=== PATIENT | female | born 1945 | race Caucasian/White ===

== ENCOUNTER → 2023-06-27 08:02 | Outpatient (BNVA) | payer MEDICARE, OTHER, SELFPAY | PROVIDERS: Visit Provider Thoracic Surgery (Cardiothoracic Vascular Surgery) | DX: I96 Gangrene, not elsewhere classified (principal); L97.322 Non-pressure chronic ulcer of left ankle with fat layer exposed | CPT/HCPCS: 11042; 99213; A6021; A6212 ==

== ENCOUNTER → 2023-07-04 08:53 | Outpatient (BNVA) | payer MEDICARE, OTHER, SELFPAY | PROVIDERS: Visit Provider Thoracic Surgery (Cardiothoracic Vascular Surgery) | DX: I96 Gangrene, not elsewhere classified (principal); L97.322 Non-pressure chronic ulcer of left ankle with fat layer exposed | CPT/HCPCS: 11042; A6021 ==

== ENCOUNTER → 2023-07-12 10:03 | Outpatient (BNVA) | payer MEDICARE, OTHER, SELFPAY | PROVIDERS: Visit Provider Nurse Practitioner Family | DX: I96 Gangrene, not elsewhere classified (principal); L97.422 Non-pressure chronic ulcer of left heel and midfoot with fat layer exposed | CPT/HCPCS: 11042; A6021; A6212 ==

== ENCOUNTER → 2023-07-23 10:00 | Outpatient (BNVA) | payer MEDICARE, OTHER, SELFPAY | PROVIDERS: Visit Provider Thoracic Surgery (Cardiothoracic Vascular Surgery) | DX: I96 Gangrene, not elsewhere classified (principal); L97.322 Non-pressure chronic ulcer of left ankle with fat layer exposed | CPT/HCPCS: 97597; A6021; A6212 ×2 ==

== ENCOUNTER → 2023-07-30 10:06 | Outpatient (BNVA) | payer MEDICARE, OTHER, SELFPAY | PROVIDERS: Visit Provider Thoracic Surgery (Cardiothoracic Vascular Surgery) | DX: I96 Gangrene, not elsewhere classified (principal); L97.322 Non-pressure chronic ulcer of left ankle with fat layer exposed | CPT/HCPCS: 97597; A6212 ==

== ENCOUNTER → 2023-08-06 13:22 | Outpatient (BNVA) | payer MEDICARE, OTHER, SELFPAY | PROVIDERS: Visit Provider Thoracic Surgery (Cardiothoracic Vascular Surgery) | DX: Z85.820 Personal history of malignant melanoma of skin (principal); L97.322 Non-pressure chronic ulcer of left ankle with fat layer exposed | CPT/HCPCS: 97597; A6021; A6212 ==

== ENCOUNTER → 2023-08-13 13:13 | Outpatient (BNVA) | payer MEDICARE, OTHER, SELFPAY | PROVIDERS: Visit Provider Nurse Practitioner Family | DX: L97.322 Non-pressure chronic ulcer of left ankle with fat layer exposed (principal) | CPT/HCPCS: 97597; A6021; A6212 ==

== ENCOUNTER → 2023-08-20 10:29 | Outpatient (BNVA) | payer MEDICARE, OTHER, SELFPAY | PROVIDERS: Visit Provider Thoracic Surgery (Cardiothoracic Vascular Surgery) | DX: I96 Gangrene, not elsewhere classified (principal); L97.322 Non-pressure chronic ulcer of left ankle with fat layer exposed | CPT/HCPCS: 97597; A6021; A6212 ==

== ENCOUNTER → 2023-08-23 12:55 | Outpatient (BNVA) | payer MEDICARE, OTHER, SELFPAY | PROVIDERS: Referring Provider Thoracic Surgery (Cardiothoracic Vascular Surgery); Visit Provider Nurse Practitioner Family | DX: Z85.820 Personal history of malignant melanoma of skin (principal); Z80.8 Family history of malignant neoplasm of other organs or systems; D48.5 Neoplasm of uncertain behavior of skin; L57.8 Other skin changes due to chronic exposure to nonionizing radiation; L81.4 Other melanin hyperpigmentation | CPT/HCPCS: 11102; 99203 ==

== ENCOUNTER → 2023-08-27 08:55 | Outpatient (BNVA) | payer MEDICARE, OTHER, SELFPAY | PROVIDERS: Visit Provider Thoracic Surgery (Cardiothoracic Vascular Surgery) | DX: I96 Gangrene, not elsewhere classified (principal); L97.322 Non-pressure chronic ulcer of left ankle with fat layer exposed | CPT/HCPCS: 97597; A6021; A6212 ==

== ENCOUNTER → 2023-09-12 10:50 | Outpatient (BNVA) | payer MEDICARE, OTHER, SELFPAY | PROVIDERS: Visit Provider Thoracic Surgery (Cardiothoracic Vascular Surgery) | DX: I96 Gangrene, not elsewhere classified (principal); L97.322 Non-pressure chronic ulcer of left ankle with fat layer exposed | CPT/HCPCS: 97597; A6021 ==

== ENCOUNTER → 2023-09-26 09:50 | Outpatient (BNVA) | payer MEDICARE, OTHER, SELFPAY | PROVIDERS: Visit Provider Thoracic Surgery (Cardiothoracic Vascular Surgery) | DX: I96 Gangrene, not elsewhere classified (principal); L97.312 Non-pressure chronic ulcer of right ankle with fat layer exposed | CPT/HCPCS: 97597; A6212 ==

== ENCOUNTER 2023-10-29 14:37 | Outpatient (CLI) | payer MEDICARE, OTHER, SELFPAY ==
--- NOTE | 2023-10-29 14:56 | XRR_ITS ---
PROCEDURE INFORMATION: Exam: XR Chest Exam date and time: 10/29/2023 3:12 PM Age: 78 years old Clinical indication: Cough TECHNIQUE: Imaging protocol: Radiologic exam of the chest. Views: 2 views. COMPARISON: No relevant prior studies available. FINDINGS: Lungs: Unremarkable. No consolidation. Pleural spaces: Unremarkable. No pleural effusion. No pneumothorax. Heart/Mediastinum: Unremarkable. No cardiomegaly. Bones/joints: Unremarkable. XR/XR chest 2V* [id number] IMPRESSION: No acute findings.
== END 2023-10-29 14:38 | disposition home or self-care (01) ==
LOC: RAD 14:38
PROVIDERS: PCP Family Medicine; Visit Provider Family Medicine
DX: R05.9 Cough, unspecified (principal)
CPT/HCPCS: 71046

== ENCOUNTER → 2023-11-06 09:22 | Outpatient (BNVA) | payer MEDICARE, OTHER, SELFPAY | PROVIDERS: PCP Family Medicine; Visit Provider Nurse Practitioner Family | DX: Z85.820 Personal history of malignant melanoma of skin (principal); L57.8 Other skin changes due to chronic exposure to nonionizing radiation; L81.4 Other melanin hyperpigmentation; L57.0 Actinic keratosis; L82.1 Other seborrheic keratosis | CPT/HCPCS: 17000; 99213 ==

== ENCOUNTER 2024-01-03 14:23 | Outpatient (CLI) | payer MEDICARE, OTHER, SELFPAY ==
--- NOTE | 2024-01-03 14:26 | XRR_ITS ---
PROCEDURE INFORMATION: Exam: XR Right Shoulder Exam date and time: 01/03/2024 2:30 PM Age: 78 years old Clinical indication: Injury or trauma; Fall; Blunt trauma (contusions or hematomas); Shoulder; Right; Additional info: R shoulder pain after fall TECHNIQUE: Imaging protocol: Radiologic exam of the right shoulder. Views: 2 or more views. COMPARISON: CR XR chest 2V* [id number] 10/29/2023 3:12 PM FINDINGS: Bones/joints: The glenohumeral articulation is grossly intact with moderate osteoarthritis. The acromioclavicular articulation is grossly intact with mild-moderate osteoarthritis. Soft tissues: No gross soft tissue abnormality. XR/XR shoulder RT min 2V* [id number] IMPRESSION: 1. No evidence of fracture or subluxation. If there is concern for labral, muscle or tendon pathology, follow-up outpatient MRI may be helpful.
== END 2024-01-03 14:24 | disposition home or self-care (01) ==
PROVIDERS: PCP Family Medicine; Visit Provider Family Medicine
DX: M25.511 Pain in right shoulder (principal); W19.XXXA Unspecified fall, initial encounter
CPT/HCPCS: 73030

== ENCOUNTER 2024-01-21 14:09 | Outpatient (CLI) | payer OTHER, MEDICARE, SELFPAY ==
--- NOTE | 2024-01-21 14:30 | MR_ITS ---
WS: [id number] MRI RIGHT SHOULDER HISTORY: right shoulder pain after fall, reduced range of motion COMPARISON: Radiographs 01/02/2014 TECHNIQUE: Multiplanar sequences of the shoulder joint are submitted. Moderate AC joint arthritis. There is mild osteophyte encroachment upon the supraspinatus. Mild subac romial impingement. High riding humeral head. No os acromion. Normal position of the biceps tendon. There is a large fluid-filled gap involving the supraspinatus tendon consistent with a full-thickness tear. Supraspinatus tendon is retracted to the medial humeral head. There is also fluid extending in to the rotator cuff interval. There is a small amount of edema in the supraspinatus muscle. Subscapularis tendon normal. Infraspinatus tendon appears normal. There is a small amount of fluid ad jacent to the distal tendon but the tendon itself appears to be normally inserting. There is a small amount of marrow edema in the posterior lateral humeral head. Small trabecular fractures and change i n the normal cortical pattern is identified. No labral tear. IMPRESSION: 1. Large full-thickness tear of the supraspinatus tendon with retraction to the medial humeral head. 2. Marrow edema with trabecular microfractures involving the posterior lateral humeral head. 3. Moderate AC joint arthritis. Mild encroachment upon the remaining supraspinatus tendon. 4. A small amount of edema in the supraspinatus muscle.
== END 2024-01-21 14:10 | disposition home or self-care (01) ==
LOC: RAD 14:10
PROVIDERS: PCP Family Medicine; Visit Provider Family Medicine
DX: M25.511 Pain in right shoulder (principal); W19.XXXA Unspecified fall, initial encounter; M75.121 Complete rotator cuff tear or rupture of right shoulder, not specified as traumatic
CPT/HCPCS: 73221

== ENCOUNTER → 2024-04-03 08:19 | Outpatient (BNVA) | payer MEDICARE, OTHER, SELFPAY | PROVIDERS: PCP Family Medicine; Visit Provider Obstetrics & Gynecology | DX: R10.31 Right lower quadrant pain (principal) | CPT/HCPCS: 76830; 81000 ==

== ENCOUNTER 2024-04-04 10:18 | Outpatient (CLI) | payer MEDICARE, OTHER, SELFPAY ==
--- NOTE | 2024-04-04 10:30 | MM_ITS ---
WS: [id number] Bilateral screening 3D tomosynthesis digital mammogram, 04/04/2024 Clinical Data: Z12.31 - Encounter for screening mammogram for malignant ... Comparison: None. Findings: The breast parenchymal pattern shows fibroglandular tissue. No spiculated masses or clustered calcifi cations are seen. There are no secondary signs of carcinoma. MM/[place] [id number] Impression: 1. Negative bilateral mammogram with no prior exam for review. 2. Recommend annual screening mammograms. BIRADS: 1-Negative FOLLOW UP: 1 Year Follow-up The CAD felt checker was used.
== END 2024-04-04 10:19 | disposition home or self-care (01) ==
PROVIDERS: Visit Provider Obstetrics & Gynecology
DX: Z12.31 Encounter for screening mammogram for malignant neoplasm of breast (principal); R92.333 Mammographic heterogeneous density, bilateral breasts
CPT/HCPCS: 77063; 77067

== ENCOUNTER 2024-04-07 18:02 | Emergency (ER) | payer MEDICARE, OTHER, SELFPAY ==
--- NOTE | 2024-04-07 18:01 | ECG_ITS ---
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 Measurements Intervals [place] Rate: 77 P: 55 OK: 161 QRS: 12 QRSD: 89 T: 51 QT: 350 QTc: 398 Interpretive Statements SINUS RHYTHM No previous ECG available for comparison Electronically Signed On 04-11-2024 13:19:43 CDT by Corey Mcgowan M.D. [id number] f
--- NOTE | 2024-04-07 18:03 | XRR_ITS ---
PROCEDURE INFORMATION: Exam: XR Chest Exam date and time: 04/07/2024 6:20 PM Age: 78 years old Clinical indication: Chest wall pain; Additional info: Cp TECHNIQUE: Imaging protocol: Radiologic exam of the chest. Views: 1 view. COMPARISON: CR XR chest 2V* [id number] 10/29/2023 3:12 PM FINDINGS: Lungs: Left upper lobe 15.5 mm nodule may be partially calcified, dedicated chest CT advised for further evaluation, findings are somewhat similar to prior exam. Pleural spaces: Unremarkable. No pleural effusion. No pneumothorax. Heart/Mediastinum: Unremarkable. No cardiomegaly. Bones/joints: Unremarkable. XR/XR chest 1V portable [id number] IMPRESSION: 1. No acute findings. 2. Left upper lobe 15.5 mm nodule may be partially calcified, dedicated chest CT advised for further evaluation, findings are somewhat similar to prior exam.
[2024-04-07 18:07] VITALS: BP 145/70; PULSE 78; RESP 16; TEMP 36.7; O2SAT 97
[2024-04-07 19:17] LABS: Basophils % 0.2 %; Eosinophils # 0.6 10^3/uL (0.0-0.8); Eosinophils % 4.6 %; Hematocrit 33.3 % (36-47); Lymphocytes # 3.3 10^3/uL (0.8-4.8); Lymphocytes % 27.5 %; Mean Corpuscular HGB Conc 32.7 g/dL (30-55); Mean Corpuscular Hemoglobin 32.6 pg (27-33); Mean Corpuscular Volume 99.7 fl (85-98); Mean Platelet Volume 10.5 fL (7.4-10.4); Monocytes # 3.3 10^3/uL (0.2-0.9); Monocytes % 27.8 %; Neutrophils # 4.63 10^3/uL (1.8-7.7); Neutrophils % 38.5 %; Nucleated Red Blood Cells % 0 %; Platelet Count 606 10^3/cmm (157-399); Red Blood Count 3.34 10^6/uL (3.85-5.65); Red Cell Distribution Width 14.8 % (12.1-15.1); White Blood Count 12.02 10^3/uL (3.29-11.43)
[2024-04-07 19:37] LABS: Troponin(5th) Baseline 8 ng/L (0-10)
[2024-04-07 19:44] LABS: Alanine Aminotransferase 12 U/L (0-33); Albumin Level 4.7 g/dL (3.5-5.2); Alkaline Phosphatase 98 U/L (35-105); Anion Gap 16.6 (5-19); Aspartate Amino Transferase 10 U/L (0-32); Blood Urea Nitrogen 25 mg/dL (8-23); Calcium 9.8 mg/dL (8.5-10.5); Carbon Dioxide 20 mmol/L (22-29); Chloride 106 mmol/L (98-107); Creatinine Clr Calc Pharmacy 38.6846; Globulin 3.5 g/dL (1.3-4.6); Glucose 98 mg/dL (65-115); NT Pro B Type Natriuretic Pept 331 pg/mL (0-450); Osmolality Calculated 290 mOsm/kg (285-295); Potassium 4.6 mmol/L (3.5-5.1); Sodium 138 mmol/L (136-145); Total Bilirubin 0.3 mg/dL (0.15-1.2); Total Protein 8.2 g/dL (6.6-8.7)
--- NOTE | 2024-04-07 20:47 | ECG_ITS ---
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 Measurements Intervals [place] Rate: 74 P: 68 NH: 165 QRS: 28 QRSD: 90 T: 52 QT: 365 QTc: 405 Interpretive Statements SINUS RHYTHM Compared to ECG 04/07/2024 18:01:44 No significant changes Electronically Signed On 04-11-2024 13:47:06 CDT by Corey Mcgowan M.D. [id number]
[2024-04-07 20:56] LABS: Troponin 5 2HR 9.22 ng/L (0-10); Troponin 5 2HR Delta 1.22 ABS# (0-10)
[2024-04-07] MEDS: lidocaine 2% viscous 15 ML, aluminum-mag hydrox-simethicon 30 ML, sucralfate oral liq 1 GM PO (22:08)
[2024-04-07 22:09] VITALS: BP 103/76; PULSE 81; RESP 16; O2SAT 97
--- NOTE | 2024-04-07 22:38 | W.ED.CHESTPA ---
HPI - Chest Pain General: Chief Complaint: Chest Pain Stated Complaint: chest pressure sob Time Seen by Provider: 04/07/24 20:32 Source: patient Mode of arrival: ambulatory Limitations: no limitations History of Present Illness: Patient presents emergency department today for evaluation and treatment of approximately 2 weeks of lower, retrosternal chest discomfort. She states that it is more noticeable and more painful at night. She has not been running any fevers. No coughing. She does have a history of leukemia and reports that for the last 3 years has been on oral chemotherapy. She developed symptoms of urinary tract infection a week or so ago after a long car trip and is currently on Bactrim. She reports dysuria and urinary symptoms as significantly improved if not completely resolved. Patient has had a history of GERD in the past. She reports having to have esophageal dilatation in the past but, states this discomfort is different than what she remembers from her previous reflux. She has also been taking Tums and a Prilosec for the last several days without noticeable improvement of her symptoms. Patient had pizza for lunch. She has not been vomiting. Review of Systems General: Reports: 10 or more systems reviewed and unremarkable except in HPI and below PFSH ED PFSH: Family History Mother Diabetes Hypertension Sister CAD (coronary artery disease) Heart disease Hypertension Diabetes Father Lymphoma Brother Hypertension Denies family history of Colon cancer Ovarian cancer Hyperlipidemia Breast cancer Uterine cancer Thyroid disease Stroke Social History Smoking and tobacco/nicotine status: former use of tobacco/nicotine Alcohol intake: never Substance/Drug Use: never Household members: spouse Marital status: Marital status details: 18 Number of children: 4 Current 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 status: retired Pam/Rastafari: Yazidism Physical Exam Const: COMMON NORMALS: no acute distress, patient oriented x3 and alert Eye: COMMON NORMALS: Equal, round and reactive pupils present, EOMs intact bilaterally and conjunctivae normal CONJUNCTIVA: Yes conjunctivae normal PUPIL: Yes Equal, round and reactive pupils present Neck/C-Spine: COMMON NORMALS: no JVD Lymph: LYMPHATIC: no lymphadenopathy noted Resp: COMMON NORMALS: normal respiratory effort, No retractions and No use of accessory muscles Cardio: COMMON NORMALS: no JVD, regular rate and regular rhythm RATE: regular rate RHYTHM: regular rhythm : COMMON NORMALS: Yes no CVA tenderness BLADDER/KIDNEY EXAM: Yes no CVA tenderness Back/Pelvis: COMMON NORMALS: no CVA tenderness, thoracic and lumbar spine normal to inspection and thoraco-lumbar ROM normal Extremity: COMMON NORMALS: normal to inspection, full ROM and no pedal edema Neuro: COMMON NORMALS: patient oriented x3 SENSORIUM/ORIENTATION: Yes alert Skin: COMMON NORMALS: no rashes or lesions noted and turgor normal GENERAL SKIN EXAM: no rashes or lesions noted and turgor normal Course Vital Signs: Vital signs: Vital Signs Temperature 98.1 F 04/07/24 22:51 Pulse Rate 81 04/07/24 22:51 Respiratory Rate 16 04/07/24 22:51 Blood Pressure 103/76 04/07/24 22:51 Pulse Oximetry 97 04/07/24 22:51 MDM - Chest Pain Medical Decision Making Patient's physical examination is reassuring today. Lab work shows no signs of any acute concerns and chest x-ray reveals a stable, calcifying area approximately 15 mm in size, similar to previous findings in previous films. No signs of any pleural effusion, cardiomegaly, or pneumonias. Discussed the case with Dr. Clark. As the cardiac evaluation and infection evaluation are otherwise negative, recommended treatment with a GI cocktail to see if symptoms are improved. Discussed with patient who wishes to proceed with the GI cocktail and, was found to have improvement of her symptoms after treatment. She was encouraged to continue using her Prilosec regularly and information regarding dietary recommendations provided. She is still requested to have follow-up with her primary care doctor or her oncologist to discuss her symptoms. She was given strict return precautions for change or worsening in condition including dizziness, syncope, shortness of breath, one-sided facial droop or one-sided body weakness. For the if she needs to be seen and reevaluated back in the ER. She verbalized understanding and agreement to treatment plan. Differential Diagnosis Unlikely acute massive pulmonary embolism, acute respiratory failure, acute myocardial infarction, cardiac arrest or sudden cardiac Lab Data 04/07/24 18:40 04/07/24 18:40 Radiology Impressions Chest X-Ray 04/07/24 18:03 IMPRESSION: 1. No acute findings. 2. Left upper lobe 15.5 mm nodule may be partially calcified, dedicated chest CT advised for further evaluation, findings are somewhat similar to prior exam. Laboratory Results WBC 12.02 10^3/uL (3.29-11.43) H 04/07/24 18:40 RBC 3.34 10^6/uL (3.85-5.65) L 04/07/24 18:40 Hgb 10.90 g/dL (11.27-16.99) L 04/07/24 18:40 Hct 33.3 % (36-47) L 04/07/24 18:40 MCV 99.7 fl (85-98) H 04/07/24 18:40 MCH 32.6 pg (27-33) 04/07/24 18:40 MCHC 32.7 g/dL (30-55) 04/07/24 18:40 RDW 14.8 % (12.1-15.1) 04/07/24 18:40 Plt Count 606 10^3/cmm (157-399) H 04/07/24 18:40 MPV 10.5 fL (7.4-10.4) H 04/07/24 18:40 Neut % (Auto) 38.5 % 04/07/24 18:40 Lymph % (Auto) 27.5 % 04/07/24 18:40 [place] % (Auto) 27.8 % 04/07/24 18:40 Eos % (Auto) 4.6 % 04/07/24 18:40 Baso % (Auto) 0.2 % 04/07/24 18:40 Neut # (Auto) 4.63 10^3/uL (1.8-7.7) 04/07/24 18:40 Lymph # (Auto) 3.3 10^3/uL (0.8-4.8) 04/07/24 18:40 [place] # (Auto) 3.3 10^3/uL (0.2-0.9) H 04/07/24 18:40 Eos # (Auto) 0.6 10^3/uL (0.0-0.8) 04/07/24 18:40 Baso # (Auto) 0.0 10^3/uL (0.0-0.1) 04/07/24 18:40 Nucleated RBC % (auto) 0 % 04/07/24 18:40 Nucleated RBCs # 0.0 /100WBC 04/07/24 18:40 Sodium 138 mmol/L (136-145) 04/07/24 18:40 Potassium 4.6 mmol/L (3.5-5.1) 04/07/24 18:40 Chloride 106 mmol/L (98-107) 04/07/24 18:40 Carbon Dioxide 20 mmol/L (22-29) L 04/07/24 18:40 Anion Gap 16.6 (5-19) 04/07/24 18:40 BUN 25 mg/dL (8-23) H 04/07/24 18:40 Creatinine 1.1 mg/dL (0.5-0.9) H 04/07/24 18:40 GFR Calculation Not Reportable 04/07/24 18:40 Glucose 98 mg/dL (65-115) 04/07/24 18:40 Calculated Osmolality 290 mOsm/kg (285-295) 04/07/24 18:40 Calcium 9.8 mg/dL (8.5-10.5) 04/07/24 18:40 Total Bilirubin 0.3 mg/dL (0.15-1.2) 04/07/24 18:40 AST 10 U/L (0-32) 04/07/24 18:40 ALT 12 U/L (0-33) 04/07/24 18:40 Alkaline Phosphatase 98 U/L (35-105) 04/07/24 18:40 Troponin T Baseline 8 ng/L (0-10) 04/07/24 18:40 Troponin T 120 Minute 9.22 ng/L (0-10) 04/07/24 20:20 Delta Troponin T 1.22 ABS# (0-10) 04/07/24 20:20 NT-Pro-B Natriuret Pep 331 pg/mL (0-450) 04/07/24 18:40 Total Protein 8.2 g/dL (6.6-8.7) 04/07/24 18:40 Albumin 4.7 g/dL (3.5-5.2) 04/07/24 18:40 Globulin 3.5 g/dL (1.3-4.6) 04/07/24 18:40 All radiology interpretation(s) finalized by discharge Discharge Plan Discharge Patient Disposition: Home Clinical Impression: Chest pain, non-cardiac, Leukemia Condition: Stable Prescriptions: No Action clopidogrel 75 mg tablet 75 mg PO DAILY Jakafi 10 mg tablet 10 mg PO BID furosemide 20 mg tablet 40 mg PO DAILY PRN omeprazole 40 mg capsule,delayed release(DR/EC) 40 mg PO DAILY PRN meloxicam 15 mg tablet 15 mg PO DAILY PRN multivitamin Tablet 1 tab PO DAILY Papaya Enzyme Tablet 1 tab PO TID Rx Instructions: administer with meals ketoconazole 2 % shampoo 1 applic topical Q14D PRN Galzin 50 mg (zinc) capsule 30 mg PO DAILY Glucosamine-Chondroitin Complx Capsule PO BID acetaminophen [Tylenol Extra Strength] 500 mg tablet 500 mg PO Q6H PRN calcium carbonate 600 mg calcium (1,500 mg) tablet 1,200 mg PO BID calcium carbonate [Tums] 200 mg calcium (500 mg) tablet,chewable 200 mg PO BID PRN ibuprofen 200 mg tablet 200 mg PO Q6H PRN docusate sodium [Colace] 100 mg capsule 100 mg PO DAILY PRN magnesium 250 mg tablet 500 mg PO DAILY clobetasol 0.05 % solution 1 applic topical DAILY loratadine [Allergy Relief (loratadine)] 10 mg tablet 10 mg PO DAILY cranberry 500 mg capsule 2,000 mg PO DAILY Rx Instructions: administer with meals vitamin B complex Capsule 1 cap PO DAILY cholecalciferol (vitamin D3) 50 mcg (2,000 unit) capsule 50 mcg PO DAILY turmeric 400 mg capsule 800 mg PO DAILY Folic Acid Vitamin B9 1,000 mg PO DAILY Iron 36 mg plus VC PO DAILY Rx Instructions: with 4 oz prune juice avmacol with myrosimax PO Rx Instructions: daily with meal sulfamethoxazole-trimethoprim [Bactrim DS] 800-160 mg tablet 1 tab PO BID 7 Days Qty: 14 0RF Discharge Orders: Discharge ED (Routine); Ordered 04/07/24 Ordered By: Alexa Rodriguez Referrals: Sandra Platt MD [Primary Care Provider] - Discharge Diet: Usual diet Discharge Activity: Increase activity as tolerated Patient Instructions: Chest Pain (ED), GERD (Gastroesophageal Reflux Disease) (DC) Activity Restrictions/Additional Instructions: Lab work today shows stable white cells, red cells, and platelet counts. No other abnormal labs appreciated today. Your cardiac evaluation showed no signs of any heart involvement of this chest pain. As you did have some improvement with her GI cocktail I would encourage you to start back on your Prilosec regularly and call your doctor first thing in the morning to schedule follow-up appointment. X-ray shows an area of calcification in your lung which has been visualized in the past but, the radiologist recommended further evaluation of this area in the future. However, I do not believe it is the cause of your discomfort as it is not located in the area you are indicating of pain. However, if you have any change or worsening in your chest pain including shortness of breath, dizziness lightheadedness or weakness we do recommend being seen and reevaluated in the ER. 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
[2024-04-07 22:51] VITALS: BP 103/76; PULSE 81; RESP 16; TEMP 36.7; O2SAT 97
== END 2024-04-07 22:53 | disposition home or self-care (01) ==
PROVIDERS: Emergency Medicine; Emergency Provider Physician Assistant; PCP Family Medicine
DX: R07.89 Other chest pain (principal); C95.90 Leukemia, unspecified not having achieved remission; Z79.02 Long term (current) use of antithrombotics/antiplatelets; Z87.891 Personal history of nicotine dependence
CPT/HCPCS: 36415; 71045; 80053; 83880; 84484; 85025; 93005; 99285

== ENCOUNTER → 2024-04-11 09:11 | Outpatient (BNVA) | payer MEDICARE, OTHER, SELFPAY | PROVIDERS: PCP Family Medicine; Visit Provider Family Medicine | DX: N39.0 Urinary tract infection, site not specified (principal) | CPT/HCPCS: 81000 ==

== ENCOUNTER → 2024-05-06 11:13 | Outpatient (BNVA) | payer MEDICARE, OTHER, SELFPAY | PROVIDERS: PCP Family Medicine; Visit Provider Nurse Practitioner Family | DX: L57.8 Other skin changes due to chronic exposure to nonionizing radiation (principal); L81.4 Other melanin hyperpigmentation; Z85.820 Personal history of malignant melanoma of skin; L57.0 Actinic keratosis; L82.1 Other seborrheic keratosis; S40.861A Insect bite (nonvenomous) of right upper arm, initial encounter; S30.861A Insect bite (nonvenomous) of abdominal wall, initial encounter; S30.860A Insect bite (nonvenomous) of lower back and pelvis, initial encounter; X58.XXXA Exposure to other specified factors, initial encounter; D18.01 Hemangioma of skin and subcutaneous tissue | CPT/HCPCS: 10120; 17000; 99214 ==

== ENCOUNTER → 2024-05-13 11:10 | Outpatient (BNVA) | payer MEDICARE, OTHER, SELFPAY | PROVIDERS: PCP Family Medicine; Visit Provider Student in an Organized Health Care Education/Training Program | DX: M75.121 Complete rotator cuff tear or rupture of right shoulder, not specified as traumatic; M19.011 Primary osteoarthritis, right shoulder | CPT/HCPCS: 99213 ==

== ENCOUNTER 2024-06-24 09:21 | Outpatient (CLI) | payer MEDICARE, OTHER, SELFPAY ==
--- NOTE | 2024-06-24 09:15 | CTR_ITS ---
PROCEDURE INFORMATION: Exam: CT Abdomen And Pelvis With Contrast Exam date and time: 06/24/2024 11:11 AM Age: 78 years old Clinical indication: Abdominal pain; Localized; Right; Prior surgery; Surgery date: 6+ months; Surgery type: Appy, bowel obstruction; Patient HX: Leukemia; Additional info: R10.9 - unspecified abdominal pain TECHNIQUE: Imaging protocol: Computed tomography of the abdomen and pelvis with contrast. Radiation optimization: All CT scans at this facility use at least one of these dose optimization techniques: automated exposure control; mA and/or kV adjustment per patient size (includes targeted exams where dose is matched to clinical indication); or iterative reconstruction. Contrast material: OMNI 350; Contrast volume: 100 ml; Contrast route: INTRAVENOUS (IV); COMPARISON: US transvaginal [id number] 04/03/2024 8:25 AM RADIATION DOSE METRICS: Total DLP (mGy-cm): 391.35 FINDINGS: Lungs: Multiple old calcified granulomas of the right lung base. Liver: The liver is normal in appearance. No focal liver mass or intrahepatic biliary dilatation. Gallbladder and biliary ducts: The gallbladder is unremarkable with no calcified stones visualized and no strandy inflammatory changes surrounding the gallbladder. Pancreas: The pancreas is normal in appearance. No evidence of pancreatic ductal dilatation. Spleen: There is a 3.2 cm hypodense band along the inferior margin of the spleen. This lesion is nonspecific. Consider initial evaluation with ultrasound. The spleen is mildly enlarged measuring about 13.6 cm. Adrenal glands: The adrenal glands are normal in appearance. Kidneys and ureters: There are bilateral nonobstructing calculi in the calices of each kidney measuring up to 3.5 mm in a lower pole calyx on the left side. Stomach and bowel: The small bowel loops are not thickened and are nondilated. There is colonic diverticulosis but no evidence of diverticulitis. Appendix: The appendix is not identified, but there are no inflammatory changes in its expected region. Intraperitoneal space: Unremarkable. No free air. No significant fluid collection. Vasculature: Unremarkable. No abdominal aortic aneurysm. Lymph nodes: Unremarkable. No enlarged lymph nodes. Urinary bladder: The urinary bladder is normal in appearance. Reproductive: Unremarkable as visualized. Bones/joints: No acute osseous lesions. There are multilevel chronic degenerative changes throughout the lumbar spine. Soft tissues: Unremarkable. CT/CT abdomen pelvis w con* [id number] IMPRESSION: 1. Colonic diverticulosis but no evidence of diverticulitis. 2. Mild splenomegaly. There is a 3.2 cm hypodense band at the inferior margin of the spleen, nonspecific but consider nonemergent ultrasound of the spleen to further evaluate. 3. Bilateral nonobstructing renal calculi.
[2024-06-24] MEDS: iohexol 350 mg/mL 500 mL Btl (per mL) PO (10:09)
[2024-06-24 11:23] LABS: Blood Urea Nitrogen 20 mg/dL (8-23)
[2024-06-24] MEDS: iohexol 350 mg/mL 500 mL Btl (per mL) IV (11:37)
== END 2024-06-24 09:22 | disposition home or self-care (01) ==
PROVIDERS: PCP Family Medicine; Visit Provider Family Medicine
DX: K57.90 Diverticulosis of intestine, part unspecified, without perforation or abscess without bleeding (principal); Z98.890 Other specified postprocedural states; J84.10 Pulmonary fibrosis, unspecified; D73.89 Other diseases of spleen; R16.1 Splenomegaly, not elsewhere classified; N20.0 Calculus of kidney; R10.9 Unspecified abdominal pain
CPT/HCPCS: 74177; 82565; 84520

== ENCOUNTER 2024-06-25 12:07 | Outpatient (CLI) | payer MEDICARE, OTHER, SELFPAY ==
--- NOTE | 2024-06-25 12:13 | XR_ITS ---
WS: [id number] Examination: XR lumbar spine 2-3V* [id number] Reason for Exam: worsening acute low back pain Date: 06/25/2024 Comparison: None. Findings: The bone density is diminished. The pedicles are intact. There is mild convexity with curvature to the left There is superior endplate compression of L4. There is subtle anterolisthesis at L3-4 with grade 1 an terolisthesis at L4-5. There is narrowing of the L4-5 and L5-S1 disc. Anterior lipping and osteophyte s are present. There is diffuse facet arthropathy. XR/XR lumbar spine 2-3V* [id number] Impression: There is osteopenia Superior endplate compression of L4 is identified, age-indeterminate. Clinical correlation for pain at this level is needed. There is subtle L3-4 anterolisthesis and grade 1 L4-5 anterolisthesis Degenerative changes are present. The disc space narrowing anterior lipping and prominent facet arthropathy as above.
== END 2024-06-25 12:08 | disposition home or self-care (01) ==
LOC: RAD 12:10
PROVIDERS: PCP Family Medicine; Visit Provider Family Medicine
DX: S32.040A Wedge compression fracture of fourth lumbar vertebra, initial encounter for closed fracture (principal); M85.88 Other specified disorders of bone density and structure, other site; X58.XXXA Exposure to other specified factors, initial encounter; M51.36 Other intervertebral disc degeneration, lumbar region
CPT/HCPCS: 72100

== ENCOUNTER 2024-06-26 07:43 | Outpatient (CLI) | payer MEDICARE, OTHER, SELFPAY ==
--- NOTE | 2024-06-26 08:00 | US_ITS ---
WS: [id number] Limited abdomen ultrasound. HISTORY: 3.2 cm hypodense band at the inferior margin of the spleen COMPARISON: CT 06/24/2024 Spleen measures 13.2 x 11.6 x 4.6 cm. Previous described hypodense band noted by CT is not evident on the ultrasound. There is a normal configuration of the spleen. This abnormal enhancement on the CT m ay have been due to the early imaging obtained for the exam. No abnormality or infarct noted by ultra sound. There is no adjacent fluid. LEFT kidney is negative. US/US abdomen limited [id number] IMPRESSION: Unremarkable ultrasound evaluation of the spleen. Variable attenuation in the s pleen on the CT of may've been related to imaging during early contrast injecti on.
== END 2024-06-26 07:44 | disposition home or self-care (01) ==
LOC: RAD 07:43
PROVIDERS: PCP Family Medicine; Visit Provider Family Medicine
DX: Q89.09 Congenital malformations of spleen (principal)
CPT/HCPCS: 76705

== ENCOUNTER → 2024-07-03 15:23 | Outpatient (BNVA) | payer MEDICARE, OTHER, SELFPAY | PROVIDERS: PCP Family Medicine; Visit Provider Orthopaedic Surgery | DX: S32.040A Wedge compression fracture of fourth lumbar vertebra, initial encounter for closed fracture (principal); X58.XXXA Exposure to other specified factors, initial encounter | CPT/HCPCS: 72100 ==

== ENCOUNTER 2024-07-07 03:24 | Emergency (ER) | payer MEDICARE, OTHER, SELFPAY ==
[2024-07-07 03:26] VITALS: BP 143/63; PULSE 90; RESP 18; TEMP 37.4; O2SAT 97; BMI 28.3
--- NOTE | 2024-07-07 03:57 | W.ED.BACK ---
HPI - Back Pain/Injury General: Chief Complaint: Back Pain/Injury Stated Complaint: BACK PAIN Time Seen by Provider: 07/07/24 03:27 History of Present Illness: 78-year-old female tells me she has a compression fracture at L4. She has been seen by orthopedic spine for this. She has an MRI scheduled for later this morning at 8 AM. She says that she has been on oxycodone and ibuprofen for pain, but that has not really been helping. She says that when the pain gets severe, she cannot make it to the bathroom before she loses control of her urine. She denies any fever. She states that she last took oxycodone around 8 PM last night. She could not get out of bed this morning, so she called an ambulance. Related Data Home Medications Medication Instructions Recorded Confirmed clopidogrel 75 mg tablet 75 mg PO DAILY 10/25/23 07/03/24 furosemide 20 mg tablet 40 mg PO DAILY PRN 10/25/23 07/03/24 omeprazole 40 mg capsule,delayed 40 mg PO DAILY PRN 10/25/23 07/03/24 release ruxolitinib 10 mg tablet (Jakafi) 10 mg PO BID 10/25/23 07/03/24 Folic Acid Vitamin B9 PO DAILY 03/10/24 07/03/24 Iron 36 mg plus VC PO DAILY 03/10/24 07/03/24 acetaminophen 500 mg tablet 500 mg PO Q6H PRN 03/10/24 07/03/24 (Tylenol Extra Strength) avmacol with myrosimax PO 03/10/24 07/03/24 calcium carbonate 1,200 mg PO BID 03/10/24 07/03/24 calcium carbonate (Tums) 200 mg PO BID PRN 03/10/24 07/03/24 carica papaya (Papaya Enzyme 1 tab PO TID 03/10/24 07/03/24 tablet) cholecalciferol (vitamin D3) 50 50 mcg PO DAILY 03/10/24 07/03/24 mcg (2,000 unit) capsule clobetasol 0.05 % scalp solution 1 applic topical DAILY 03/10/24 07/03/24 cranberry 500 mg capsule 2,000 mg PO DAILY 03/10/24 07/03/24 docusate sodium 100 mg capsule 100 mg PO DAILY PRN 03/10/24 07/03/24 (Colace) [id number] C-Mn cap PO BID 03/10/24 07/03/24 capsule (Glucosamine-Chondroitin Complex capsule) ibuprofen 200 mg tablet 200 mg PO Q6H PRN 03/10/24 07/03/24 ketoconazole 2 % shampoo 1 applic topical Q14D PRN 03/10/24 07/03/24 loratadine 10 mg tablet (Allergy 10 mg PO DAILY 03/10/24 07/03/24 Relief (loratadine)) magnesium 250 mg tablet 500 mg PO DAILY 03/10/24 07/03/24 meloxicam 15 mg tablet 15 mg PO DAILY PRN 03/10/24 07/03/24 multivitamin 1 tab PO DAILY 03/10/24 07/03/24 turmeric 400 mg capsule 800 mg PO DAILY 03/10/24 07/03/24 vitamin B complex 1 cap PO DAILY 03/10/24 07/03/24 zinc acetate 50 mg (zinc) capsule 30 mg PO DAILY 03/10/24 07/03/24 (Galzin) Previous Rx's Medication Instructions Recorded sulfamethoxazole 800 1 tab PO BID 7 days #14 tabs 04/03/24 mg-trimethoprim 160 mg tablet (Bactrim DS) oxybutynin chloride 5 mg See Rx Instructions .Route 05/01/24 tablet,extended release 24 hr .COMPLEX #90 tabs lidocaine 5 % topical patch 3 patch topical DAILY #30 ea 07/03/24 (Tridacaine) oxycodone 10 mg tablet 10 mg PO Q4H PRN pain 10 days #40 07/03/24 tabs hydromorphone 2 mg tablet 2 mg PO Q6H PRN pain #7 tabs 07/07/24 methylprednisolone 4 mg tablets in See Rx Instructions PO .COMPLEX 07/07/24 a dose pack (Medrol (Ron)) #21 ea Allergies Allergy/AdvReac Type Severity Reaction Status Date / Time Tetanus Vaccines and Toxoid Allergy Unknown Verified 07/07/24 03:31 Predisone Allergy Intermediate confusion Uncoded 07/07/24 03:31 [facility] PFSH: Family History Mother Diabetes Hypertension Sister CAD (coronary artery disease) Heart disease Hypertension Diabetes Father Lymphoma Brother Hypertension Denies family history of Colon cancer Ovarian cancer Hyperlipidemia Breast cancer Uterine cancer Thyroid disease Stroke Social History Smoking and tobacco/nicotine status: never used tobacco/nicotine Alcohol intake: never Substance/Drug Use: never Household members: spouse Marital status: Marital status details: 18 Number of children: 4 Current 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 status: retired [employer] Physical Exam Const: GENERAL APPEARANCE: cooperative and frail appearing; not ill appearing HENMT: COMMON NORMALS: normocephalic, atraumatic and Normal external nose present HEAD & SCALP: normocephalic and atraumatic FACE & SINUS: normal facial exam and face symmetric NOSE: Normal external nose present Eye: COMMON NORMALS: Equal, round and reactive pupils present and EOMs intact bilaterally PUPIL: Yes Equal, round and reactive pupils present Neck/C-Spine: GENERAL: Yes trachea midline Chest: CHEST: Yes Symmetrical chest wall rise Resp: COMMON NORMALS: normal respiratory effort, No retractions, No use of accessory muscles and clear to auscultation bilaterally AUSCULTATION: clear to auscultation bilaterally Cardio: COMMON NORMALS: regular rate and regular rhythm RATE: regular rate RHYTHM: regular rhythm GI: COMMON NORMALS: Normal to inspection, nondistended, normoactive bowel sounds present : COMMON NORMALS: Yes no CVA tenderness BLADDER/KIDNEY EXAM: Yes no CVA tenderness Back/Pelvis: COMMON NORMALS: no CVA tenderness LUMBAR SPINE/LOWER BACK: Yes paraspinal muscle tenderness and Yes straight leg raise negative bilaterally Extremity: COMMON NORMALS: no pedal edema Neuro: EVERARDO COMA SCALE: document GCS findings Everardo coma scale eye opening: Spontaneous Everardo coma scale verbal response: Orientated Everardo coma scale motor response: Obey commands Everardo coma scale total score: 15 SENSORY EXAM: Yes extremities (intact) Psych: COMMON NORMALS: speech normal SPEECH: Yes normal speech Skin: COMMON NORMALS: no rashes or lesions noted GENERAL SKIN EXAM: no rashes or lesions noted Course Vital Signs: Vital signs: Vital Signs Temperature 100.5 F H 07/07/24 05:00 Pulse Rate 74 07/07/24 07:39 Respiratory Rate 17 07/07/24 07:39 Blood Pressure 169/88 07/07/24 07:39 Pulse Oximetry 92 07/07/24 07:39 Oxygen Delivery Me thod Nasal Cannula 07/07/24 05:30 MDM - Back Pain/Injury Medical Decision Making 78-year-old female who essentially called an ambulance because she could not get out of bed this morning. She has an MRI scheduled of her back later this morning. She is running a bit of a temperature. Because of this, and what sounds like urge incontinence over the bladder, urinalysis and laboratory are pending. She has nonradicular pain. No red flag symptoms otherwise. No saddle anesthesia, etc. She is given dexamethasone, Toradol and morphine here. Pain medication and repeated with 1/2 mg Dilaudid IV. She is given IV Rocephin for coverage for the temperature after blood cultures. Temperature came up to 100.5. COVID/flu/RSV swabs are negative. She does not have significant respiratory symptoms. Her MRI is scheduled at 8 AM. Duragesic patch was ordered for baseline pain control, but pharmacy denied this order. instead she will be given oral hydromorphone and will stop the oxycodone in the meantime for pain control She will be given methylprednisolone for back pain as well. She will follow-up with orthopedic surgeon. Labs 07/07/24 04:16 07/07/24 04:16 Radiology Impressions Chest X-Ray 07/07/24 05:09 IMPRESSION: No acute findings. Laboratory Results WBC 14.78 10^3/uL (3.29-11.43) H 07/07/24 04:16 RBC 3.03 10^6/uL (3.85-5.65) L 07/07/24 04:16 Hgb 9.70 g/dL (11.27-16.99) L 07/07/24 04:16 Hct 30.1 % (36-47) L 07/07/24 04:16 MCV 99.3 fl (85-98) H 07/07/24 04:16 MCH 32.0 pg (27-33) 07/07/24 04:16 MCHC 32.2 g/dL (30-55) 07/07/24 04:16 RDW 15.1 % (12.1-15.1) 07/07/24 04:16 Plt Count 461 10^3/cmm (157-399) H 07/07/24 04:16 MPV 10.8 fL (7.4-10.4) H 07/07/24 04:16 Neut % (Auto) 42.8 % 07/07/24 04:16 Lymph % (Auto) 13.7 % 07/07/24 04:16 [place] % (Auto) 36.5 % 07/07/24 04:16 Eos % (Auto) 5.5 % 07/07/24 04:16 Baso % (Auto) 0.1 % 07/07/24 04:16 Neut # (Auto) 6.31 10^3/uL (1.8-7.7) 07/07/24 04:16 Lymph # (Auto) 2.0 10^3/uL (0.8-4.8) 07/07/24 04:16 [place] # (Auto) 5.4 10^3/uL (0.2-0.9) H 07/07/24 04:16 Eos # (Auto) 0.8 10^3/uL (0.0-0.8) 07/07/24 04:16 Baso # (Auto) 0.0 10^3/uL (0.0-0.1) 07/07/24 04:16 Nucleated RBC % (auto) 0 % 07/07/24 04:16 Nucleated RBCs # 0.0 /100WBC 07/07/24 04:16 Sodium 141 mmol/L (136-145) 07/07/24 04:16 Potassium 3.6 mmol/L (3.5-5.1) 07/07/24 04:16 Chloride 103 mmol/L (98-107) 07/07/24 04:16 Carbon Dioxide 27 mmol/L (22-29) 07/07/24 04:16 Anion Gap 14.6 (5-19) 07/07/24 04:16 BUN 14 mg/dL (8-23) 07/07/24 04:16 Creatinine 0.9 mg/dL (0.5-0.9) 07/07/24 04:16 GFR Calculation Not Reportable 07/07/24 04:16 Glucose 106 mg/dL (65-115) 07/07/24 04:16 Calculated Osmolality 293 mOsm/kg (285-295) 07/07/24 04:16 Lactic Acid 0.9 mmol/L (0.5-2.2) 07/07/24 04:16 Calcium 9.4 mg/dL (8.5-10.5) 07/07/24 04:16 Total Bilirubin 0.4 mg/dL (0.15-1.2) 07/07/24 04:16 AST 17 U/L (0-32) 07/07/24 04:16 ALT 12 U/L (0-33) 07/07/24 04:16 Alkaline Phosphatase 174 U/L (35-105) H 07/07/24 04:16 C-Reactive Protein 29.6 mg/L (0.0-4.9) H 07/07/24 04:16 Total Protein 7.6 g/dL (6.6-8.7) 07/07/24 04:16 Albumin 4.2 g/dL (3.5-5.2) 07/07/24 04:16 Globulin 3.4 g/dL (1.3-4.6) 07/07/24 04:16 Urine Color Yellow (Yellow) 07/07/24 05:03 Urine Appearance Cloudy (CLEAR) A 07/07/24 05:03 Urine pH 7 (5-7) 07/07/24 05:03 Ur Specific [place] 1.015 (1.005-1.030) 07/07/24 05:03 Urine Protein Neg (Negative) 07/07/24 05:03 Urine Glucose (UA) Norm (Normal) 07/07/24 05:03 Urine Ketones Negative (Negative) 07/07/24 05:03 Urine Blood Neg (Negative) 07/07/24 05:03 Urine Nitrate Negative (Negative) 07/07/24 05:03 Urine Bilirubin Neg (Negative) 07/07/24 05:03 Urine Urobilinogen Norm mg/dL (Negative) 07/07/24 05:03 Ur Leukocyte Esterase Negative (Negative) 07/07/24 05:03 Urine RBC None /hpf (0-2) 07/07/24 05:03 Urine WBC None /hpf (0-5) 07/07/24 05:03 Ur Squamous Epith Cells None /hpf (0-5) 07/07/24 05:03 Amorphous Sediment Not Reportable 07/07/24 05:03 Urine Bacteria 2+ /hpf (NONE) H 07/07/24 05:03 Coronavirus (PCR) Negative (Negative) 07/07/24 05:18 Influenza A (PCR) Negative (Negative) 07/07/24 05:18 Influenza Type B (PCR) Negative (Negative) 07/07/24 05:18 RSV (PCR) Negative (Negative) 07/07/24 05:18 All radiology interpretation(s) finalized by discharge Discharge Plan Discharge Patient Disposition: Home Clinical Impression: Wedge compression fracture of fourth lumbar vertebra Qualifiers: Encounter type: initial encounter Fracture type: closed Qualified Code(s): S32.040A - Wedge compression fracture of fourth lumbar vertebra, initial encounter for closed fracture Condition: Stable Prescriptions: New Medrol (Ron) 4 mg tablets,dose pack See Rx Instructions .ROUTE .COMPLEX Qty: 21 0RF Rx Instructions: orally per package directions hydromorphone 2 mg tablet 2 mg PO Q6H PRN (Reason: pain) Qty: 7 0RF Discontinued oxycodone 10 mg tablet 10 mg PO Q8H PRN (Reason: pain) 7 Days Qty: 21 0RF No Action oxycodone 10 mg tablet 10 mg PO Q4H PRN (Reason: pain) 10 Days Qty: 40 0RF lidocaine [Tridacaine] 5 % adhesive patch,medicated 3 patch topical DAILY Qty: 30 0RF Rx Instructions: leave on most painful area for up to 12 hrs clopidogrel 75 mg tablet 75 mg PO DAILY Jakafi 10 mg tablet 10 mg PO BID furosemide 20 mg tablet 40 mg PO DAILY PRN omeprazole 40 mg capsule,delayed release(DR/EC) 40 mg PO DAILY PRN meloxicam 15 mg tablet 15 mg PO DAILY PRN multivitamin Tablet 1 tab PO DAILY Papaya Enzyme Tablet 1 tab PO TID Rx Instructions: administer with meals ketoconazole 2 % shampoo 1 applic topical Q14D PRN Galzin 50 mg (zinc) capsule 30 mg PO DAILY Glucosamine-Chondroitin Complx Capsule PO BID acetaminophen [Tylenol Extra Strength] 500 mg tablet 500 mg PO Q6H PRN calcium carbonate 600 mg calcium (1,500 mg) tablet 1,200 mg PO BID calcium carbonate [Tums] 200 mg calcium (500 mg) tablet,chewable 200 mg PO BID PRN ibuprofen 200 mg tablet 200 mg PO Q6H PRN docusate sodium [Colace] 100 mg capsule 100 mg PO DAILY PRN magnesium 250 mg tablet 500 mg PO DAILY clobetasol 0.05 % solution 1 applic topical DAILY loratadine [Allergy Relief (loratadine)] 10 mg tablet 10 mg PO DAILY cranberry 500 mg capsule 2,000 mg PO DAILY Rx Instructions: administer with meals vitamin B complex Capsule 1 cap PO DAILY cholecalciferol (vitamin D3) 50 mcg (2,000 unit) capsule 50 mcg PO DAILY turmeric 400 mg capsule 800 mg PO DAILY Folic Acid Vitamin B9 1,000 mg PO DAILY Iron 36 mg plus VC PO DAILY Rx Instructions: with 4 oz prune juice avmacol with myrosimax PO Rx Instructions: daily with meal sulfamethoxazole-trimethoprim [Bactrim DS] 800-160 mg tablet 1 tab PO BID 7 Days Qty: 14 0RF oxybutynin chloride 5 mg tablet extended release 24hr See Rx Instructions .ROUTE .COMPLEX Qty: 90 0RF Dose Instruction: TAKE 1 TABLET BY MOUTH DAILY Rx Instructions: TAKE 1 TABLET BY MOUTH DAILY Discharge Orders: Discharge ED (Routine); Ordered 07/07/24 Ordered By: Jose Ramon Rea Referrals: Sandra Platt MD [Primary Care Provider] - 1-3 days Patient Instructions: Vertebral Compression Fracture (ED), Opioid Safety, Pain Management Activity Restrictions/Additional Instructions: Take medications as directed. They will help with pain. Attend your MRI later this morning. See your doctor this week. Return for any problems, especially continued fevers. 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
[2024-07-07 04:01] VITALS: BP 133/96; PULSE 81; O2SAT 95
[2024-07-07] MEDS: morphine 4 mg/mL SDV 1 mL IVP (04:17)
[2024-07-07] MEDS: dexamethasone 4 mg/mL INJ 8 MG IVP (04:18)
[2024-07-07] MEDS: ketorolac 30 mg/mL INJ 15 MG IVP (04:18)
[2024-07-07 04:30] LABS: Basophils % 0.1 %; Eosinophils # 0.8 10^3/uL (0.0-0.8); Eosinophils % 5.5 %; Hematocrit 30.1 % (36-47); Lymphocytes % 13.7 %; Mean Corpuscular HGB Conc 32.2 g/dL (30-55); Mean Corpuscular Volume 99.3 fl (85-98); Mean Platelet Volume 10.8 fL (7.4-10.4); Monocytes # 5.4 10^3/uL (0.2-0.9); Monocytes % 36.5 %; Neutrophils # 6.31 10^3/uL (1.8-7.7); Neutrophils % 42.8 %; Nucleated Red Blood Cells % 0 %; Platelet Count 461 10^3/cmm (157-399); Red Blood Count 3.03 10^6/uL (3.85-5.65); Red Cell Distribution Width 15.1 % (12.1-15.1); White Blood Count 14.78 10^3/uL (3.29-11.43)
[2024-07-07 04:44] LABS: Alanine Aminotransferase 12 U/L (0-33); Albumin Level 4.2 g/dL (3.5-5.2); Alkaline Phosphatase 174 U/L (35-105); Anion Gap 14.6 (5-19); Aspartate Amino Transferase 17 U/L (0-32); Blood Urea Nitrogen 14 mg/dL (8-23); C Reactive Protein 29.6 mg/L (0.0-4.9); Calcium 9.4 mg/dL (8.5-10.5); Carbon Dioxide 27 mmol/L (22-29); Chloride 103 mmol/L (98-107); Creatinine Clr Calc Pharmacy 46.5552; Globulin 3.4 g/dL (1.3-4.6); Glucose 106 mg/dL (65-115); Lactic Sepsis W/Reflex 0.9 mmol/L (0.5-2.2); Osmolality Calculated 293 mOsm/kg (285-295); Potassium 3.6 mmol/L (3.5-5.1); Sodium 141 mmol/L (136-145); Total Bilirubin 0.4 mg/dL (0.15-1.2); Total Protein 7.6 g/dL (6.6-8.7)
[2024-07-07 05:00] VITALS: TEMP 38.1
--- NOTE | 2024-07-07 05:09 | XRR_ITS ---
PROCEDURE INFORMATION: Exam: XR Chest Exam date and time: 07/07/2024 5:12 AM Age: 78 years old Clinical indication: Abnormal findings; Abnormal diagnostic tests; Abnormal ekg; Patient HX: Low grade fever with elevated wbc. History of leukemia. ; Additional info: Fever unknown origin TECHNIQUE: Imaging protocol: Radiologic exam of the chest. Views: 1 view. COMPARISON: CR XR chest 1V portable [id number] 04/07/2024 6:20 PM FINDINGS: Lungs: Mild hypoventilatory changes at the lung bases. Pleural spaces: Unremarkable. No pleural effusion. No pneumothorax. Heart/Mediastinum: Unremarkable. No cardiomegaly. Bones/joints: Unremarkable. XR/XR chest 1V portable [id number] IMPRESSION: No acute findings.
[2024-07-07 05:30] VITALS: BP 146/67; RESP 17; O2SAT 93
[2024-07-07 05:39] LABS: Bilirubin Urine Neg (Negative); Blood Urine Neg (Negative); Glucose Urine UA Norm (Normal); Ketones Urine Negative (Negative); Leukocyte Esterase Urine Negative (Negative); Nitrate Urine Negative (Negative); Protein Urine Neg (Negative); Specific Gravity, Urine 1.015 (1.005-1.030); Urine Appearance Cloudy (CLEAR); Urine Color Yellow (Yellow); Urobilinogen Urine Norm (Negative); pH Urine 7 (5-7)
[2024-07-07 05:40] LABS: Add Urine Microscopic? YES; Bacteria Urine 2+ /hpf; UA Manual Slide Review YES; UA Slide Review UA Slide Review Perf
[2024-07-07] MEDS: cefTRIAXone 1,000 mg SDV 1000 MG IVP (05:42)
[2024-07-07] MEDS: HYDROmorphone 1 mg/mL INJ 1 mL 0.5 MG IVP (05:42)
[2024-07-07 06:19] LABS: Covid PCR NEGATIVE (Negative); Influenza A NEGATIVE (Negative); Influenza B NEGATIVE (Negative); Respiratory Syncytial Virus Ce NEGATIVE (Negative)
[2024-07-07 07:39] VITALS: BP 169/88; PULSE 74; RESP 17; O2SAT 92
[2024-07-08 16:08] LABS: Basophils % 0.1 %; Eosinophils # 0.4 10^3/uL (0.0-0.8); Eosinophils % 2.5 %; Lymphocytes # 1.9 10^3/uL (0.8-4.8); Mean Corpuscular HGB Conc 32.3 g/dL (30-55); Mean Corpuscular Hemoglobin 32.2 pg (27-33); Mean Corpuscular Volume 99.7 fl (85-98); Mean Platelet Volume 10.9 fL (7.4-10.4); Monocytes # 2.6 10^3/uL (0.2-0.9); Monocytes % 16.6 %; Neutrophils # 10.58 10^3/uL (1.8-7.7); Neutrophils % 67.1 %; Nucleated Red Blood Cells % 0 %; Platelet Count 484 10^3/cmm (157-399); Red Blood Count 3.01 10^6/uL (3.85-5.65); Red Cell Distribution Width 14.9 % (12.1-15.1); White Blood Count 15.78 10^3/uL (3.29-11.43)
[2024-07-08 16:46] LABS: Alanine Aminotransferase 14 U/L (0-33); Albumin Level 4.5 g/dL (3.5-5.2); Alkaline Phosphatase 161 U/L (35-105); Anion Gap 18.2 (5-19); Aspartate Amino Transferase 14 U/L (0-32); Blood Urea Nitrogen 22 mg/dL (8-23); Calcium 9.4 mg/dL (8.5-10.5); Carbon Dioxide 24 mmol/L (22-29); Chloride 104 mmol/L (98-107); Creatinine Clr Calc Pharmacy 52.3746; Globulin 3.1 g/dL (1.3-4.6); Glucose 122 mg/dL (65-115); Osmolality Calculated 299 mOsm/kg (285-295); Potassium 4.2 mmol/L (3.5-5.1); Sodium 142 mmol/L (136-145); Total Bilirubin 0.4 mg/dL (0.15-1.2); Total Protein 7.6 g/dL (6.6-8.7)
[2024-07-08 16:49] LABS: Bilirubin Urine Neg (Negative); Blood Urine Neg (Negative); Glucose Urine UA Norm (Normal); Ketones Urine Negative (Negative); Leukocyte Esterase Urine Trace (Negative); Nitrate Urine Negative (Negative); Protein Urine Trace (Negative); Urine Appearance Slightly Cloudy (CLEAR); Urine Color Yellow (Yellow); Urobilinogen Urine Norm (Negative); pH Urine 6.5 (5-7)
[2024-07-08 16:50] LABS: Add Urine Microscopic? YES; Amorphous Sediment Urine TRACE /hpf; Bacteria Urine 1+ /hpf; Squamous Epithelial Cell Urine 0-4 /hpf (0-5); WBC Urine 0-4 /hpf (0-5)
== END 2024-07-07 07:41 | disposition home or self-care (01) ==
PROVIDERS: Orthopaedic Surgery; Emergency Provider Emergency Medicine; PCP Family Medicine
DX: S32.040A Wedge compression fracture of fourth lumbar vertebra, initial encounter for closed fracture (principal); Z79.02 Long term (current) use of antithrombotics/antiplatelets; X58.XXXA Exposure to other specified factors, initial encounter
CPT/HCPCS: 0241U; 51702; 71045; 80053; 81001; 83605; 85025; 86140; 96374; 96375; 99284; J0696; J1100; J1170; J1885; J2270

== ENCOUNTER 2024-07-07 07:43 | Outpatient (CLI) | payer MEDICARE, OTHER, SELFPAY ==
--- NOTE | 2024-07-07 07:15 | MR_ITS ---
WS: [id number] MRI LUMBAR SPINE NONCONTRAST TECHNIQUE: Sagittal T1, T2 and STIR imaging. Axial T1 and T2 imaging. CLINICAL INFORMATION: back pain COMPARISON: None. FINDINGS: Mild lumbar curve. Recent appearing compression L4 superior endplate with associated edema. Loss of 2 0% vertebral body height. Hemangioma L5 vertebral body. L1-L2: Mild disc bulging. Slight effacement of the ventral thecal sac. Mild facet arthropathy. L2-L3: Mild annular bulging. Narrowing of the LEFT subarticular recess. Mild facet arthropathy. Spina l canal and foramen are patent. L3-L4: Moderate to severe central canal stenosis due to disc bulge and facet arthropathy with ligamen lauren flavum hypertrophy. Mild LEFT no significant RIGHT foraminal narrowing. Facet edema. L4-L5: Severe central canal stenosis. Advanced arthropathy with small facet effusions. Mild LEFT and no significant RIGHT foraminal narrowing. L5-S1: Shallow central protrusion. Slight effacement of the ventral thecal sac with impingement of tr aversing S1 nerve roots. Mild to moderate RIGHT foraminal narrowing. LEFT foramen is patent. Moderate facet arthropathy. Partially visualized edema in the sacral ala and S2 sacral segment suspicious for insufficiency fract ures. This could be further evaluated with MRI sacrum. Small amount of presacral edema. MR/MR lumbar spine wo con* [id number] IMPRESSION: 1. Mild lumbar curve. Mild compression superior endplate L4 with edema compati ble with recent compression. Loss of approximately 20% vertebral body height. 2. Chronic appearing moderate to severe central canal stenosis L3-4 due to dis c bulging with facet arthropathy and ligamentum flavum hypertrophy. 3. Grade 1 anterolisthesis L4 on L5 with severe central canal stenosis with fa cet arthropathy and ligamentum flavum hypertrophy. 4. Moderate to advanced facet arthropathy L3-L4 L4-L5 and L5-S1. This is worse at L3-L4 and L4-L5 with facet synovitis. 5. Partially visualized edema in the sacral ala and S2 sacral segment suspicio us for insufficiency fractures. This could be further evaluated with MRI sacrum
== END 2024-07-07 07:44 | disposition home or self-care (01) ==
LOC: RAD 07:43
PROVIDERS: PCP Family Medicine; Visit Provider Orthopaedic Surgery
DX: M51.36 Other intervertebral disc degeneration, lumbar region (principal); M47.896 Other spondylosis, lumbar region; M43.16 Spondylolisthesis, lumbar region; M65.9 Synovitis and tenosynovitis, unspecified; M47.816 Spondylosis without myelopathy or radiculopathy, lumbar region; M48.061 Spinal stenosis, lumbar region without neurogenic claudication; D18.09 Hemangioma of other sites; M48.07 Spinal stenosis, lumbosacral region; M47.817 Spondylosis without myelopathy or radiculopathy, lumbosacral region; M51.27 Other intervertebral disc displacement, lumbosacral region
CPT/HCPCS: 72148; 99204

== ENCOUNTER → 2024-07-08 13:56 | Outpatient (BNVA) | payer MEDICARE, OTHER, SELFPAY | PROVIDERS: PCP Family Medicine; Visit Provider Orthopaedic Surgery | DX: S32.040A Wedge compression fracture of fourth lumbar vertebra, initial encounter for closed fracture (principal); X58.XXXA Exposure to other specified factors, initial encounter | CPT/HCPCS: 99214 ==

== ENCOUNTER 2024-07-11 10:29 | Day surgery (SDC) | payer MEDICARE, OTHER, SELFPAY ==
[2024-07-11] VITALS (10 sets, daily range): BP systolic 111–172; BP diastolic 43–65; PULSE 70–78; RESP 10–19; TEMP 36.6–36.9; O2SAT 92–100
--- NOTE | 2024-07-11 11:37 | W.PM.OPSUD ---
Surgery/Procedure H&P Update DATE OF PROCEDURE: July 11, 2024 DATE H&P PERFORMED: 07/09/24 H&P UPDATE INFORMATION: I have reviewed H&P completed within last 30 days, I have examined patient prior to procedure and No changes to prior documentation PREOP DIAGNOSIS: L4 compression fracture; lumbar stenosis with neurogenic claudication PLANNED PROCEDURE: Operation Date: 07/11/24 12:10 Proposed Procedures p Kyphoplasty(Not Applicable) - Kwadwo Olivas DO s Lumbar Spine Decompression Lumbar Decompression(Not Applicable) - Kwadwo Olivas DO
[2024-07-11 11:40] LABS: Add Urine Microscopic? YES; Bilirubin Urine Neg (Negative); Blood Urine Neg (Negative); Glucose Urine UA Norm (Normal); Ketones Urine Negative (Negative); Leukocyte Esterase Urine Negative (Negative); Nitrate Urine Negative (Negative); Protein Urine Neg (Negative); Specific Gravity, Urine 1.015 (1.005-1.030); UA Manual Slide Review YES; UA Slide Review UA Slide Review Perf; Urine Appearance Cloudy (CLEAR); Urine Color Yellow (Yellow); Urobilinogen Urine Norm (Negative); pH Urine 8 (5-7)
[2024-07-11] MEDS: sodium chloride 0.9% 1,000 ML 30 ML IV (11:41)
[2024-07-11 11:42] LABS: Add Urine Culture? No; Amorphous Sediment Urine 2+ /hpf
--- NOTE | 2024-07-11 11:45 | ANES.PREANE2 ---
Pre-Anesthetic Assessment Height/Weight: Height 5 ft 2 in Weight 155 lb Temp Pulse Resp BP Pulse Ox O2 Del Method 98.0 F 77 18 172/55 95 Room Air 07/11/24 11:07/11/24 11:07/11/24 11:07/11/24 11:07/11/24 11:07/11/24 11:10 Preop Diagnosis: L4 compression fracture; lumbar stenosis with neurogenic claudication Operation Date: 07/11/24 12:10 Proposed Procedures p Kyphoplasty(Not Applicable) - Kwadwo Olivas DO s Lumbar Spine Decompression Lumbar Decompression(Not Applicable) - Kwadwo Olivas DO Last intake: Intake Last Liquid Date 07/10/24 Last Liquid Time 23:00 Last Solid Date 07/10/24 Last Solid Time 18:00 Anesthetic Plan ASA status: 3 Anesthesia: General Other: No prior issues with anesthesia NPO since midnight Chronic Plavix use last taken 07/07 Patient denies any pulmonary or cardiac issues GERD on omeprazole Was taking chronic oxycodone 10 mg every 4 hours but stopped yesterday because was making her feel very loopy Labs reviewed, UA clear EKG showing sinus rhythm METS greater than 4 Plan for GETA Medications/Allergies Home Medications Medication Instructions Recorded Confirmed Last Taken Type clopidogrel 75 mg tablet 75 mg PO DAILY 10/25/23 07/11/24 07/07/24 History furosemide 20 mg tablet 40 mg PO DAILY PRN water 10/25/23 07/11/24 07/10/24 History omeprazole 40 mg capsule,delayed 40 mg PO DAILY PRN Heartburn 10/25/23 07/11/24 07/10/24 History release ruxolitinib 10 mg tablet (Jakafi) 10 mg PO BID 10/25/23 07/11/24 07/10/24 History Folic Acid Vitamin B9 1,000 mg PO DAILY 03/10/24 07/11/24 07/10/24 History Iron 36 mg plus VC 36 mg PO DAILY 03/10/24 07/11/24 07/10/24 History acetaminophen 500 mg tablet 500 mg PO Q6H PRN Pain 03/10/24 07/11/24 07/10/24 History (Tylenol Extra Strength) avmacol with myrosimax 1 tab PO DAILY 03/10/24 07/11/24 07/10/24 History calcium carbonate 1,200 mg PO BID 03/10/24 07/11/24 07/10/24 History carica papaya (Papaya Enzyme 1 tab PO TID 03/10/24 07/11/24 07/10/24 History tablet) cholecalciferol (vitamin D3) 50 50 mcg PO DAILY 03/10/24 07/11/24 07/10/24 History mcg (2,000 unit) capsule clobetasol 0.05 % scalp solution 1 applic topical DAILY 03/10/24 07/11/24 07/10/24 History cranberry 500 mg capsule 2,000 mg PO DAILY 03/10/24 07/11/24 07/10/24 History docusate sodium 100 mg capsule 100 mg PO DAILY PRN Constipation 03/10/24 07/11/24 07/10/24 History (Colace) [id number] C-Mn 1 cap PO BID 03/10/24 07/11/24 07/10/24 History capsule (Glucosamine-Chondroitin Complex capsule) ibuprofen 200 mg tablet 200 mg PO Q6H PRN Pain 03/10/24 07/11/24 07/10/24 History ketoconazole 2 % shampoo 1 applic topical Q14D PRN Itching 03/10/24 07/11/24 07/10/24 History loratadine 10 mg tablet (Allergy 10 mg PO DAILY 03/10/24 07/11/24 07/10/24 History Relief (loratadine)) magnesium 250 mg tablet 500 mg PO DAILY 03/10/24 07/11/24 07/10/24 History meloxicam 15 mg tablet 15 mg PO DAILY PRN Pain 03/10/24 07/11/24 07/10/24 History multivitamin 1 tab PO DAILY 03/10/24 07/11/24 07/10/24 History turmeric 400 mg capsule 800 mg PO DAILY 03/10/24 07/11/24 07/10/24 History vitamin B complex 1 cap PO DAILY 03/10/24 07/11/24 07/10/24 History zinc acetate 50 mg (zinc) capsule 30 mg PO DAILY 03/10/24 07/11/24 07/10/24 History (Galzin) sulfamethoxazole 800 1 tab PO BID 7 days #14 tabs 04/03/24 07/11/24 07/10/24 Rx mg-trimethoprim 160 mg tablet (Bactrim DS) oxycodone 10 mg tablet 10 mg PO Q4H PRN pain 10 days #40 07/03/24 07/11/24 07/10/24 Rx tabs methylprednisolone 4 mg tablets in See Rx Instructions PO .COMPLEX 07/07/24 07/11/24 07/10/24 Rx a dose pack (Medrol (Ron)) #21 ea oxybutynin chloride 5 mg 5 mg PO DAILY 07/10/24 07/11/24 07/10/24 History tablet,extended release 24 hr ruxolitinib 10 mg tablet (Jakafi) 10 mg PO DAILY 07/11/24 07/11/24 07/11/24 07:00 History Allergies Allergy/AdvReac Type Severity Reaction Status Date / Time Tetanus Vaccines and Toxoid Allergy Unknown Verified 07/09/24 13:56 Predisone Allergy Intermediate confusion Uncoded 07/09/24 13:56 Current Medications Generic Name Dose Route Start Last Admin Trade Name Freq PRN Reason Stop Dose Admin Sodium Chloride 1,000 mls @ 30 mls/hr 07/11/24 10:45 07/11/24 11:41 Sodium Chloride 0.9% IV 07/12/24 10:44 30 mls/hr .Q24H ASCENCION Administration PFSH Anesthesia Family History Mother Diabetes Hypertension Sister CAD (coronary artery disease) Heart disease Hypertension Diabetes Father Lymphoma Brother Hypertension Denies family history of Colon cancer Ovarian cancer Hyperlipidemia Breast cancer Uterine cancer Thyroid disease Stroke Social History Smoking and tobacco/nicotine status: never used tobacco/nicotine Alcohol intake: never Substance/Drug Use: never Household members: spouse Marital status: Marital status details: 18 Number of children: 4 Current 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 status: retired [employer]: [employer] Anesthesia Urine 07/11/24 Range/Units 10:50 Urine Color Yellow (Yellow) Urine Appearance Cloudy A (CLEAR) Urine pH 8 A (5-7) Ur Specific [place] 1.015 (1.005-1.030) Urine Protein Neg (Negative) Urine Glucose (UA) Norm (Normal) Urine Ketones Negative (Negative) Urine Nitrate Negative (Negative) Urine Bilirubin Neg (Negative) Ur Leukocyte Esterase Negative (Negative) Urine RBC None (0-2) /hpf Urine WBC None (0-5) /hpf Cardiac Studies: No Data to Display
[2024-07-11] MEDS: ceFAZolin 2,000 mg SDV 2000 MG IVP (12:12)
[2024-07-11] MEDS: lidocaine-epi 1% 20 mL INJ 10 ML INJECTION (13:14)
--- NOTE | 2024-07-11 13:55 | XR_ITS ---
WS: [id number] Lumbar spine, C-arm fluoroscopy views, 07/11/2024 Clinical Data: OR PICS Comparison: Lumbar spine, 07/03/2024 Findings: Dr. Olivas performed a lumbar decompression XR/XR lumbar spine 2-3V* [id number] Impression: Lumbar decompression.
--- NOTE | 2024-07-11 14:02 | PM.OP ---
Operative Report Date of procedure: July 11, 2024 Pre-op diagnosis: 1. L4 wedge osteoporotic traumatic compression fracture 2. Lumbar stenosis with neurogenic claudication Post-op diagnosis: same Procedure done: 1. L4 kyphoplasty 2. L3-4 laminectomy with partial facetectomy 3. L4-5 laminectomy with partial facetectomy Surgeon: Kwadwo Olivas DO Estimated blood loss (mL): 25 Procedure: 1. L4 kyphoplasty 2. L3-4 laminectomy with partial facetectomy 3. L4-5 laminectomy with partial facetectomy Patient brought the op suite after needle anesthesia patient was placed in the prone position. All his impingement well-padded patient's prepped draped in also fashion. C-arm was brought into identify the L4 level. Skin incision is made on the lateral left pedicle. The awl was inserted first followed by the drill followed by the balloon. The balloon was inflated and deflated and pulled out. Cement was then injected spread across the entire vertebral endplate wounds were irrigated and closed with nylon suture. Patient is then re - prepped and draped in the normal sterile fashion. A skin incision is made over the L3-4 level. This is confirmed under c-arm guidance. A series of dilators are passed and the tubular retractor is docked on the L3 lamina. A bovie is used to clear the soft tissue off the lamina and the L 3/4 facet joint. A high speed nichole is then used to perform the laminectomy and take down the medial aspect of the L 3/4 facet joint. A kerrison rongeure was then used to take down the remaining lamina and smooth the edge of the laminectomy up to the point where the ligamentum flavum attaches. Attention was then brought to the medial aspect of the facet joint. The remaining medial aspect of the superior and inferior aspect of the facet joint were taken down with the kerrison from the pedicle of L3 to L 4. The facet joint had significant hypertrophy. Attention was then brought to the Ligamentum Flavum. The ligament was taken down from the lamina of L3 to L4 and out medially to the remaining facet joint. The ligament was extremely thick. The dura was then exposed. The dura was in good repair. The L3 nerve was then traced with a curette out the L3/4 foramen and found to be adequately decompressed. The L4 nerve was traced with a curette around the L4 pedicle. The lateral recess was opened with a kerrison helping to further decompress the L4 nerve. Wound is then irrigated copiously with saline and surgiflo is used to stop any bleeding. The tubular retractor is removed A skin incision is made over the L4/5 level. This is confirmed under c-arm guidance. A series of dilators are passed and the tubular retractor is docked on the L4 lamina. A bovie is used to clear the soft tissue off the lamina and the L 4/5 facet joint. A high speed nichole is then used to perform the laminectomy and take down the medial aspect of the L 4/5 facet joint. A kerrison rongeure was then used to take down the remaining lamina and smooth the edge of the laminectomy up to the point where the ligamentum flavum attaches. Attention was then brought to the medial aspect of the facet joint. The remaining medial aspect of the superior and inferior aspect of the facet joint were taken down with the kerrison from the pedicle of L4 to L 5. The facet joint had significant hypertrophy. Attention was then brought to the Ligamentum Flavum. The ligament was taken down from the lamina of L4 to L5 and out medially to the remaining facet joint. The ligament was thick. The dura was then exposed. A small dural tear occurred when I decompressed distal to the pedicle medially. A patch was placed along with a DuraGen seal. The L4 nerve was then traced with a curette out the L4/5 foramen and found to be adequately decompressed. The L5 nerve was traced with a curette around the L5 pedicle. The lateral recess was opened with a kerrison helping to further decompress the L5 nerve. Wound is then irrigated copiously with saline and surgiflo is used to stop any bleeding. The tubular retractor is removed and the wound is closed with vicryl and monocryl suture. Glue is then used to protect the wound. A sterile dressing is then placed. Patient was then placed in the supine position and transferred to the PACU in stable condition.
--- NOTE | 2024-07-11 15:41 | ANE.PACU2 ---
Inpatient post-anesthesia follow up: Airway intact: Yes Vital signs: Temperature 97.9 F Pulse Rate 78 Respiratory Rate 16 Blood Pressure 139/65 Pulse Oximetry 92 Oxygen Delivery Me thod Room Air Oxygen Flow Rate 6 Fraction of Inspir ed Oxygen Hydration adequate: Yes Nausea and vomiting: No Pain level: 1 Mental status: Baseline
== END 2024-07-11 15:41 | disposition home or self-care (01) ==
PROVIDERS: PCP Family Medicine; Visit Provider Orthopaedic Surgery
PROC: (CPT 22514; principal; 2024-07-11 12:10)
PROC: (CPT 63005; 2024-07-11 12:10)
DX: S32.040A Wedge compression fracture of fourth lumbar vertebra, initial encounter for closed fracture (principal); X58.XXXA Exposure to other specified factors, initial encounter; M48.062 Spinal stenosis, lumbar region with neurogenic claudication; Z79.02 Long term (current) use of antithrombotics/antiplatelets; K21.9 Gastro-esophageal reflux disease without esophagitis; Z79.891 Long term (current) use of opiate analgesic
CPT/HCPCS: 22514; 63047; 63048; 72100; 76000; 81001; J0690; J1100; J1200; J2405; J2704; J3010; J3490; J7030

== ENCOUNTER 2024-07-12 18:22 | Inpatient (IN) | payer MEDICARE, OTHER, SELFPAY ==
[2024-07-12] VITALS (8 sets, daily range): BP systolic 132–165; BP diastolic 63–86; PULSE 79–94; RESP 16–20; TEMP 36.9; O2SAT 90–97; BMI 28.3
--- NOTE | 2024-07-12 18:28 | W.ED.BACK ---
HPI - Back Pain/Injury General: Chief Complaint: Back Pain/Injury Stated Complaint: back pain s/p surgery Time Seen by Provider: 07/12/24 18:24 Source: patient Mode of arrival: ambulatory Limitations: no limitations History of Present Illness: Patient is an 79-year-old female who presents to the ED today along with her for evaluation of back pain. Patient underwent L4 kyphoplasty, L3-4 laminectomy with partial facetectomy, and L4-5 laminectomy with partial facetectomy by Dr. Olivas yesterday. She states she is having uncontrollable pain. She is taking tramadol at home without relief of her discomfort. Patient states she cannot walk secondary to pain. No fevers. MD elicited complaint: back pain Pertinent past history: back surgery Onset (ago): day(s) (yesterday) Timing: constant Severity: severe Pain scale (0-10): 10 Location: lumbar spine Radiation: none Exacerbating factors: movement Relieving factors: none Context: other (surgery yesterday) Associated symptoms: Reports difficulty walking (secondary to back pain); Deny abdominal pain, chills, dysuria, fatigue, fever(s) or hematuria Work related injury: No Related Data Home Medications Medication Instructions Recorded Confirmed clopidogrel 75 mg tablet 75 mg PO DAILY 10/25/23 07/11/24 furosemide 20 mg tablet 40 mg PO DAILY PRN water 10/25/23 07/11/24 omeprazole 40 mg capsule,delayed 40 mg PO DAILY PRN Heartburn 10/25/23 07/11/24 release ruxolitinib 10 mg tablet (Jakafi) 10 mg PO BID 10/25/23 07/11/24 Folic Acid Vitamin B9 1,000 mg PO DAILY 03/10/24 07/11/24 Iron 36 mg plus VC 36 mg PO DAILY 03/10/24 07/11/24 acetaminophen 500 mg tablet 500 mg PO Q6H PRN Pain 03/10/24 07/11/24 (Tylenol Extra Strength) avmacol with myrosimax 1 tab PO DAILY 03/10/24 07/11/24 calcium carbonate 1,200 mg PO BID 03/10/24 07/11/24 carica papaya (Papaya Enzyme 1 tab PO TID 03/10/24 07/11/24 tablet) cholecalciferol (vitamin D3) 50 50 mcg PO DAILY 03/10/24 07/11/24 mcg (2,000 unit) capsule clobetasol 0.05 % scalp solution 1 applic topical DAILY 03/10/24 07/11/24 cranberry 500 mg capsule 2,000 mg PO DAILY 03/10/24 07/11/24 docusate sodium 100 mg capsule 100 mg PO DAILY PRN Constipation 03/10/24 07/11/24 (Colace) owrceuwpefs-xuncqxhyp-dys C-Mn 1 cap PO BID 03/10/24 07/11/24 capsule (Glucosamine-Chondroitin Complex capsule) ibuprofen 200 mg tablet 200 mg PO Q6H PRN Pain 03/10/24 07/11/24 ketoconazole 2 % shampoo 1 applic topical Q14D PRN Itching 03/10/24 07/11/24 loratadine 10 mg tablet (Allergy 10 mg PO DAILY 03/10/24 07/11/24 Relief (loratadine)) magnesium 250 mg tablet 500 mg PO DAILY 03/10/24 07/11/24 meloxicam 15 mg tablet 15 mg PO DAILY PRN Pain 03/10/24 07/11/24 multivitamin 1 tab PO DAILY 03/10/24 07/11/24 turmeric 400 mg capsule 800 mg PO DAILY 03/10/24 07/11/24 vitamin B complex 1 cap PO DAILY 03/10/24 07/11/24 zinc acetate 50 mg (zinc) capsule 30 mg PO DAILY 03/10/24 07/11/24 (Galzin) oxybutynin chloride 5 mg 5 mg PO DAILY 07/10/24 07/11/24 tablet,extended release 24 hr ruxolitinib 10 mg tablet (Jakafi) 10 mg PO DAILY 07/11/24 07/11/24 Previous Rx's Medication Instructions Recorded sulfamethoxazole 800 1 tab PO BID 7 days #14 tabs 04/03/24 mg-trimethoprim 160 mg tablet (Bactrim DS) methylprednisolone 4 mg tablets in See Rx Instructions PO .COMPLEX 07/07/24 a dose pack (Medrol (Ron)) #21 ea tramadol 50 mg tablet 50 mg PO Q4H PRN pain 7 days #40 07/11/24 tabs Allergies Allergy/AdvReac Type Severity Reaction Status Date / Time Tetanus Vaccines and Toxoid Allergy Unknown Verified 07/12/24 18:36 Predisone Allergy Intermediate confusion Uncoded 07/12/24 18:36 Review of Systems Const: Denies: fever(s), chills, body aches, fatigue or malaise Card: Denies: chest pain Resp: Denies: dyspnea GI: Denies: abdominal pain : Denies: flank pain, dysuria or hematuria Musc: Reports: back pain; Denies: neck pain, extremity pain, extremity swelling, joint pain or joint swelling Skin/Breast: Denies: rash Neuro: Reports: difficulty walking (secondary to back pain); Denies: headache(s), numbness in extremities, weakness in extremities or sensory changes PFSH ED PFSH: Medical History (Updated 07/13/24 @ 00:15 by OSVALDO Case) History of chronic myeloid leukemia FH: total knee replacement Surgical History (Updated 07/12/24 @ 23:01 by Navarro Barahona MD) H/O tubal ligation History of appendectomy 1965 Family History Mother Diabetes Hypertension Sister CAD (coronary artery disease) Heart disease Hypertension Diabetes Father Lymphoma Brother Hypertension Denies family history of Colon cancer Ovarian cancer Hyperlipidemia Breast cancer Uterine cancer Thyroid disease Stroke Social History Smoking and tobacco/nicotine status: never used tobacco/nicotine Alcohol intake: never Substance/Drug Use: never Household members: spouse Marital status: Marital status details: 18 Number of children: 4 Current 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 status: retired Pam/Religious: Buddhism Physical Exam Const: COMMON NORMALS: average body habitus, patient oriented x3, no limitations, alert and well nourished GENERAL APPEARANCE: cooperative and in distress (uncomfortable secondary to back pain) Resp: COMMON NORMALS: normal respiratory effort and clear to auscultation bilaterally AUSCULTATION: clear to auscultation bilaterally Cardio: COMMON NORMALS: regular rate and regular rhythm RATE: regular rate RHYTHM: regular rhythm GI: COMMON NORMALS: Normal to inspection, nondistended, normoactive bowel sounds present, Soft to palpation and non-tender PALPATION: Yes Soft to palpation : COMMON NORMALS: Yes no CVA tenderness BLADDER/KIDNEY EXAM: Yes no CVA tenderness Back/Pelvis: COMMON NORMALS: no CVA tenderness LUMBAR SPINE/LOWER BACK: Yes lumbar spinal tenderness PELVIS: Yes buttocks normal SACRUM: no tenderness COCCYX: no tenderness OTHER: surgical incision is clean/well dressed Extremity: COMMON NORMALS: capillary refill normal and no clubbing, cyanosis or edema GENERAL: Yes normal exam except as noted Neuro: COMMON NORMALS: patient oriented x3, moves all extremities, no focal motor deficits and no sensory deficits noted SENSORIUM/ORIENTATION: Yes alert GAIT: Yes Unable to assess gait Course Consultations: Consultation #1: Dr. Olivas-will admit as primary Consultation #2: Dr. Barahona-will consult on patient; requesting labs/CT imaging Vital Signs: Vital signs: Vital Signs Temperature 98.4 F 07/12/24 18:29 Pulse Rate 74 07/13/24 00:11 Respiratory Rate 16 07/12/24 21:34 Blood Pressure 151/74 07/13/24 00:11 Pulse Oximetry 97 07/13/24 00:11 Oxygen Delivery Me thod Nasal Cannula 07/12/24 20:46 Oxygen Flow Rate 1 07/12/24 20:46 MDM - Back Pain/Injury Medical Decision Making Patient is an 79-year-old female here for severe back pain following a kyphoplasty and partial facetectomies yesterday by Dr. Olivas. She has been given multiple IV medications here and still rating her pain at a 10/10. We have tried to get her up and ambulate her multiple times unsuccessfully. Patient is agitated and demanding to be admitted. Her vital signs are stable. She has required a small amount of oxygen following narcotic pain medications. I spoke to hospitalist Dr. Barahona who is willing to consult on patient but would like patient's surgeon, Dr. Olivas to be the primary admitting physician. Dr. Barahona requesting blood work/CT imaging. This was completed here in the ED. Medical Records I reviewed the patient's medical records. Labs I reviewed the patient's lab results. 07/12/24 19:13 07/12/24 19:13 Radiology Impressions Lumbar Spine CT 07/12/24 21:30 IMPRESSION: 1. Subcutaneous emphysema about the left paraspinal muscle may be postsurgical in nature. 2. L4 vertebral body chronic appearing compression deformity and vertebroplasty changes without retropulsion of bony fragments, similar to prior exam. 3. L3-L4 broad-based disc bulge with mild spinal canal and bilateral foraminal narrowing with left laminectomy changes.Contrast is also seen in the intervertebral disc space. 4. L4-L5 broad-based disc bulge with moderate to severe spinal canal and bilateral foraminal narrowing. 5. L5-S1 broad-based disc bulge and productive degenerative changes with moderate spinal canal and moderate to severe bilateral foraminal narrowing. 6. Subcutaneous edema about the lumbar spine without focal fluid collection. 7. Bilateral sacral chronic insufficiency fractures suspected. Laboratory Results WBC 22.53 10^3/uL (3.29-11.43) H 07/12/24 19:13 RBC 3.24 10^6/uL (3.85-5.65) L 07/12/24 19:13 Hgb 10.20 g/dL (11.27-16.99) L 07/12/24 19:13 Hct 32.4 % (36-47) L 07/12/24 19:13 MCV 100.0 fl (85-98) H 07/12/24 19:13 MCH 31.5 pg (27-33) 07/12/24 19:13 MCHC 31.5 g/dL (30-55) 07/12/24 19:13 RDW 15.0 % (12.1-15.1) 07/12/24 19:13 Plt Count 490 10^3/cmm (157-399) H 07/12/24 19:13 MPV 11.4 fL (7.4-10.4) H 07/12/24 19:13 Neut % (Auto) 54.0 % 07/12/24 19:13 Lymph % (Auto) 10.8 % 07/12/24 19:13 [place] % (Auto) 30.0 % 07/12/24 19:13 Eos % (Auto) 2.7 % 07/12/24 19:13 Baso % (Auto) 0.1 % 07/12/24 19:13 Neut # (Auto) 12.20 10^3/uL (1.8-7.7) H 07/12/24 19:13 Lymph # (Auto) 2.4 10^3/uL (0.8-4.8) 07/12/24 19:13 [place] # (Auto) 6.8 10^3/uL (0.2-0.9) H 07/12/24 19:13 Eos # (Auto) 0.6 10^3/uL (0.0-0.8) 07/12/24 19:13 Baso # (Auto) 0.0 10^3/uL (0.0-0.1) 07/12/24 19:13 Nucleated RBC % (auto) 0 % 07/12/24 19:13 Nucleated RBCs # 0.0 /100WBC 07/12/24 19:13 ESR 17 mm/hr (0-15) H 07/12/24 19:13 PT 18.10 SECONDS (12.1-14.9) H 07/12/24 19:13 INR 1.45 (0.8-1.2) H 07/12/24 19:13 Sodium 134 mmol/L (136-145) L 07/12/24 19:13 Potassium 4.3 mmol/L (3.5-5.1) 07/12/24 19:13 Chloride 102 mmol/L (98-107) 07/12/24 19:13 Carbon Dioxide 20 mmol/L (22-29) L 07/12/24 19:13 Anion Gap 16.3 (5-19) 07/12/24 19:13 BUN 18 mg/dL (8-23) 07/12/24 19:13 Creatinine 0.9 mg/dL (0.5-0.9) 07/12/24 19:13 GFR Calculation Not Reportable 07/12/24 19:13 Glucose 94 mg/dL (65-115) 07/12/24 19:13 Calculated Osmolality 280 mOsm/kg (285-295) L 07/12/24 19:13 Calcium 9.4 mg/dL (8.5-10.5) 07/12/24 19:13 Total Bilirubin 0.5 mg/dL (0.15-1.2) 07/12/24 19:13 AST 14 U/L (0-32) 07/12/24 19:13 ALT 11 U/L (0-33) 07/12/24 19:13 Alkaline Phosphatase 180 U/L (35-105) H 07/12/24 19:13 C-Reactive Protein 62.1 mg/L (0.0-4.9) H 07/12/24 19:13 Total Protein 7.5 g/dL (6.6-8.7) 07/12/24 19:13 Albumin 4.4 g/dL (3.5-5.2) 07/12/24 19:13 Globulin 3.1 g/dL (1.3-4.6) 07/12/24 19:13 Procalcitonin 0.07 ng/mL (0-0.5) 07/12/24 19:13 Urine Color Yellow (Yellow) 07/12/24 22:56 Urine Appearance Clear (CLEAR) 07/12/24 22:56 Urine pH 5.5 (5-7) 07/12/24 22:56 Ur Specific [place] 1.075 (1.005-1.030) H 07/12/24 22:56 Urine Protein Trace (Negative) A 07/12/24 22:56 Urine Glucose (UA) Negative (Normal) 07/12/24 22:56 Urine Ketones Trace (Negative) 07/12/24 22:56 Urine Blood Negative (Negative) 07/12/24 22:56 Urine Nitrate Negative (Negative) 07/12/24 22:56 Urine Bilirubin Negative (Negative) 07/12/24 22:56 Urine Urobilinogen 1.0 mg/dL (Negative) 07/12/24 22:56 Ur Leukocyte Esterase Negative (Negative) 07/12/24 22:56 Urine RBC 0-2 /hpf (0-2) 07/12/24 22:56 Urine WBC 0-5 /hpf (0-5) 07/12/24 22:56 Ur Squamous Epith Cells 6-10 /hpf (0-5) 07/12/24 22:56 Amorphous Sediment Not Reportable 07/12/24 22:56 Urine Bacteria None seen /hpf (NONE) 07/12/24 22:56 Hyaline Casts 9.51 /lpf 07/12/24 22:56 Coarse Granular Casts 0-4 /lpf H 07/12/24 22:56 Urine Mucus Trace /hpf 07/12/24 22:56 All radiology interpretation(s) finalized by discharge Discharge Plan Discharge Patient Disposition: Admitted As Inpatient Clinical Impression: Intractable low back pain, Acute postoperative pain Condition: Stable Prescriptions: No Action clopidogrel 75 mg tablet 75 mg PO DAILY Hold Instructions: Resume on 07/14/24. Jakafi 10 mg tablet 10 mg PO BID furosemide 20 mg tablet 40 mg PO DAILY PRN (Reason: water) omeprazole 40 mg capsule,delayed release(DR/EC) 40 mg PO DAILY PRN (Reason: Heartburn) meloxicam 15 mg tablet 15 mg PO DAILY PRN (Reason: Pain) multivitamin Tablet 1 tab PO DAILY Papaya Enzyme Tablet 1 tab PO TID Rx Instructions: administer with meals ketoconazole 2 % shampoo 1 applic topical Q14D PRN (Reason: Itching) Galzin 50 mg (zinc) capsule 30 mg PO DAILY Glucosamine-Chondroitin Complx Capsule 1 cap PO BID acetaminophen [Tylenol Extra Strength] 500 mg tablet 500 mg PO Q6H PRN (Reason: Pain) calcium carbonate 600 mg calcium (1,500 mg) tablet 1,200 mg PO BID ibuprofen 200 mg tablet 200 mg PO Q6H PRN (Reason: Pain) Hold Instructions: Resume on 07/14/24. docusate sodium [Colace] 100 mg capsule 100 mg PO DAILY PRN (Reason: Constipation) magnesium 250 mg tablet 500 mg PO DAILY clobetasol 0.05 % solution 1 applic topical DAILY loratadine [Allergy Relief (loratadine)] 10 mg tablet 10 mg PO DAILY cranberry 500 mg capsule 2,000 mg PO DAILY Rx Instructions: administer with meals vitamin B complex Capsule 1 cap PO DAILY cholecalciferol (vitamin D3) 50 mcg (2,000 unit) capsule 50 mcg PO DAILY turmeric 400 mg capsule 800 mg PO DAILY Folic Acid Vitamin B9 1,000 mg 1,000 mg PO DAILY Iron 36 mg plus VC 36 mg PO DAILY Rx Instructions: with 4 oz prune juice avmacol with myrosimax 1 tab PO DAILY Rx Instructions: daily with meal sulfamethoxazole-trimethoprim [Bactrim DS] 800-160 mg tablet 1 tab PO BID 7 Days Qty: 14 0RF methylprednisolone [Medrol (Ron)] 4 mg tablets,dose pack See Rx Instructions .ROUTE .COMPLEX Qty: 21 0RF Rx Instructions: orally per package directions oxybutynin chloride 5 mg tablet extended release 24hr 5 mg PO DAILY Rx Instructions: TAKE 1 TABLET BY MOUTH DAILY Jakafi 10 mg tablet 10 mg PO DAILY tramadol 50 mg tablet 50 mg PO Q4H PRN (Reason: pain) 7 Days Qty: 40 0RF Referrals: Sandra Platt MD [Primary Care Provider] - Coding Level of Care Code ED General Surgeon for g Thai
[2024-07-12] MEDS: ketorolac 60 mg/2 mL INJ 15 MG IVP (19:16)
[2024-07-12] MEDS: dexamethasone 10 mg/mL INJ 6 MG IV (19:18)
[2024-07-12] MEDS: morphine 4 mg/mL SDV 1 mL IVP (19:20)
[2024-07-12] MEDS: ondansetron 2 mg/ML SDV 2 mL 4 MG IVP (19:23)
[2024-07-12] MEDS: HYDROmorphone 1 mg/mL INJ 1 mL IVP (20:43)
[2024-07-12] MEDS: orphenadrine 30 mg/mL Inj 2 mL IVP (20:45)
--- NOTE | 2024-07-12 21:30 | CTR_ITS ---
PROCEDURE INFORMATION: Exam: CT Lumbar Spine With Contrast Exam date and time: 07/12/2024 9:43 PM Age: 79 years old Clinical indication: Prior surgery; Surgery date: Post-operative (0-2 days); Surgery type: L4 kyphoplasty with l3-l5 laminectomy/facetectomy. Patient HX: C/O low back pain with bilateral lower ext weakness post l4 kyphoplasty with l3-l5 laminectomy/facetectomy yesterday. History of leukemia. ; Additional info: Recent back surgery; Pain TECHNIQUE: Imaging protocol: Computed tomography of the lumbar spine with contrast. Radiation optimization: All CT scans at this facility use at least one of these dose optimization techniques: automated exposure control; mA and/or kV adjustment per patient size (includes targeted exams where dose is matched to clinical indication); or iterative reconstruction. Contrast material: OMNI 350; Contrast volume: 100 ml; Contrast route: INTRAVENOUS (IV); COMPARISON: MR lumbar spine wo con* [id number] 07/07/2024 7:49 AM RADIATION DOSE METRICS: Total DLP (mGy-cm): 538.73 FINDINGS: Bones/joints: L4 vertebral body chronic appearing compression deformity and vertebroplasty changes without retropulsion of bony fragments, similar to prior exam. Bilateral sacral chronic insufficiency fractures suspected. L1-L2: No significant disc bulge or herniation. No severe spinal canal stenosis. No significant neural foraminal narrowing. L2-L3: No significant disc bulge or herniation. No severe spinal canal stenosis. No significant neural foraminal narrowing. L3-L4: L3-L4 broad-based disc bulge with mild spinal canal and bilateral foraminal narrowing with left laminectomy changes.Contrast is also seen in the intervertebral disc space. L4-L5: L4-L5 broad-based disc bulge with moderate to severe spinal canal and bilateral foraminal narrowing. L5-S1: L5-S1 broad-based disc bulge and productive degenerative changes with moderate spinal canal and moderate to severe bilateral foraminal narrowing. Soft tissues: Subcutaneous emphysema about the left paraspinal muscle may be postsurgical in nature. Subcutaneous edema about the lumbar spine without focal fluid collection. CT/CT lumbar spine w con [id number] IMPRESSION: 1. Subcutaneous emphysema about the left paraspinal muscle may be postsurgical in nature. 2. L4 vertebral body chronic appearing compression deformity and vertebroplasty changes without retropulsion of bony fragments, similar to prior exam. 3. L3-L4 broad-based disc bulge with mild spinal canal and bilateral foraminal narrowing with left laminectomy changes.Contrast is also seen in the intervertebral disc space. 4. L4-L5 broad-based disc bulge with moderate to severe spinal canal and bilateral foraminal narrowing. 5. L5-S1 broad-based disc bulge and productive degenerative changes with moderate spinal canal and moderate to severe bilateral foraminal narrowing. 6. Subcutaneous edema about the lumbar spine without focal fluid collection. 7. Bilateral sacral chronic insufficiency fractures suspected.
[2024-07-12 21:32] LABS: Basophils % 0.1 %; Eosinophils # 0.6 10^3/uL (0.0-0.8); Eosinophils % 2.7 %; Hematocrit 32.4 % (36-47); Lymphocytes # 2.4 10^3/uL (0.8-4.8); Lymphocytes % 10.8 %; Mean Corpuscular HGB Conc 31.5 g/dL (30-55); Mean Corpuscular Hemoglobin 31.5 pg (27-33); Mean Platelet Volume 11.4 fL (7.4-10.4); Monocytes # 6.8 10^3/uL (0.2-0.9); Nucleated Red Blood Cells % 0 %; Platelet Count 490 10^3/cmm (157-399); Red Blood Count 3.24 10^6/uL (3.85-5.65); White Blood Count 22.53 10^3/uL (3.29-11.43)
[2024-07-12 21:36] LABS: Erythrocyte Sedimentation Rate 17 mm/hr (0-15)
[2024-07-12 21:50] LABS: Alanine Aminotransferase 11 U/L (0-33); Albumin Level 4.4 g/dL (3.5-5.2); Alkaline Phosphatase 180 U/L (35-105); Anion Gap 16.3 (5-19); Aspartate Amino Transferase 14 U/L (0-32); Blood Urea Nitrogen 18 mg/dL (8-23); C Reactive Protein 62.1 mg/L (0.0-4.9); Calcium 9.4 mg/dL (8.5-10.5); Carbon Dioxide 20 mmol/L (22-29); Chloride 102 mmol/L (98-107); Globulin 3.1 g/dL (1.3-4.6); Glucose 94 mg/dL (65-115); Osmolality Calculated 280 mOsm/kg (285-295); Potassium 4.3 mmol/L (3.5-5.1); Sodium 134 mmol/L (136-145); Total Bilirubin 0.5 mg/dL (0.15-1.2); Total Protein 7.5 g/dL (6.6-8.7)
[2024-07-12] MEDS: iohexol 350 mg/mL 500 mL Btl (per mL) IV (21:52)
[2024-07-12 21:56] LABS: Procalcitonin 0.07 ng/mL (0-0.5)
[2024-07-12 22:05] LABS: INR 1.45 (0.8-1.2)
--- NOTE | 2024-07-12 22:56 | P.CONIM_ITS ---
Providers/Reason For Consult 2 Consulting Physician/Specialty*: ortho Reason for Consult*: pain Primary Care Provider: Sandra Platt MD History of Present Illness History of Present Illness Marizol Cortés is a 79 year old female with a past medical history of CML, on Jakafi, diverticulosis, history of renal colliculi, history of back pain, recent history of L3-L5 laminectomy, L4 kyphoplasty, she took Plavix today, who presents to [facility] due to intractable back pain. Currently patient is alert oriented x 4, following all commands, denies any urinary incontinence, no bowel incontinence, no saddle perineal anesthesia, patient reports that postoperatively she developed severe pain after surgery yesterday in the evening, and also this morning, she tells me that she has significant lower back pain, states in the lower back does not radiate down the legs, also radiates to her buttocks, bilaterally, she tells me that she cannot walk due to severe pain, but no lack of strength, she does report some numbness of her left leg which is new, no facial droop, no slurring words, no focal weakness, no fevers, no chills, no dysuria, no hematuria, no recent history of UTIs Review of Systems 2 Const: Denies: fever(s) or chills Card: Denies: chest pain Resp: Denies: dyspnea GI: Denies: abdominal pain Medications/Allergies Home Medications Medication Instructions Recorded Confirmed Last Taken Type clopidogrel 75 mg tablet 75 mg PO DAILY 10/25/23 07/13/24 07/07/24 History ruxolitinib 10 mg tablet (Jakafi) 10 mg PO BID 10/25/23 07/13/24 07/10/24 History Folic Acid Vitamin B9 1,000 mg PO DAILY 03/10/24 07/13/24 07/10/24 History Iron 36 mg plus VC 36 mg PO DAILY 03/10/24 07/13/24 07/10/24 History acetaminophen 500 mg tablet 500 mg PO Q6H PRN Pain 03/10/24 07/13/24 07/10/24 History (Tylenol Extra Strength) avmacol with myrosimax 1 tab PO DAILY 03/10/24 07/13/24 07/10/24 History calcium carbonate 1,200 mg PO BID 03/10/24 07/13/24 07/10/24 History carica papaya (Papaya Enzyme 1 tab PO TID 03/10/24 07/13/24 07/10/24 History tablet) cholecalciferol (vitamin D3) 50 50 mcg PO DAILY 03/10/24 07/13/24 07/10/24 History mcg (2,000 unit) capsule clobetasol 0.05 % scalp solution 1 applic topical DAILY 03/10/24 07/13/24 07/10/24 History cranberry 500 mg capsule 2,000 mg PO DAILY 03/10/24 07/13/24 07/10/24 History docusate sodium 100 mg capsule 100 mg PO DAILY PRN Constipation 03/10/24 07/13/24 07/10/24 History (Colace) [id number]-dodqjgorz-kmg C-Mn 1 cap PO BID 03/10/24 07/13/24 07/10/24 History capsule (Glucosamine-Chondroitin Complex capsule) ibuprofen 200 mg tablet 200 mg PO Q6H PRN Pain 03/10/24 07/13/24 07/10/24 History ketoconazole 2 % shampoo 1 applic topical Q14D PRN Itching 03/10/24 07/13/24 07/10/24 History loratadine 10 mg tablet (Allergy 10 mg PO DAILY 03/10/24 07/13/24 07/10/24 History Relief (loratadine)) magnesium 250 mg tablet 500 mg PO DAILY 03/10/24 07/13/24 07/10/24 History multivitamin 1 tab PO DAILY 03/10/24 07/13/24 07/10/24 History turmeric 400 mg capsule 800 mg PO DAILY 03/10/24 07/13/24 07/10/24 History vitamin B complex 1 cap PO DAILY 03/10/24 07/13/24 07/10/24 History zinc acetate 50 mg (zinc) capsule 30 mg PO DAILY 03/10/24 07/13/24 07/10/24 History (Galzin) sulfamethoxazole 800 1 tab PO BID 7 days #14 tabs 04/03/24 07/13/24 07/10/24 Rx mg-trimethoprim 160 mg tablet (Bactrim DS) oxybutynin chloride 5 mg 5 mg PO DAILY 07/10/24 07/13/24 07/10/24 History tablet,extended release 24 hr ruxolitinib 10 mg tablet (Jakafi) 10 mg PO DAILY 07/11/24 07/13/24 07/11/24 07:00 History tramadol 50 mg tablet 50 mg PO Q6H PRN pain 7 days #28 07/14/24 Unknown Rx tabs Allergies Allergy/AdvReac Type Severity Reaction Status Date / Time Tetanus Vaccines and Toxoid Allergy Unknown Verified 07/12/24 18:36 Predisone Allergy Intermediate confusion Uncoded 07/12/24 18:36 PFSH Acute 2 PFSH: Medical History (Updated 07/15/24 @ 00:02 by SHELBIE Figueroa) History of chronic myeloid leukemia FH: total knee replacement Surgical History (Updated 07/15/24 @ 00:02 by SHELBIE Figueroa) H/O tubal ligation History of appendectomy 1965 Family History Mother Diabetes Hypertension Sister CAD (coronary artery disease) Heart disease Hypertension Diabetes Father Lymphoma Brother Hypertension Denies family history of Colon cancer Ovarian cancer Hyperlipidemia Breast cancer Uterine cancer Thyroid disease Stroke Social History Smoking and tobacco/nicotine status: never used tobacco/nicotine Alcohol intake: never Substance/Drug Use: never Household members: spouse Marital status: Marital status details: 19 Number of children: 4 Current 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 status: retired 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 Vitals/I&O/Wt Last Vital Signs Temp 98.4 F 07/12/24 18:29 Pulse 93 07/12/24 21:34 Resp 16 07/12/24 21:34 BP 165/68 07/12/24 21:34 Pulse Ox 90 07/12/24 21:34 O2 Del Method Nasal Cannula 07/12/24 20:46 O2 Flow Rate 1 07/12/24 20:46 Weight last 48 hrs Weight 70.307 kg Physical Exam 2 Const: COMMON NORMALS: no acute distress and patient oriented x3 HENMT: COMMON NORMALS: normocephalic HEAD & SCALP: normocephalic Neck/C-Spine: COMMON NORMALS: no JVD OTHER: No cervical tenderness, no paracervical tenderness, no palpable mass Resp: COMMON NORMALS: normal respiratory effort, No retractions, No use of accessory muscles and clear to auscultation bilaterally AUSCULTATION: clear to auscultation bilaterally Cardio: COMMON NORMALS: no JVD, regular rate, regular rhythm, S1 normal heart sound present and S2 normal heart sound present RATE: regular rate RHYTHM: regular rhythm HEART SOUNDS: S1 normal heart sound present and S2 normal heart sound present GI: COMMON NORMALS: Normal to inspection, nondistended, normoactive bowel sounds present, Soft to palpation, non-tender and no bruits PALPATION: Yes Soft to palpation : OTHER: No CVA tenderness Back/Pelvis: OTHER: Surgical site looks clean and dry No lumbar spinal tenderness, no paraspinal tenderness, no palpable masses, no overlying skin changes, no erythema does have bilateral SI point tenderness to palpation, Extremity: COMMON NORMALS: no calf tenderness and no pedal edema Neuro: COMMON NORMALS: patient oriented x3 OTHER: Alert oriented x 3, following all commands no focal weakness of lower extremities, she has good plantarflexion, good dorsiflexion, good foot inversion, eversion, good strength in anterior posterior compartments of calve, and thighs, of bilateral extremities, does report mild numbness plantar aspect of left foot Psych: COMMON NORMALS: mental status grossly normal Data 07/14/24 03:16 07/14/24 03:16 A&P Assessment and plan (1) Acute low back pain: Plan Acute low back pain, intractable pain -Patient is status post ?Procedure done: 1. L4 kyphoplasty 2. L3-4 laminectomy with partial facetectomy 3. L4-5 laminectomy with partial facetectomy ? CT lumbar spine ? No alarm symptoms - she did take her Plavix today -CT lumbar spine ? Plan ? Pain control Dilaudid 1 mg IV push every 4 hours as needed ? Decadron 6 mg IV push every 24 hours ? Monitor closely ? PT OT ? Hold all blood thinners ? Full code ? SCDs for DVT prophylaxis Consult Attestations 2 Medical Necessity Statement: Patient requires hospitalization, for acute low back pain, postoperative complication Diagnoses Acute low back pain M54.50
[2024-07-12 23:04] LABS: Bilirubin Urine Negative (Negative); Blood Urine Negative (Negative); Glucose Urine UA Negative (Normal); Ketones Urine Trace (Negative); Leukocyte Esterase Urine Negative (Negative); Nitrate Urine Negative (Negative); Protein Urine Trace (Negative); Urine Appearance Clear (CLEAR); Urine Color Yellow (Yellow); pH Urine 5.5 (5-7)
[2024-07-12 23:09] LABS: Add Urine Microscopic? YES; Bacteria Urine None Seen /hpf; Hyaline Casts Urine 9.51 /lpf; RBC Urine 0-2 /hpf (0-2); Universal Test for UA Present (0); WBC Urine 0-5 /hpf (0-5)
[2024-07-12 23:18] LABS: Add Urine Culture? No; Coarse Granular Casts Urine 0-4 /lpf; Mucus Urine TRACE /hpf; Specific Gravity, Urine 1.075 (1.005-1.030)
[2024-07-13] VITALS (11 sets, daily range): BP systolic 109–153; BP diastolic 42–74; PULSE 68–95; RESP 15–20; TEMP 36.8–37.2; O2SAT 96–99
--- NOTE | 2024-07-13 01:10 | PC.NURSE ---
Report was called by Zainab SALAZAR to Halie JOHNSON on [facility].
[2024-07-13] MEDS: sodium chloride 0.9% 1,000 ML 75 ML IV ×2 (01:44→15:58)
[2024-07-13] MEDS: pantoprazole 40 mg SDV IVP (01:47)
--- NOTE | 2024-07-13 10:34 | P.PN_ITS ---
Subjective 2 Subjective: History and physical reviewed. Still having quite a bit of back pain. No fever noted overnight. Medications: Reviewed: Yes Vitals/I&O/Wt Last Vital Signs Temp 98.5 F 07/13/24 08:20 Pulse 77 07/13/24 08:20 Resp 18 07/13/24 08:20 BP 130/65 07/13/24 08:20 Pulse Ox 99 07/13/24 08:20 O2 Del Method Nasal Cannula 07/13/24 08:20 O2 Flow Rate 1 07/12/24 20:46 07/12/24 07/13/24 07/13/24 22:59 06:59 14:59 Intake Total 120 / 120 Balance 120 / 120 Weight last 48 hrs Weight 69.899 kg Weight 70.023 kg Weight 70.307 kg Physical Exam 2 Narrative: General Exam no distress, denies incontinence Neck is supple Cardiovascular regular rate and rhythm Lungs clear Abdomen soft Extremities no sinus clubbing edema, dorsiflexion both feet Back demonstrates surgical site without erythema Data 07/12/24 19:13 07/12/24 19:13 A&P Assessment and plan (1) Acute low back pain: Postoperative day #2 status post kyphoplasty, L3-L4, L4-L5 laminectomy with partial facetectomy PT consultation Dexamethasone given yesterday. Surgery can decide if they would like discontinued postoperatively Pain control with Dilaudid for breakthrough pain. Tylenol also added. Initiate oxycodone as needed. Add senna for bowel regimen. Was given a dose of ketorolac yesterday as well. Plan SCDs for DVT prophylaxis Hold any pharmacologic prophylaxis until after surgery evaluate Attestations 2 Medical Necessity Statement*: Needs continued hospitalization for management of severe postoperative pain requiring IV narcotic Diagnoses Acute low back pain M54.50 Time Spent (min) 26
[2024-07-13] MEDS: sennosides-docusate Tablet 1 TAB PO ×2 (11:52→17:52)
--- NOTE | 2024-07-13 15:45 | P.HP_ITS ---
Providers/Chief Complaint 2 Admitting Physician: Navarro Barahona MD Primary Care Provider: Sandra Platt MD Chief Complaint: back pain s/p surgery History of Present Illness Marizol Cortés is a 79 year old female had surgery had surgery on this past Sunday. Having left leg pain. Review of Systems 2 Const: Denies: fever(s) or chills Card: Denies: chest pain Resp: Denies: dyspnea GI: Denies: abdominal pain Medications/Allergies Home Medications Medication Instructions Recorded Confirmed Last Taken Type clopidogrel 75 mg tablet 75 mg PO DAILY 10/25/23 07/13/24 07/07/24 History ruxolitinib 10 mg tablet (Jakafi) 10 mg PO BID 10/25/23 07/13/24 07/10/24 History Folic Acid Vitamin B9 1,000 mg PO DAILY 03/10/24 07/13/24 07/10/24 History Iron 36 mg plus VC 36 mg PO DAILY 03/10/24 07/13/24 07/10/24 History acetaminophen 500 mg tablet 500 mg PO Q6H PRN Pain 03/10/24 07/13/24 07/10/24 History (Tylenol Extra Strength) avmacol with myrosimax 1 tab PO DAILY 03/10/24 07/13/24 07/10/24 History calcium carbonate 1,200 mg PO BID 03/10/24 07/13/24 07/10/24 History carica papaya (Papaya Enzyme 1 tab PO TID 03/10/24 07/13/24 07/10/24 History tablet) cholecalciferol (vitamin D3) 50 50 mcg PO DAILY 03/10/24 07/13/24 07/10/24 History mcg (2,000 unit) capsule clobetasol 0.05 % scalp solution 1 applic topical DAILY 03/10/24 07/13/24 07/10/24 History cranberry 500 mg capsule 2,000 mg PO DAILY 03/10/24 07/13/24 07/10/24 History docusate sodium 100 mg capsule 100 mg PO DAILY PRN Constipation 03/10/24 07/13/24 07/10/24 History (Colace) xiqigzwrpgs-grvjywsum-udo C-Mn 1 cap PO BID 03/10/24 07/13/24 07/10/24 History capsule (Glucosamine-Chondroitin Complex capsule) ibuprofen 200 mg tablet 200 mg PO Q6H PRN Pain 03/10/24 07/13/24 07/10/24 History ketoconazole 2 % shampoo 1 applic topical Q14D PRN Itching 03/10/24 07/13/24 07/10/24 History loratadine 10 mg tablet (Allergy 10 mg PO DAILY 03/10/24 07/13/24 07/10/24 History Relief (loratadine)) magnesium 250 mg tablet 500 mg PO DAILY 03/10/24 07/13/24 07/10/24 History multivitamin 1 tab PO DAILY 03/10/24 07/13/24 07/10/24 History turmeric 400 mg capsule 800 mg PO DAILY 03/10/24 07/13/24 07/10/24 History vitamin B complex 1 cap PO DAILY 03/10/24 07/13/24 07/10/24 History zinc acetate 50 mg (zinc) capsule 30 mg PO DAILY 03/10/24 07/13/24 07/10/24 History (Galzin) sulfamethoxazole 800 1 tab PO BID 7 days #14 tabs 04/03/24 07/13/24 07/10/24 Rx mg-trimethoprim 160 mg tablet (Bactrim DS) oxybutynin chloride 5 mg 5 mg PO DAILY 07/10/24 07/13/24 07/10/24 History tablet,extended release 24 hr ruxolitinib 10 mg tablet (Jakafi) 10 mg PO DAILY 07/11/24 07/13/24 07/11/24 07:00 History tramadol 50 mg tablet 50 mg PO Q4H PRN pain 7 days #40 07/11/24 07/13/24 Unknown Rx tabs Allergies Allergy/AdvReac Type Severity Reaction Status Date / Time Tetanus Vaccines and Toxoid Allergy Unknown Verified 07/12/24 18:36 Predisone Allergy Intermediate confusion Uncoded 07/12/24 18:36 PFSH Acute 2 PFSH: Medical History (Updated 07/13/24 @ 00:15 by OSVALDO Case) History of chronic myeloid leukemia FH: total knee replacement Surgical History (Updated 07/13/24 @ 15:48 by Kwadwo Olivas DO) H/O tubal ligation History of appendectomy 1965 Family History Mother Diabetes Hypertension Sister CAD (coronary artery disease) Heart disease Hypertension Diabetes Father Lymphoma Brother Hypertension Denies family history of Colon cancer Ovarian cancer Hyperlipidemia Breast cancer Uterine cancer Thyroid disease Stroke Social History Smoking and tobacco/nicotine status: never used tobacco/nicotine Alcohol intake: never Substance/Drug Use: never Household members: spouse Marital status: Marital status details: 18 Number of children: 4 Current 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 status: 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 Vitals/I&O/Wt Last Vital Signs Temp 98.2 F 07/13/24 12:05 Pulse 75 07/13/24 12:05 Resp 20 H 07/13/24 12:05 BP 119/42 07/13/24 12:05 Pulse Ox 98 07/13/24 12:05 O2 Del Method Nasal Cannula 07/13/24 12:05 O2 Flow Rate 1 07/12/24 20:46 07/13/24 07/13/24 07/13/24 06:59 14:59 22:59 Intake Total 480 / 480 1000 / 1480 Output Total 300 / 300 Balance 180 / 180 1000 / 1180 Weight last 48 hrs Weight 154 lb 1.6 oz Weight 154 lb 6 oz Weight 155 lb Physical Exam 2 Narrative: 5/5 strength BLE Data 07/12/24 19:13 07/12/24 19:13 A&P Assessment and plan (1) Status post lumbar laminectomy: will add decadron Attestations 2 Medical Necessity Statement*: pain Coding Level of Care Code Acute Code for Chg Fwd Diagnoses Status post lumbar laminectomy Z98.890
[2024-07-13] MEDS: HYDROmorphone 1 mg/mL INJ 1 mL IVP (15:54)
[2024-07-13] MEDS: dexamethasone 10 mg/mL INJ IVP ×2 (17:15→21:37)
[2024-07-14] VITALS: BP 158/72; PULSE 82; RESP 18; TEMP 36.6; O2SAT 97
[2024-07-14 03:23] LABS: Basophils % 0.2 %; Eosinophils # 0.2 10^3/uL (0.0-0.8); Eosinophils % 1.5 %; Lymphocytes # 1.5 10^3/uL (0.8-4.8); Lymphocytes % 11.4 %; Mean Corpuscular HGB Conc 32.2 g/dL (30-55); Mean Corpuscular Hemoglobin 32.5 pg (27-33); Mean Corpuscular Volume 100.7 fl (85-98); Mean Platelet Volume 10.9 fL (7.4-10.4); Monocytes # 1.6 10^3/uL (0.2-0.9); Neutrophils # 9.48 10^3/uL (1.8-7.7); Neutrophils % 71.4 %; Nucleated Red Blood Cells % 0 %; Platelet Count 379 10^3/cmm (157-399); Red Blood Count 2.68 10^6/uL (3.85-5.65); Red Cell Distribution Width 14.9 % (12.1-15.1); White Blood Count 13.29 10^3/uL (3.29-11.43)
[2024-07-14 03:41] LABS: Alanine Aminotransferase 9 U/L (0-33); Albumin Level 3.6 g/dL (3.5-5.2); Alkaline Phosphatase 134 U/L (35-105); Anion Gap 12.6 (5-19); Aspartate Amino Transferase 10 U/L (0-32); Blood Urea Nitrogen 18 mg/dL (8-23); Calcium 8.3 mg/dL (8.5-10.5); Carbon Dioxide 20 mmol/L (22-29); Chloride 108 mmol/L (98-107); Creatinine Clr Calc Pharmacy 51.3715; Globulin 2.7 g/dL (1.3-4.6); Glucose 180 mg/dL (65-115); Osmolality Calculated 288 mOsm/kg (285-295); Potassium 4.6 mmol/L (3.5-5.1); Sodium 136 mmol/L (136-145); Total Bilirubin 0.4 mg/dL (0.15-1.2); Total Protein 6.3 g/dL (6.6-8.7)
[2024-07-14 04:00] VITALS: BP 137/65; PULSE 70; RESP 17; TEMP 36.6; O2SAT 100
[2024-07-14] MEDS: sodium chloride 0.9% 1,000 ML 75 ML IV (04:12)
[2024-07-14] MEDS: dexamethasone 10 mg/mL INJ IVP ×2 (04:12→11:43)
[2024-07-14 05:50] VITALS: PULSE 95
[2024-07-14 07:27] VITALS: BP 145/70; PULSE 65; RESP 18; TEMP 36.7; O2SAT 99
[2024-07-14] MEDS: pantoprazole DR 40 mg Tablet PO (08:47)
--- NOTE | 2024-07-14 09:46 | P.PN_ITS ---
Subjective 2 Subjective: Reports her pain is under better control. Eager to work with therapy today. Medications: Reviewed: Yes Vitals/I&O/Wt Last Vital Signs Temp 98.1 F 07/14/24 07:27 Pulse 65 07/14/24 07:27 Resp 18 07/14/24 07:27 BP 145/70 07/14/24 07:27 Pulse Ox 99 07/14/24 07:27 O2 Del Method Nasal Cannula 07/14/24 07:27 O2 Flow Rate 2 07/14/24 04:00 07/13/24 07/14/24 07/14/24 22:59 06:59 14:59 Intake Total 1360 / 1840 917.5 / 2757.5 1120 / 1120 Output Total 600 / 900 Balance 760 / 940 917.5 / 1857.5 1120 / 1120 Weight last 48 hrs Weight 71.696 kg Weight 69.899 kg Weight 70.023 kg Weight 70.307 kg Physical Exam 2 Narrative: General Exam no distress Cardiovascular regular rate and rhythm Lungs clear Abdomen soft Extremities no sinus clubbing edema, dorsiflexion both feet Back demonstrates surgical site without erythema Data 07/14/24 03:16 07/14/24 03:16 A&P Assessment and plan (1) Acute low back pain: Postoperative day #3 status post kyphoplasty, L3-L4, L4-L5 laminectomy with partial facetectomy PT consultation given. They will work with her today. Dexamethasone given yesterday. Surgery has continue dexamethasone Pain control with Dilaudid for breakthrough pain. Tylenol also added. Continue oxycodone as needed. Added senna for bowel regimen. Was given a dose of ketorolac yesterday as well. Plan SCDs for DVT prophylaxis She can reinitiate her Plavix Further DVT prophylaxis per primary Attestations 2 Medical Necessity Statement*: I will sign off. There is no evidence of infection. Will be available for questions. Diagnoses Acute low back pain M54.50 Time Spent (min) 21
--- NOTE | 2024-07-14 10:22 | PC.CHAP ---
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 [] Patient/Family/Request visit [] Outpatient visit [] Follow-up visit [] Physician referral [] Code/Alert [x] Routine visit [] Staff referral [] Actively dying [] Patient sleeping [x] Family support [] [] Out of room [] Palliative care [] [] Receiving care in room [] Pre-surgical visit [] Trauma [] Long length of stay [] ICU visit [] Other: Relational/Emotional Strength [x] Patient feels connected with others/family/visitors/staff [] Distress [] Loneliness/isolation [] Abandonment Spirituality of Patient [x] Person of Pam [] Attends Tenriism of their Pam [x] Believes in Prayer [] Reads Bible or Jainism materials [] There are Spiritual issues to be addressed Home Health Care Provider Interventions [x] Prayer [x] Active listening [x] Non-anxious presence [x] Spiritual/emotional support [] Crisis/trauma care [] Spiritual counseling [] Bereavement support [] Provided bereavement packet [] Provided Bible/devotional materials [] Provided toy/stuffed animal, coloring book to patient or family member [] Provided Communion [] Anointing/[place] [] Salvation [x] Completed spiritual assessment [] Other: Impact on Illness or Injury [] Angry [] Fearful [] Anxious [] Often cries [] Exhaustion [] Unable to work [] Unable to attend scientologist [] Unable to walk/stand [] Unable to read [] Unable to drive [] Unable to eat/drink [] Unable to sleep [] Unable to be with family [] Patient intubated [] Other: Summary Time spent with patient 5 min
--- NOTE | 2024-07-14 11:07 | P.DS_ITS ---
Discharge Providers Date of Admission: 07/13/24 00:13 Date of Discharge: July 14, 2024 Attending Provider at Admission: Navarro Barahona MD Attending Provider at Discharge: Ciro Mancera MD Primary Care Provider: Sandra Platt MD Diagnoses at Discharge Discharge Diagnosis (1) Acute low back pain: Status: Acute Reason for Visit Reason for Visit: back pain s/p surgery Physical Exam Narrative: Patient doing much better today. She is moving her abdomen freely in the bed. At this point plan will be to discharge her today. Discharge Data Studies Completed and Pending Completed Studies During Hospitalization Category Date Time Status CT lumbar spine w con [id number] Stat Cat Scan 07/12/24 21:30 Completed Radiology Impressions Lumbar Spine CT 07/12/24 21:30 IMPRESSION: 1. Subcutaneous emphysema about the left paraspinal muscle may be postsurgical in nature. 2. L4 vertebral body chronic appearing compression deformity and vertebroplasty changes without retropulsion of bony fragments, similar to prior exam. 3. L3-L4 broad-based disc bulge with mild spinal canal and bilateral foraminal narrowing with left laminectomy changes.Contrast is also seen in the intervertebral disc space. 4. L4-L5 broad-based disc bulge with moderate to severe spinal canal and bilateral foraminal narrowing. 5. L5-S1 broad-based disc bulge and productive degenerative changes with moderate spinal canal and moderate to severe bilateral foraminal narrowing. 6. Subcutaneous edema about the lumbar spine without focal fluid collection. 7. Bilateral sacral chronic insufficiency fractures suspected. Laboratory Results WBC 13.29 10^3/uL (3.29-11.43) H 07/14/24 03:16 RBC 2.68 10^6/uL (3.85-5.65) L 07/14/24 03:16 Hgb 8.70 g/dL (11.27-16.99) L 07/14/24 03:16 Hct 27.0 % (36-47) L 07/14/24 03:16 MCV 100.7 fl (85-98) H 07/14/24 03:16 MCH 32.5 pg (27-33) 07/14/24 03:16 MCHC 32.2 g/dL (30-55) 07/14/24 03:16 RDW 14.9 % (12.1-15.1) 07/14/24 03:16 Plt Count 379 10^3/cmm (157-399) 07/14/24 03:16 MPV 10.9 fL (7.4-10.4) H 07/14/24 03:16 Neut % (Auto) 71.4 % 07/14/24 03:16 Lymph % (Auto) 11.4 % 07/14/24 03:16 Weld % (Auto) 12.0 % 07/14/24 03:16 Eos % (Auto) 1.5 % 07/14/24 03:16 Baso % (Auto) 0.2 % 07/14/24 03:16 Neut # (Auto) 9.48 10^3/uL (1.8-7.7) H 07/14/24 03:16 Lymph # (Auto) 1.5 10^3/uL (0.8-4.8) 07/14/24 03:16 Weld # (Auto) 1.6 10^3/uL (0.2-0.9) H 07/14/24 03:16 Eos # (Auto) 0.2 10^3/uL (0.0-0.8) 07/14/24 03:16 Baso # (Auto) 0.0 10^3/uL (0.0-0.1) 07/14/24 03:16 Nucleated RBC % (auto) 0 % 07/14/24 03:16 Nucleated RBCs # 0.0 /100WBC 07/14/24 03:16 ESR 17 mm/hr (0-15) H 07/12/24 19:13 PT 18.10 SECONDS (12.1-14.9) H 07/12/24 19:13 INR 1.45 (0.8-1.2) H 07/12/24 19:13 Sodium 136 mmol/L (136-145) 07/14/24 03:16 Potassium 4.6 mmol/L (3.5-5.1) 07/14/24 03:16 Chloride 108 mmol/L (98-107) H 07/14/24 03:16 Carbon Dioxide 20 mmol/L (22-29) L 07/14/24 03:16 Anion Gap 12.6 (5-19) 07/14/24 03:16 BUN 18 mg/dL (8-23) 07/14/24 03:16 Creatinine 0.8 mg/dL (0.5-0.9) 07/14/24 03:16 GFR Calculation Not Reportable 07/14/24 03:16 Glucose 180 mg/dL (65-115) H 07/14/24 03:16 Calculated Osmolality 288 mOsm/kg (285-295) 07/14/24 03:16 Calcium 8.3 mg/dL (8.5-10.5) L 07/14/24 03:16 Total Bilirubin 0.4 mg/dL (0.15-1.2) 07/14/24 03:16 AST 10 U/L (0-32) 07/14/24 03:16 ALT 9 U/L (0-33) 07/14/24 03:16 Alkaline Phosphatase 134 U/L (35-105) H 07/14/24 03:16 C-Reactive Protein 62.1 mg/L (0.0-4.9) H 07/12/24 19:13 Total Protein 6.3 g/dL (6.6-8.7) L 07/14/24 03:16 Albumin 3.6 g/dL (3.5-5.2) 07/14/24 03:16 Globulin 2.7 g/dL (1.3-4.6) 07/14/24 03:16 Procalcitonin 0.07 ng/mL (0-0.5) 07/12/24 19:13 Urine Color Yellow (Yellow) 07/12/24 22:56 Urine Appearance Clear (CLEAR) 07/12/24 22:56 Urine pH 5.5 (5-7) 07/12/24 22:56 Ur Specific [place] 1.075 (1.005-1.030) H 07/12/24 22:56 Urine Protein Trace (Negative) A 07/12/24 22:56 Urine Glucose (UA) Negative (Normal) 07/12/24 22:56 Urine Ketones Trace (Negative) 07/12/24 22:56 Urine Blood Negative (Negative) 07/12/24 22:56 Urine Nitrate Negative (Negative) 07/12/24 22:56 Urine Bilirubin Negative (Negative) 07/12/24 22:56 Urine Urobilinogen 1.0 mg/dL (Negative) 07/12/24 22:56 Ur Leukocyte Esterase Negative (Negative) 07/12/24 22:56 Urine RBC 0-2 /hpf (0-2) 07/12/24 22:56 Urine WBC 0-5 /hpf (0-5) 07/12/24 22:56 Ur Squamous Epith Cells 6-10 /hpf (0-5) 07/12/24 22:56 Amorphous Sediment Not Reportable 07/12/24 22:56 Urine Bacteria None seen /hpf (NONE) 07/12/24 22:56 Hyaline Casts 9.51 /lpf 07/12/24 22:56 Coarse Granular Casts 0-4 /lpf H 07/12/24 22:56 Urine Mucus Trace /hpf 07/12/24 22:56 Vitals Last Vital Signs Temp 98.1 F 07/14/24 07:27 Pulse 65 07/14/24 07:27 Resp 18 07/14/24 07:27 BP 145/70 07/14/24 07:27 Pulse Ox 99 07/14/24 07:27 O2 Del Method Nasal Cannula 07/14/24 07:27 O2 Flow Rate 2 07/14/24 04:00 Discharge Plan Discharge Patient Disposition: Home Condition: Stable Prescriptions: New tramadol 50 mg tablet 50 mg PO Q6H PRN (Reason: pain) 7 Days Qty: 28 0RF Continued clopidogrel 75 mg tablet 75 mg PO DAILY Hold Instructions: Resume on 07/14/24. Jakafi 10 mg tablet 10 mg PO BID multivitamin Tablet 1 tab PO DAILY Papaya Enzyme Tablet 1 tab PO TID Rx Instructions: administer with meals ketoconazole 2 % shampoo 1 applic topical Q14D PRN (Reason: Itching) Galzin 50 mg (zinc) capsule 30 mg PO DAILY Glucosamine-Chondroitin Complx Capsule 1 cap PO BID acetaminophen [Tylenol Extra Strength] 500 mg tablet 500 mg PO Q6H PRN (Reason: Pain) calcium carbonate 600 mg calcium (1,500 mg) tablet 1,200 mg PO BID ibuprofen 200 mg tablet 200 mg PO Q6H PRN (Reason: Pain) Hold Instructions: Resume on 07/14/24. docusate sodium [Colace] 100 mg capsule 100 mg PO DAILY PRN (Reason: Constipation) magnesium 250 mg tablet 500 mg PO DAILY clobetasol 0.05 % solution 1 applic topical DAILY loratadine [Allergy Relief (loratadine)] 10 mg tablet 10 mg PO DAILY cranberry 500 mg capsule 2,000 mg PO DAILY Rx Instructions: administer with meals vitamin B complex Capsule 1 cap PO DAILY cholecalciferol (vitamin D3) 50 mcg (2,000 unit) capsule 50 mcg PO DAILY turmeric 400 mg capsule 800 mg PO DAILY Folic Acid Vitamin B9 1,000 mg 1,000 mg PO DAILY Iron 36 mg plus VC 36 mg PO DAILY Rx Instructions: with 4 oz prune juice avmacol with myrosimax 1 tab PO DAILY Rx Instructions: daily with meal sulfamethoxazole-trimethoprim [Bactrim DS] 800-160 mg tablet 1 tab PO BID 7 Days Qty: 14 0RF Rx Instructions: x 7 days starting 07/08/2024 oxybutynin chloride 5 mg tablet extended release 24hr 5 mg PO DAILY Rx Instructions: TAKE 1 TABLET BY MOUTH DAILY Jakafi 10 mg tablet 10 mg PO DAILY Discontinued tramadol 50 mg tablet 50 mg PO Q4H PRN (Reason: pain) 7 Days Qty: 40 0RF Discharge Orders: Discharge Order (Routine); Ordered 07/14/24 Ordered By: Kwadwo Olivas Referrals: Sandra Platt MD [Primary Care Provider] - Discharge Diet: Advance as tolerated Discharge Activity: Limit activity as instructed Patient Instructions: Opioid Safety Activity Restrictions/Additional Instructions: Thank you for [facility] for your care! The following is a list of instructions, from your provider, to follow upon your discharge to ensure you have the optimal recovery from your recent injury orsurgery. Follow-up care is a suarez part of your treatment and safety. Be sure to make and go to all appointments, and call your doctor if you are having problems. If you do not already have a follow-up appointment made, call Dr. Olivas office in the next 1-3 days to make follow up appointment for 2 weeks at [phone]. It is also a good idea to know your test results and keep a list of the medicines you take. Medications will be prescribed for you at your provider's discretion. These medications are to be used as instructed; if they are taken more often that prescribed they will not be refilled early and in most cases will not be refilled at all. > When a refill is needed,you should contact [facility] 2-3 business days before your prescription runs out. Medications will NOT be refilled by organizational development manager providers after hours! > Many pain medications contain Tylenol (Acetaminophen). Do not consume more than 4,000 mg of Tylenol per day in total with any combination ofmedications. > Pain medications can cause constipation. Please use an over the counter stool softener as directed, while taking pain medications. Consulty our local pharmacist with questions or recommendations on stool softeners. If constipation persists, contact our office or your primary care provider. > While under our care,you are not to receive pain medications or other controlled substances from any other provider unless our office is notified and approves. Any attempts to do so will result in refusal to prescribe any further pain medications and possible dismissal from our practice. ? Your wound and/or dressing should remain clean and dry for 2 days after surgery. On postoperative day 2 (48 hours after your surgery) the dressing (if present) should be removed and it is okay to shower and get the incision wet. Pad dry afterwards. No further dressing should be required from that point on. Do not put any creams or ointments on theincision > It is normal for there to be a small amount of discharge (bloody or blood tinged) present from a surgical wound for the first 1-3days. > The wound should be examined twice a day for signs of infection. Mild redness or bruising is to be expected but indications that an infection maybe starting would include; An increase in redness, swelling, or discharge, a foul odor present around the incision, and/or a fever greater than 101 ?F ? Showering is permitted, however we ask that you do not take a bath, sit in a whirlpool / Jacuzzi, or go swimming for 1 month. For only the first 2 days after surgery, lt wilt be necessary for you to cover your wound/dressing with plastic and tape to keep it dry. ? Walking is essential for the healing process after surgery. We would like you to slowly advance your walking. This should be done on relatively flat clear ground (inside or out) or can be done on a treadmill. Remember this goal does not have to happen all at once, slowly increase your distance and duration. This can be broken into more more than one walk per day as tolerated. Patients who walk as directed after surgery rarely require P hysical Therapy. In the unlikely event this issue arises your provider will direct hospital staff to make the appropriate arrangements. ? No lifting over 5 pounds {a gallon of milk) or bending/twisting until further notice. Each of these activities places an unnecessary amount of stress onto the body and can impede the delicate healing process. > Instead of bending at the waist, keep your back straight and bend at the knees. > Instead of twisting your torso, keep your back straight and turn your entire body with your feet. ? You may sleep in any position which makes you comfortable. Many patients find comfort sleeping in a reclining chair. It is not abnormal to have difficulty sleeping for the first several weeks following your surgery. We recommend trying Benadry! or Tylenol PM as directed to help with your sleeping difficulties. Both medications are over the counter and available withoutprescription. ? NO SMOKING!!! Smoking dramatically increases the probability of developing postoperative wound infections. ? Common complaints after lumbar and/or thoracic spine surgery include, but are not limited to: numbness and/or tingling in the legs, pain around the incision and surrounding tissues, muscle spasms, or stiffness of the middle to low back. Contact our office if these symptoms persist or if an acute change occurs. ? No driving for the first 3-5days, and not while taking narcotics until seen at your follow-up appointment and cleared. There are no restrictions for riding on short trips, however if you take a longer trip, arrangements should be made to make regular stops to get out of the vehicle and stretch . ? Swelling is an unfortunate event that will take place with any surgery and is the primary source of your postoperative discomfort. While walking and regular approved activities helps control inflammation, there are additional steps you can take to minimizeswelling. > Place ice over the surgical site and surrounding tissue for twenty minutes, followed by applying a low/medium heat (heating pad) for an additional twenty minutes every 1-2 hours as needed for painrelief. > You may use of over the counter anti-inflammatory medications (Ibuprofen, Motrin, Aleve, Advil, etc) as directed on the package label. These types of medicines wm significantly reduce the amount of discomfort you e xperience after surgery from swelling. It should be noted that if you have and allergy to any of these medications, or a history of ulcers or kidney disease you should consult you primary care provider prior to starting these medications. Discharge Attestations Time Spent in Discharge Care*: less than 30 min Quality Metrics Clinical Quality Measures [ No reported AMI, CVA or VTE this stay] Coding Level of Care Code Acute Code for Chg Fwd Diagnoses Acute low back pain M54.50
[2024-07-14 11:34] VITALS: BP 162/66; PULSE 78; RESP 20; TEMP 36.5; O2SAT 95
[2024-07-14] MEDS: clopidogrel 75 mg Tablet PO (11:43)
--- NOTE | 2024-07-14 15:51 | PC.OT ---
OT TREATMENT HELD TODAY DUE TO SCHEDULED PATIENT D/C
== END 2024-07-14 11:33 | disposition home or self-care (01) | DRG 948 ==
LOC: ER 07-13 00:15 → MEDSURG 07-13 00:32
PROVIDERS: Admitting Provider Family Medicine; Emergency Provider Physician Assistant; PCP Family Medicine; Visit Provider Internal Medicine
DX: G89.18 Other acute postprocedural pain (principal); C92.10 Chronic myeloid leukemia, BCR/ABL-positive, not having achieved remission; Z96.659 Presence of unspecified artificial knee joint; Z79.899 Other long term (current) drug therapy; Z87.442 Personal history of urinary calculi; Z79.02 Long term (current) use of antithrombotics/antiplatelets
CPT/HCPCS: 36415; 72132; 80053; 81001; 84145; 85025; 85610; 85651; 86140; 94664; 96374; 96375; 97161; 99285; J1100; J1170; J1885; J2270; J2360; J2405; J2470; J7030

== ENCOUNTER 2024-07-20 05:47 | Emergency (ER) | payer MEDICARE, OTHER, SELFPAY ==
[2024-07-20] VITALS (28 sets, daily range): BP systolic 138–171; BP diastolic 41–78; PULSE 73–112; RESP 12–25; TEMP 36.7–36.8; O2SAT 86–99; BMI 27.4
--- NOTE | 2024-07-20 06:40 | XRR_ITS ---
PROCEDURE INFORMATION: Exam: XR Abdomen Exam date and time: 07/20/2024 6:50 AM Age: 79 years old Clinical indication: Constipation; Abdominal pain; Generalized; Additional info: Abdominal pain, constipation, post op laminectomy TECHNIQUE: Imaging protocol: Radiologic exam of the abdomen. Views: Frontal supine view of the abdomen. 1 View. COMPARISON: CT abdomen pelvis w con* [id number] 06/24/2024 11:11 AM FINDINGS: Gastrointestinal tract: Normal. No bowel dilation. Bones/joints: Unremarkable. XR/XR KUB [id number] IMPRESSION: No acute findings.
--- NOTE | 2024-07-20 06:40 | XRR_ITS ---
PROCEDURE INFORMATION: Exam: XR Chest Exam date and time: 07/20/2024 6:49 AM Age: 79 years old Clinical indication: Dyspnea; Additional info: AMS TECHNIQUE: Imaging protocol: Radiologic exam of the chest. Views: 1 view. COMPARISON: CR (CHEST, ) 07/07/2024 5:12 AM FINDINGS: Lungs: Unremarkable. No consolidation. Pleural spaces: Unremarkable. No pleural effusion. No pneumothorax. Heart/Mediastinum: Unremarkable. No cardiomegaly. Bones/joints: Unremarkable. XR/XR chest 1V portable [id number] IMPRESSION: No acute findings.
--- NOTE | 2024-07-20 06:41 | CTR_ITS ---
PROCEDURE INFORMATION: Exam: CT Head Without Contrast Exam date and time: 07/20/2024 6:55 AM Age: 79 years old Clinical indication: Altered mental status/memory loss; Confusion or disorientation; Additional info: AMS TECHNIQUE: Imaging protocol: Computed tomography of the head without contrast. Radiation optimization: All CT scans at this facility use at least one of these dose optimization techniques: automated exposure control; mA and/or kV adjustment per patient size (includes targeted exams where dose is matched to clinical indication); or iterative reconstruction. COMPARISON: No relevant prior studies available. RADIATION DOSE METRICS: Total DLP (mGy-cm): 1035.68 FINDINGS: Brain: No hemorrhage. Periventricular white matter lucency represents atherosclerotic encephalopathic changes. No mass effect. Likely small area of encephalomalacia in the right parietooccipital region. Cerebral ventricles: No ventriculomegaly. Ventricular prominence proportionate to the degree of atrophy observed. Paranasal sinuses: Visualized sinuses are unremarkable. No fluid levels. Mastoid air cells: Visualized mastoid air cells are well aerated. Bones: Unremarkable. No acute fracture. Soft tissues: Unremarkable. CT/CT head wo con* [id number] IMPRESSION: No acute intracranial abnormality.
[2024-07-20 06:57] LABS: Basophils % 0.1 %; Eosinophils # 0.7 10^3/uL (0.0-0.8); Eosinophils % 3.4 %; Lymphocytes # 2.5 10^3/uL (0.8-4.8); Lymphocytes % 11.6 %; Mean Corpuscular Volume 97.1 fl (85-98); Mean Platelet Volume 10.8 fL (7.4-10.4); Monocytes % 32.6 %; Neutrophils # 10.78 10^3/uL (1.8-7.7); Neutrophils % 50.2 %; Nucleated Red Blood Cells % 0 %; Platelet Count 422 10^3/cmm (157-399); Red Blood Count 3.09 10^6/uL (3.85-5.65); Red Cell Distribution Width 14.7 % (12.1-15.1); White Blood Count 21.46 10^3/uL (3.29-11.43)
[2024-07-20 07:15] LABS: Alanine Aminotransferase 10 U/L (0-33); Albumin Level 3.9 g/dL (3.5-5.2); Alkaline Phosphatase 163 U/L (35-105); Blood Urea Nitrogen 11 mg/dL (8-23); Calcium 9.1 mg/dL (8.5-10.5); Carbon Dioxide 22 mmol/L (22-29); Chloride 102 mmol/L (98-107); Creatinine Clr Calc Pharmacy 50.7128; Globulin 3.2 g/dL (1.3-4.6); Glucose 95 mg/dL (65-115); Magnesium 1.9 mg/dL (1.7-2.3); Osmolality Calculated 277 mOsm/kg (285-295); Sodium 134 mmol/L (136-145); Total Bilirubin 0.4 mg/dL (0.15-1.2); Total Protein 7.1 g/dL (6.6-8.7)
[2024-07-20 07:16] LABS: Anion Gap 13.7 (5-19); Aspartate Amino Transferase 16 U/L (0-32); Potassium 3.7 mmol/L (3.5-5.1)
--- NOTE | 2024-07-20 07:20 | ED_ITS ---
HPI - Back Pain/Injury 2 General: Chief Complaint: Back Pain/Injury Stated Complaint: BACK PAIN Time Seen by Provider: 07/20/24 06:06 History of Present Illness: This patient is an 79-year-old presenting with complaints of uncontrolled back pain following surgery. She tells me that it is actually not bothering her right at this moment. She also is concerned that she has been delusional . She says that she is having hard time thinking and has been saying crazy things to her family members. At the time of my interview she is here by herself and given that complaint it is unclear how reliable her history is. She also has not had a bowel movement in the last 5 days. She complains of weakness in her legs as well as tingling in both feet. She says this is new since her surgery. She is not able to ambulate without assistance which is also new since her surgery. The surgery was a laminectomy for fracture of L4. This was done here by Dr. Olivas on the . She has been taking pain medicine at home but says it is inadequate. She is on tramadol. She also has a history of leukemia and is on medications for that. She denies history of stroke. She did have a trauma when she was in her 20s resulting in a skull fracture and she tells me that she has had double vision since then. She denies fevers or chills. She feels like she has to strain to urinate but is able to go adequately. She denies any other medical history. Her medicine list does include clopidogrel. It also includes Jakafi, Ruxolitinib, tramadol. She was on Bactrim prior to her back surgery for UTI. She is not on it currently. She had steroids during hospitalization but finished them at least 4 to 5 days ago. Related Data Home Medications Medication Instructions Recorded Confirmed clopidogrel 75 mg tablet 75 mg PO DAILY 10/25/23 07/13/24 ruxolitinib 10 mg tablet (Jakafi) 10 mg PO BID 10/25/23 07/13/24 Folic Acid Vitamin B9 1,000 mg PO DAILY 03/10/24 07/13/24 Iron 36 mg plus VC 36 mg PO DAILY 03/10/24 07/13/24 acetaminophen 500 mg tablet 500 mg PO Q6H PRN Pain 03/10/24 07/13/24 (Tylenol Extra Strength) avmacol with myrosimax 1 tab PO DAILY 03/10/24 07/13/24 calcium carbonate 1,200 mg PO BID 03/10/24 07/13/24 carica papaya (Papaya Enzyme 1 tab PO TID 03/10/24 07/13/24 tablet) cholecalciferol (vitamin D3) 50 50 mcg PO DAILY 03/10/24 07/13/24 mcg (2,000 unit) capsule clobetasol 0.05 % scalp solution 1 applic topical DAILY 03/10/24 07/13/24 cranberry 500 mg capsule 2,000 mg PO DAILY 03/10/24 07/13/24 docusate sodium 100 mg capsule 100 mg PO DAILY PRN Constipation 03/10/24 07/13/24 (Colace) [id number] C-Mn 1 cap PO BID 03/10/24 07/13/24 capsule (Glucosamine-Chondroitin Complex capsule) ibuprofen 200 mg tablet 200 mg PO Q6H PRN Pain 03/10/24 07/13/24 ketoconazole 2 % shampoo 1 applic topical Q14D PRN Itching 03/10/24 07/13/24 loratadine 10 mg tablet (Allergy 10 mg PO DAILY 03/10/24 07/13/24 Relief (loratadine)) magnesium 250 mg tablet 500 mg PO DAILY 03/10/24 07/13/24 multivitamin 1 tab PO DAILY 03/10/24 07/13/24 turmeric 400 mg capsule 800 mg PO DAILY 03/10/24 07/13/24 vitamin B complex 1 cap PO DAILY 03/10/24 07/13/24 zinc acetate 50 mg (zinc) capsule 30 mg PO DAILY 03/10/24 07/13/24 (Galzin) oxybutynin chloride 5 mg 5 mg PO DAILY 07/10/24 07/13/24 tablet,extended release 24 hr ruxolitinib 10 mg tablet (Jakafi) 10 mg PO DAILY 07/11/24 07/13/24 Previous Rx's Medication Instructions Recorded sulfamethoxazole 800 1 tab PO BID 7 days #14 tabs 04/03/24 mg-trimethoprim 160 mg tablet (Bactrim DS) tramadol 50 mg tablet 50 mg PO Q6H PRN pain 7 days #28 07/14/24 tabs cyclobenzaprine 5 mg tablet 5 mg PO TID PRN muscle spasm 7 07/18/24 days #21 tabs Allergies Allergy/AdvReac Type Severity Reaction Status Date / Time Tetanus Vaccines and Toxoid Allergy Unknown Verified 07/12/24 18:36 Predisone Allergy Intermediate confusion Uncoded 07/12/24 18:36 [facility] ED 2 PFSH: Medical History (Updated 07/20/24 @ 16:31 by Carline Alejandra MD) History of chronic myeloid leukemia FH: total knee replacement Surgical History (Updated 07/20/24 @ 16:31 by Carline Alejandra MD) H/O tubal ligation History of appendectomy 1965 Family History Mother Diabetes Hypertension Sister CAD (coronary artery disease) Heart disease Hypertension Diabetes Father Lymphoma Brother Hypertension Denies family history of Colon cancer Ovarian cancer Hyperlipidemia Breast cancer Uterine cancer Thyroid disease Stroke Social History Smoking and tobacco/nicotine status: never used tobacco/nicotine Alcohol intake: never Substance/Drug Use: never Household members: spouse Marital status: Marital status details: 18 Number of children: 4 Current 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 status: retired [employer] Physical Exam 2 Const: COMMON NORMALS: no acute distress and alert GENERAL APPEARANCE: c ooperative and comfortable HENMT: HEAD & SCALP: normal to inspection Neck/C-Spine: COMMON NORMALS: supple, no meningeal signs and no JVD Chest: COMMONS NORMALS: normal inspection of the chest Resp: COMMON NORMALS: normal respiratory effort, No use of accessory muscles and clear to auscultation bilaterally AUSCULTATION: clear to auscultation bilaterally Cardio: COMMON NORMALS: no JVD, regular rate, regular rhythm and No murmurs present (Cardio) RATE: regular rate RHYTHM: regular rhythm GI: COMMON NORMALS: Normal to inspection, nondistended, normoactive bowel sounds present, Soft to palpation and non-tender INSPECTION: Yes normal to inspection AUSCULTATION: Yes normoactive bowel sounds PALPATION: Yes Soft to palpation Back/Pelvis: OTHER: There is an incision over the lumbar region with no dressing in place. The incision is clean, dry, intact. There is no evidence of local infection. No significant tenderness around the area. Extremity: COMMON NORMALS: normal to inspection Neuro: COMMON NORMALS: moves all extremities and no focal motor deficits S ENSORIUM/ORIENTATION: Yes alert MENINGEAL SIGNS: Yes no meningeal signs O THER: Sensation is present in all 4 extremities. She reports decreased sensation in bilateral feet. She does have somewhat decreased strength in both lower extremities although it is unclear how much of that is related to effort. She is able to move herself around the bed. Psych: COMMON NORMALS: mental status grossly normal, cooperative and normal affect OTHER: She did say several things that are somewhat questionable in their accuracy. However she is generally appropriate and oriented. Skin: COMMON NORMALS: no rashes or lesions noted and turgor normal GENERAL SKIN EXAM: no rashes or lesions noted and turgor normal Course 2 Vital Signs: Vital signs: Vital Signs Temperature 98.0 F 07/20/24 09:33 Pulse Rate 112 H 07/20/24 11:30 Respiratory Rate 16 07/20/24 12:55 Blood Pressure 157/48 07/20/24 16:00 Pulse Oximetry 94 07/20/24 16:00 Oxygen Delivery Me thod Room Air 07/20/24 06:24 MDM - Back Pain/Injury Medical Decision Making Patient had surgery just over a week ago. She is confused and her history was questionable as far as its accuracy. Her arrived later and was able to tell me that she has had increasing weakness. He said she cannot get up to the bedside commode without full assistance from him. He says that after her back surgery she had gone home but then had to be readmitted for increasing pain in her left leg. This pain is a nerve type pain that comes and goes. She did have an episode while in the emergency department today as well. Morphine helped with that pain. She does have complaints of numbness in her feet which she says is new. Her said the left leg pain was something she had before surgery but it seems like it might be worse. The leg weakness is definitely new. I attempted to reach Dr. Youssef but he is out of town. Due to the patient's elevated white blood cell count and concerning symptoms I did order an MRI with contrast. This showed significant spinal stenosis which was present prior to surgery. There is significant edema around the surgical area which is not surprising at this point however infection could have a similar appearance. She is not febrile. This was rechecked several times in the department. Her white blood cell count is elevated which could be from steroids but she has been off them for several days at least. Given her inability to move with her leg weakness and her 's inability to care for her at home she will need to be admitted. I spoke to Dr. Godinez on-call for orthopedics. She does not have spine privileges and cannot help to take care of this patient if she is admitted here. I discussed this with the patient and her and they are willing to be transferred to a facility that does have spine surgery capability. It is not clear whether this is infection or just edema related to the recent surgery. Both [facility] in [place] refused the patient. [facility] in [place] did accept this patient in transfer. The patient has continued to have some intermittent numbness and pain in her left leg particularly. This resolves with morphine or sometimes with no intervention. Labs 07/20/24 06:50 07/20/24 06:50 Radiology Impressions Chest X-Ray 07/20/24 06:40 IMPRESSION: No acute findings. KUB X-Ray 07/20/24 06:40 IMPRESSION: No acute findings. Head CT 07/20/24 06:41 IMPRESSION: No acute intracranial abnormality. Lumbar Spine MRI 07/20/24 12:35 IMPRESSION: Motion limited study. 1. Multilevel degenerative changes of the lumbar spine as outlined above with severe central canal stenosis at L3-L4 and L4-L5 with compression of the roots of the cauda equina. Recommend neurosurgical/orthopedic spine consultation. 2. Postsurgical changes are noted with left L3 and L4 hemilaminectomies. Associated soft tissue edema and enhancement noted which may be postoperative in nature. Infection cannot be excluded. Recommend clinical correlation and follow-up imaging as clinically warranted. 3. Redemonstration of L4 compression deformity. There is associated edema which may be related to cement augmentation, however, acute fracture cannot be excluded. Recommend clinical correlation. 4. Extensive edema is noted in the bilateral sacral ala concerning for sacral insufficiency fractures. Laboratory Results WBC 21.46 10^3/uL (3.29-11.43) H 07/20/24 06:50 RBC 3.09 10^6/uL (3.85-5.65) L 07/20/24 06:50 Hgb 9.90 g/dL (11.27-16.99) L 07/20/24 06:50 Hct 30.0 % (36-47) L 07/20/24 06:50 MCV 97.1 fl (85-98) 07/20/24 06:50 MCH 32.0 pg (27-33) 07/20/24 06:50 MCHC 33.0 g/dL (30-55) 07/20/24 06:50 RDW 14.7 % (12.1-15.1) 07/20/24 06:50 Plt Count 422 10^3/cmm (157-399) H 07/20/24 06:50 MPV 10.8 fL (7.4-10.4) H 07/20/24 06:50 Neut % (Auto) 50.2 % 07/20/24 06:50 Lymph % (Auto) 11.6 % 07/20/24 06:50 [place] % (Auto) 32.6 % 07/20/24 06:50 Eos % (Auto) 3.4 % 07/20/24 06:50 Baso % (Auto) 0.1 % 07/20/24 06:50 Neut # (Auto) 10.78 10^3/uL (1.8-7.7) H 07/20/24 06:50 Lymph # (Auto) 2.5 10^3/uL (0.8-4.8) 07/20/24 06:50 [place] # (Auto) 7.0 10^3/uL (0.2-0.9) H 07/20/24 06:50 Eos # (Auto) 0.7 10^3/uL (0.0-0.8) 07/20/24 06:50 Baso # (Auto) 0.0 10^3/uL (0.0-0.1) 07/20/24 06:50 Nucleated RBC % (auto) 0 % 07/20/24 06:50 Nucleated RBCs # 0.0 /100WBC 07/20/24 06:50 ESR 23 mm/hr (0-15) H 07/20/24 06:50 Sodium 134 mmol/L (136-145) L 07/20/24 06:50 Potassium 3.7 mmol/L (3.5-5.1) 07/20/24 06:50 Chloride 102 mmol/L (98-107) 07/20/24 06:50 Carbon Dioxide 22 mmol/L (22-29) 07/20/24 06:50 Anion Gap 13.7 (5-19) 07/20/24 06:50 BUN 11 mg/dL (8-23) 07/20/24 06:50 Creatinine 0.7 mg/dL (0.5-0.9) 07/20/24 06:50 GFR Calculation Not Reportable 07/20/24 06:50 Glucose 95 mg/dL (65-115) 07/20/24 06:50 Calculated Osmolality 277 mOsm/kg (285-295) L 07/20/24 06:50 Lactic Acid 1.4 mmol/L (0.5-2.2) 07/20/24 06:50 Calcium 9.1 mg/dL (8.5-10.5) 07/20/24 06:50 Magnesium 1.9 mg/dL (1.7-2.3) 07/20/24 06:50 Total Bilirubin 0.4 mg/dL (0.15-1.2) 07/20/24 06:50 AST 16 U/L (0-32) 07/20/24 06:50 ALT 10 U/L (0-33) 07/20/24 06:50 Alkaline Phosphatase 163 U/L (35-105) H 07/20/24 06:50 C-Reactive Protein 43.6 mg/L (0.0-4.9) H 07/20/24 06:50 Total Protein 7.1 g/dL (6.6-8.7) 07/20/24 06:50 Albumin 3.9 g/dL (3.5-5.2) 07/20/24 06:50 Globulin 3.2 g/dL (1.3-4.6) 07/20/24 06:50 Urine Color Yellow (Yellow) 07/20/24 06:50 Urine Appearance Cloudy (CLEAR) A 07/20/24 06:50 Urine pH 7.5 (5-7) 07/20/24 06:50 Ur Specific [place] 1.016 (1.005-1.030) 07/20/24 06:50 Urine Protein 1+ (Negative) A 07/20/24 06:50 Urine Glucose (UA) Negative (Normal) 07/20/24 06:50 Urine Ketones 1+ (Negative) H 07/20/24 06:50 Urine Blood Negative (Negative) 07/20/24 06:50 Urine Nitrate Negative (Negative) 07/20/24 06:50 Urine Bilirubin Negative (Negative) 07/20/24 06:50 Urine Urobilinogen 1.0 mg/dL (Negative) 07/20/24 06:50 Ur Leukocyte Esterase Negative (Negative) 07/20/24 06:50 Urine RBC 0-2 /hpf (0-2) 07/20/24 06:50 Urine WBC 0-5 /hpf (0-5) 07/20/24 06:50 Ur Squamous Epith Cells 0-5 /hpf (0-5) 07/20/24 06:50 Amorphous Sediment Not Reportable 07/20/24 06:50 Urine Bacteria None seen /hpf (NONE) 07/20/24 06:50 Hyaline Casts 2.46 /lpf 07/20/24 06:50 All radiology interpretation(s) finalized by discharge Discharge Plan Discharge Patient Disposition: Xfer Short-Term Hosp Clinical Impression: History of chronic myeloid leukemia, Acute postoperative pain, Status post lumbar laminectomy, Lumbar radiculopathy, Acute confusion, Constipation Condition: Stable Referrals: Sandra Platt MD [Primary Care Provider] - Coding Level of Care Code 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
[2024-07-20 07:22] LABS: Erythrocyte Sedimentation Rate 23 mm/hr (0-15)
[2024-07-20 07:23] LABS: Lactic Sepsis W/Reflex 1.4 mmol/L (0.5-2.2)
[2024-07-20 07:25] LABS: Bilirubin Urine Negative (Negative); Blood Urine Negative (Negative); Glucose Urine UA Negative (Normal); Ketones Urine 1+ (Negative); Leukocyte Esterase Urine Negative (Negative); Nitrate Urine Negative (Negative); Protein Urine 1+ (Negative); Specific Gravity, Urine 1.016 (1.005-1.030); Urine Appearance Cloudy (CLEAR); Urine Color Yellow (Yellow); pH Urine 7.5 (5-7)
[2024-07-20 07:28] LABS: Add Urine Microscopic? YES; Bacteria Urine None Seen /hpf; C Reactive Protein 43.6 mg/L (0.0-4.9); Hyaline Casts Urine 2.46 /lpf; RBC Urine 0-2 /hpf (0-2); Squamous Epithelial Cell Urine 0-5 /hpf (0-5); WBC Urine 0-5 /hpf (0-5)
[2024-07-20] MEDS: sodium chloride 0.9% 1,000 ML 999 ML IV (08:02)
--- NOTE | 2024-07-20 12:35 | MRR_ITS ---
PROCEDURE INFORMATION: Exam: MR Lumbar Spine Without and With Contrast Exam date and time: 07/20/2024 1:11 PM Age: 79 years old Clinical indication: Weakness; Low back pain; Prior surgery; Surgery date: <1 month; Surgery type: Lumbar 13 days ago; Additional info: Post op elevated wbc, leg weakness TECHNIQUE: Imaging protocol: Magnetic resonance imaging of the lumbar spine without and with contrast. Contrast material: MULTIHANCE; Contrast volume: 15 ml; Contrast route: INTRAVENOUS (IV); COMPARISON: CT lumbar spine w con [id number] 07/12/2024 9:43 PM FINDINGS: Limitations: Suboptimal evaluation of multiple sequences secondary to patient motion. Bones/joints: Grade 1 anterolisthesis of L4 on L5 measuring up to 0.4 cm. Stable appearance to a L4 compression deformity with up to 30% loss in height. There is associated edema and enhancement which may be related to cement augmentation, however, acute fracture cannot be excluded. Redemonstration of left L3 and L4 hemilaminectomies. Moderate disc space narrowing at L5-S1. Hemangioma within the left side of the L5 vertebral body measuring up to 2.4 cm. Bilateral sacral alar edema raising concern for sacral insufficiency fractures. Spinal cord: The conus terminates at the T12-L1 level. No abnormal intrathecal enhancement. L1-L2: Broad concentric disc bulge and bilateral facet arthropathy contributing to moderate central canal stenosis. Mild bilateral neuroforaminal narrowing. L2-L3: Broad concentric disc bulge and bilateral facet arthropathy contributing to mild central canal stenosis. Minimal bilateral neuroforaminal narrowing. L3-L4: Broad concentric disc bulge and bilateral facet arthropathy contributing to severe central canal stenosis. Moderate bilateral neuroforaminal narrowing. L4-L5: Broad concentric disc bulge and bilateral facet arthropathy contributing to severe central canal stenosis. Moderate bilateral neuroforaminal narrowing. L5-S1: Broad concentric disc bulge and bilateral facet arthropathy contributing to mild central canal stenosis. Moderate bilateral neuroforaminal narrowing. Soft tissues: Edema enhancement is seen around the L3 and L4 hemilaminectomy sites. Findings may be related to recent surgery. Infection cannot be excluded. Recommend clinical correlation and follow-up imaging as clinically warranted. MR/MR lumbar spine wo/w con [id number] IMPRESSION: Motion limited study. 1. Multilevel degenerative changes of the lumbar spine as outlined above with severe central canal stenosis at L3-L4 and L4-L5 with compression of the roots of the cauda equina. Recommend neurosurgical/orthopedic spine consultation. 2. Postsurgical changes are noted with left L3 and L4 hemilaminectomies. Associated soft tissue edema and enhancement noted which may be postoperative in nature. Infection cannot be excluded. Recommend clinical correlation and follow-up imaging as clinically warranted. 3. Redemonstration of L4 compression deformity. There is associated edema which may be related to cement augmentation, however, acute fracture cannot be excluded. Recommend clinical correlation. 4. Extensive edema is noted in the bilateral sacral ala concerning for sacral insufficiency fractures.
[2024-07-20] MEDS: morphine 4 mg/mL SDV 1 mL IVP ×2 (12:55→20:08)
[2024-07-20] MEDS: ondansetron 2 mg/ML SDV 2 mL 4 MG IVP (12:55)
[2024-07-20] MEDS: gadobenate dimeglumine 20 mL vial IV (13:44)
== END 2024-07-20 20:11 | disposition short-term general hospital (02) ==
PROVIDERS: Emergency Provider Emergency Medicine; PCP Family Medicine
DX: M54.16 Radiculopathy, lumbar region (principal); R41.0 Disorientation, unspecified; K59.00 Constipation, unspecified; G89.18 Other acute postprocedural pain; Z85.6 Personal history of leukemia
CPT/HCPCS: 70450; 71045; 72158; 74018; 80053; 81001; 83605; 83735; 85025; 85651; 86140; 87040; 96361; 96374; 96375; 96376; 99285; J2270; J2405; J7030

== ENCOUNTER 2024-08-08 14:40 | Outpatient (CLI) | payer MEDICARE, OTHER, SELFPAY ==
[2024-08-08 15:23] LABS: Vancomycin Trough 16.3 ug/mL (10-15)
== END 2024-08-08 14:41 | disposition home or self-care (01) ==
PROVIDERS: PCP Family Medicine; Visit Provider Internal Medicine
DX: M46.36 Infection of intervertebral disc (pyogenic), lumbar region (principal); M99.73 Connective tissue and disc stenosis of intervertebral foramina of lumbar region; C93.11 Chronic myelomonocytic leukemia, in remission; K21.9 Gastro-esophageal reflux disease without esophagitis; I50.9 Heart failure, unspecified; E56.9 Vitamin deficiency, unspecified
CPT/HCPCS: 80202

== ENCOUNTER 2024-08-13 13:45 | Outpatient (CLI) | payer MEDICARE, OTHER, SELFPAY ==
[2024-08-13 14:21] LABS: Vancomycin Trough 20.3 ug/mL (10-15)
== END 2024-08-13 13:46 | disposition home or self-care (01) ==
LOC: LAB 13:47
PROVIDERS: PCP Family Medicine; Visit Provider Internal Medicine
DX: M46.36 Infection of intervertebral disc (pyogenic), lumbar region (principal)
CPT/HCPCS: 80202

== ENCOUNTER → 2024-08-14 16:24 | Outpatient (BNVA) | payer MEDICARE, OTHER, SELFPAY | PROVIDERS: PCP Family Medicine; Visit Provider Orthopaedic Surgery | DX: M25.559 Pain in unspecified hip (principal); M54.9 Dorsalgia, unspecified; Z98.890 Other specified postprocedural states | CPT/HCPCS: 72100; 73523; 99024 ==

== ENCOUNTER 2024-08-22 13:23 | Outpatient (CLI) | payer MEDICARE, OTHER, SELFPAY ==
--- NOTE | 2024-08-22 13:45 | MRR_ITS ---
PROCEDURE INFORMATION: Exam: MR Lumbar Spine Without Contrast Exam date and time: 08/22/2024 1:49 PM Age: 79 years old Clinical indication: Low back pain; Prior surgery; Surgery date: 6+ months; Surgery type: Lumbar surgery, kyphoplasty; Patient HX: HX of leukemia TECHNIQUE: Imaging protocol: Magnetic resonance imaging of the lumbar spine without contrast. COMPARISON: MR lumbar spine wo con* [id number] 07/20/2024 1:11 PM FINDINGS: Bones/joints: Heterogeneous T1 weighted signal of the bone marrow. Stable compression deformity of the L4 vertebral body with estimated loss of height of 30%. Post cement augmentation of the L4 vertebral body. There is interval decrease in the bone marrow edema in the L4 vertebral body. No progression of loss of height. Redemonstrated the bilateral vertical sacral insufficiency fractures with transverse component involving S2, partially assessed. There is a left L5 vertebral body hemangioma. Spinal cord: The conus terminates at T12-L1 level. No abnormal spinal cord signal. L1-L2: Similar posterior disc bulge causing mild thecal sac compression but no significant neural foraminal stenosis. Bilateral facet joint arthropathy. L2-L3: Similar posterior disc bulge with bilateral facet joint arthropathy and ligamentum flavum hypertrophy causing mild thecal sac compression and minimal narrowing of bilateral neural foramina. L3-L4: Similar posterior osteophyte disc complex with bilateral facet joint arthropathy and ligamentum flavum hypertrophy contributing to severe thecal sac compression and moderate narrowing of bilateral neural foramina. Post left hemilaminectomy. L4-L5: There is bilateral facet joint arthropathy at L4-L5 with mild anterolisthesis of L4 over L5. Post left hemilaminectomy. Posterior disc bulge with bilateral facet joint arthropathy causing severe thecal sac compression and moderate narrowing of bilateral neural foramina. L5-S1: Posterior disc bulge with bilateral facet joint arthropathy but no significant thecal sac compression. Moderate narrowing of bilateral neural foramina. Soft tissues: Unremarkable. MR/MR lumbar spine wo con* [id number] IMPRESSION: 1. Stable multilevel degenerative disease. 2. Similar sacral insufficiency fractures and L4 vertebral body fracture with no progression of the loss of height. 3. Post left L3 and L4 hemilaminectomies with mild decrease in the soft tissue edema, postop.
--- NOTE | 2024-08-22 14:30 | MRR_ITS ---
PROCEDURE INFORMATION: Exam: MR Pelvis Without Contrast Exam date and time: 08/22/2024 2:15 PM Age: 79 years old Clinical indication: Hip pain and pelvic pain; Bilateral; Prior surgery; Surgery date: 6+ months; Surgery type: Lumbar surgery, kyphoplasty; Patient HX: Low back pain and hip pain, back pain improving, hip pain worsening, no known injury. HX of leukemia TECHNIQUE: Imaging protocol: Magnetic resonance imaging of the pelvis without contrast. COMPARISON: CT abdomen pelvis w con* [id number] 06/24/2024 11:11 AM FINDINGS: Intestine: The visualized large and small bowel are grossly unremarkable. Intraperitoneal space: Mild free pelvic fluid. No gross free intraperitoneal air. Urinary bladder: The bladder is unremarkable. Reproductive: The uterus and adnexa are grossly unremarkable. Lymph nodes: No gross lymphadenopathy is appreciated. Bones/joints: Bilateral sacral insufficiency fractures with transverse component at S2. A compression fracture of L4 is similar to prior. Please see dedicated lumbar MRI for further assessment. The bone marrow is diffusely low in attenuation on the T1 sequence compatible with history of leukemia. Probable hemangioma in the L5 vertebral body. Soft tissues: Strains of the iliacus muscles. The hamstring tendons are symmetric. Subcutaneous edema posterior to the sacrum. MR/MR pelvis wo con* [id number] IMPRESSION: 1. Bilateral sacral insufficiency fractures with transverse component at S2. 2. Strains of the iliacus muscles. 3. A compression fracture of L4 is similar to prior. Please see dedicated lumbar MRI for further assessment. 4. The bone marrow is diffusely low in attenuation on the T1 sequence compatible with history of leukemia. 5. Mild free pelvic fluid. 6. Subcutaneous edema posterior to the sacrum.
== END 2024-08-22 13:24 | disposition home or self-care (01) ==
LOC: RAD 13:23
PROVIDERS: PCP Family Medicine; Visit Provider Orthopaedic Surgery
DX: S32.110A Nondisplaced Zone I fracture of sacrum, initial encounter for closed fracture (principal); S39.013A Strain of muscle, fascia and tendon of pelvis, initial encounter; S32.040A Wedge compression fracture of fourth lumbar vertebra, initial encounter for closed fracture; R22.2 Localized swelling, mass and lump, trunk; X58.XXXA Exposure to other specified factors, initial encounter
CPT/HCPCS: 72148; 72195

== ENCOUNTER 2024-08-22 16:41 | Emergency (ER) | payer MEDICARE, OTHER, SELFPAY ==
[2024-08-22 16:59] VITALS: BP 144/75; PULSE 100; RESP 18; TEMP 36.8; O2SAT 99
[2024-08-22 21:01] VITALS: BP 150/86; PULSE 116; O2SAT 98
[2024-08-22] MEDS: vancomycin 1,250 MG/250 ML PIGGYBACK 166.67 MG IV (21:13)
--- NOTE | 2024-08-22 21:26 | W.ED.GENADLT ---
Documented by User: OSVALDO Madison 08/22/24 21:31 HPI - General Adult General: Chief complaint: General Medical Stated complaint: picc line issues Time Seen by Provider: 08/22/24 19:58 Source: patient Mode of arrival: ambulatory Limitations: no limitations History of Present Illness: Patient is an 79-year-old female who presents the emergency department with complaint about PICC line. She states that she is currently being treated with 6 weeks of IV antibiotics due to discitis, and her PICC line has been not flushing. She this has happened once in the past where they had to inject heparin and clear the line, but she has never had to have it replaced. She is not reporting any symptoms, states that she takes Vanco every 18 hours and ceftriaxone every 12 hours. She is due to take her vancomycin and this is concerning her that she has not taken it yet. MD complaint: PICC line complaint Associated symptoms: Deny chest pain, dyspnea, headache(s), nausea, rash, palpitations or vomiting Related Data Home Medications Medication Instructions Recorded Confirmed clopidogrel 75 mg tablet 75 mg PO DAILY 10/25/23 08/14/24 ruxolitinib 10 mg tablet (Jakafi) 10 mg PO BID 10/25/23 08/14/24 Folic Acid Vitamin B9 1,000 mg PO DAILY 03/10/24 08/14/24 Iron 36 mg plus VC 36 mg PO DAILY 03/10/24 08/14/24 acetaminophen 500 mg tablet 500 mg PO Q6H PRN Pain 03/10/24 08/14/24 (Tylenol Extra Strength) avmacol with myrosimax 1 tab PO DAILY 03/10/24 08/14/24 calcium carbonate 1,200 mg PO BID 03/10/24 08/14/24 carica papaya (Papaya Enzyme 1 tab PO TID 03/10/24 08/14/24 tablet) cholecalciferol (vitamin D3) 50 50 mcg PO DAILY 03/10/24 08/14/24 mcg (2,000 unit) capsule clobetasol 0.05 % scalp solution 1 applic topical DAILY 03/10/24 08/14/24 cranberry 500 mg capsule 2,000 mg PO DAILY 03/10/24 08/14/24 docusate sodium 100 mg capsule 100 mg PO DAILY PRN Constipation 03/10/24 08/14/24 (Colace) [id number] C-Mn 1 cap PO BID 03/10/24 08/14/24 capsule (Glucosamine-Chondroitin Complex capsule) ibuprofen 200 mg tablet 200 mg PO Q6H PRN Pain 03/10/24 08/14/24 ketoconazole 2 % shampoo 1 applic topical Q14D PRN Itching 03/10/24 08/14/24 loratadine 10 mg tablet (Allergy 10 mg PO DAILY 03/10/24 08/14/24 Relief (loratadine)) magnesium 250 mg tablet 500 mg PO DAILY 03/10/24 08/14/24 multivitamin 1 tab PO DAILY 03/10/24 08/14/24 turmeric 400 mg capsule 800 mg PO DAILY 03/10/24 08/14/24 vitamin B complex 1 cap PO DAILY 03/10/24 08/14/24 zinc acetate 50 mg (zinc) capsule 30 mg PO DAILY 03/10/24 08/14/24 (Galzin) oxybutynin chloride 5 mg 5 mg PO DAILY 07/10/24 08/14/24 tablet,extended release 24 hr ruxolitinib 10 mg tablet (Jakafi) 10 mg PO DAILY 07/11/24 08/14/24 Previous Rx's Medication Instructions Recorded sulfamethoxazole 800 1 tab PO BID 7 days #14 tabs 04/03/24 mg-trimethoprim 160 mg tablet (Bactrim DS) cyclobenzaprine 5 mg tablet 5 mg PO TID PRN muscle spasm 7 07/18/24 days #21 tabs Allergies Allergy/AdvReac Type Severity Reaction Status Date / Time Tetanus Vaccines and Toxoid Allergy Unknown Verified 08/14/24 16:14 Predisone Allergy Intermediate confusion Uncoded 08/14/24 16:14 Review of Systems General: Reports: 10 or more systems reviewed and unremarkable except in HPI and below Const: Reports: other (PICC line complaint); Denies: fever(s), chills or fatigue Eyes: Denies: change in vision ENMT: Denies: throat pain, ear or mastoid pain or nasal discharge Card: Denies: chest pain, palpitations, swelling of feet/ankles or lightheadedness Resp: Denies: dyspnea, productive cough or wheezing GI: Denies: abdominal pain, nausea, vomiting, diarrhea or constipation : Denies: flank pain, difficulty voiding, dysuria or urinary frequency Musc: Denies: neck pain, back pain or joint pain Skin/Breast: Denies: rash Neuro: Denies: headache(s), numbness in extremities or weakness in extremities PFSH ED PFSH: Medical History (Updated 08/22/24 @ 21:24 by OSVALDO Madison) History of chronic myeloid leukemia FH: total knee replacement Surgical History (Updated 07/20/24 @ 16:31 by Carline Alejandra MD) H/O tubal ligation History of appendectomy 1965 Family History Mother Diabetes Hypertension Sister CAD (coronary artery disease) Heart disease Hypertension Diabetes Father Lymphoma Brother Hypertension Denies family history of Colon cancer Ovarian cancer Hyperlipidemia Breast cancer Uterine cancer Thyroid disease Stroke Social History Smoking and tobacco/nicotine status: unknown if used tobacco/nicotine Alcohol intake: never Substance/Drug Use: never Household members: spouse Marital status: Marital status details: 18 Number of children: 4 Current 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 status: retired [employer]: [employer] Physical Exam Const: COMMON NORMALS: no acute distress and no limitations GENERAL APPEARANCE: cooperative, comfortable and well developed ORIENTATION/CONSCIOUSNESS: Yes awake HENMT: COMMON NORMALS: normocephalic, atraumatic and hearing grossly normal bilaterally HEAD & SCALP: normocephalic and atraumatic Eye: COMMON NORMALS: Equal, round and reactive pupils present, EOMs intact bilaterally and conjunctivae normal CONJUNCTIVA: Yes conjunctivae normal PUPIL: Yes Equal, round and reactive pupils present Neck/C-Spine: COMMON NORMALS: full ROM, supple and no JVD Resp: COMMON NORMALS: normal respiratory effort, No retractions, No use of accessory muscles and clear to auscultation bilaterally AUSCULTATION: clear to auscultation bilaterally Cardio: COMMON NORMALS: no JVD, regular rate, regular rhythm, No clicks present (Cardio), No murmurs present (Cardio) and No rub (Cardio) RATE: regular rate RHYTHM: regular rhythm GI: COMMON NORMALS: Normal to inspection, nondistended, normoactive bowel sounds present, Soft to palpation and non-tender AUSCULTATION: Yes normoactive bowel sounds PALPATION: Yes Soft to palpation RECTAL EXAM: deferred Extremity: NARRATIVE EXTREMITY EXAM: PICC line to right upper extremity Skin: COMMON NORMALS: no rashes or lesions noted GENERAL SKIN EXAM: no rashes or lesions noted Course Vital Signs: Vital signs: Vital Signs Temperature 98.2 F 08/22/24 16:59 Pulse Rate 118 H 08/22/24 23:04 Respiratory Rate 18 08/22/24 16:59 Blood Pressure 133/68 08/22/24 23:04 Pulse Oximetry 97 08/22/24 23:04 Oxygen Delivery Me thod Room Air 08/22/24 23:00 MDM - General Adult Medical Decision Making Patient presents with issue with PICC line, had heparin injected once in the past, though this was through provider that she is more well-known to. Here we placed a line and gave her her dose of bank, and set up an appointment with her for more appropriate PICC line replacement with GI on Sunday. Patient agrees with this plan, did give return precautions. No radiology studies performed this visit Discharge Plan Discharge Patient Disposition: Home Clinical Impression: Occluded PICC line Qualifiers: Encounter type: initial encounter Qualified Code(s): T82.898A - Other specified complication of vascular prosthetic devices, implants and grafts, initial encounter Condition: Stable Prescriptions: No Action clopidogrel 75 mg tablet 75 mg PO DAILY Hold Instructions: Resume on 07/14/24. Jakafi 10 mg tablet 10 mg PO BID multivitamin Tablet 1 tab PO DAILY Papaya Enzyme Tablet 1 tab PO TID Rx Instructions: administer with meals ketoconazole 2 % shampoo 1 applic topical Q14D PRN (Reason: Itching) Galzin 50 mg (zinc) capsule 30 mg PO DAILY Glucosamine-Chondroitin Complx Capsule 1 cap PO BID acetaminophen [Tylenol Extra Strength] 500 mg tablet 500 mg PO Q6H PRN (Reason: Pain) calcium carbonate 600 mg calcium (1,500 mg) tablet 1,200 mg PO BID ibuprofen 200 mg tablet 200 mg PO Q6H PRN (Reason: Pain) Hold Instructions: Resume on 07/14/24. docusate sodium [Colace] 100 mg capsule 100 mg PO DAILY PRN (Reason: Constipation) magnesium 250 mg tablet 500 mg PO DAILY clobetasol 0.05 % solution 1 applic topical DAILY loratadine [Allergy Relief (loratadine)] 10 mg tablet 10 mg PO DAILY cranberry 500 mg capsule 2,000 mg PO DAILY Rx Instructions: administer with meals vitamin B complex Capsule 1 cap PO DAILY cholecalciferol (vitamin D3) 50 mcg (2,000 unit) capsule 50 mcg PO DAILY turmeric 400 mg capsule 800 mg PO DAILY Folic Acid Vitamin B9 1,000 mg 1,000 mg PO DAILY Iron 36 mg plus VC 36 mg PO DAILY Rx Instructions: with 4 oz prune juice avmacol with myrosimax 1 tab PO DAILY Rx Instructions: daily with meal sulfamethoxazole-trimethoprim [Bactrim DS] 800-160 mg tablet 1 tab PO BID 7 Days Qty: 14 0RF Rx Instructions: x 7 days starting 07/08/2024 cyclobenzaprine 5 mg tablet 5 mg PO TID PRN (Reason: muscle spasm) 7 Days Qty: 21 0RF oxybutynin chloride 5 mg tablet extended release 24hr 5 mg PO DAILY Rx Instructions: TAKE 1 TABLET BY MOUTH DAILY Jakafi 10 mg tablet 10 mg PO DAILY Discharge Orders: Discharge ED (Routine); Ordered 08/22/24 Ordered By: Blade Mckenzie Referrals: Sandra Platt MD [Primary Care Provider] - Patient Instructions: Pain Management Activity Restrictions/Additional Instructions: Follow-up with GI on Sunday to have new PICC line placed, await call to get a time for this appointment. Return with any new or concerning symptoms you may have. Coding Level of Care Code ED Strategy Planning Consultant for [facility] Documented by User: Jose Ramon Rea DO 08/23/24 15:44 HPI - General Adult General: Chief complaint: General Medical Stated complaint: picc line issues Time Seen by Provider: 08/22/24 19:58 Related Data Home Medications Medication Instructions Recorded Confirmed clopidogrel 75 mg tablet 75 mg PO DAILY 10/25/23 08/14/24 ruxolitinib 10 mg tablet (Jakafi) 10 mg PO BID 10/25/23 08/14/24 Folic Acid Vitamin B9 1,000 mg PO DAILY 03/10/24 08/14/24 Iron 36 mg plus VC 36 mg PO DAILY 03/10/24 08/14/24 acetaminophen 500 mg tablet 500 mg PO Q6H PRN Pain 03/10/24 08/14/24 (Tylenol Extra Strength) avmacol with myrosimax 1 tab PO DAILY 03/10/24 08/14/24 calcium carbonate 1,200 mg PO BID 03/10/24 08/14/24 carica papaya (Papaya Enzyme 1 tab PO TID 03/10/24 08/14/24 tablet) cholecalciferol (vitamin D3) 50 50 mcg PO DAILY 03/10/24 08/14/24 mcg (2,000 unit) capsule clobetasol 0.05 % scalp solution 1 applic topical DAILY 03/10/24 08/14/24 cranberry 500 mg capsule 2,000 mg PO DAILY 03/10/24 08/14/24 docusate sodium 100 mg capsule 100 mg PO DAILY PRN Constipation 03/10/24 08/14/24 (Colace) [id number] C-Mn 1 cap PO BID 03/10/24 08/14/24 capsule (Glucosamine-Chondroitin Complex capsule) ibuprofen 200 mg tablet 200 mg PO Q6H PRN Pain 03/10/24 08/14/24 ketoconazole 2 % shampoo 1 applic topical Q14D PRN Itching 03/10/24 08/14/24 loratadine 10 mg tablet (Allergy 10 mg PO DAILY 03/10/24 08/14/24 Relief (loratadine)) magnesium 250 mg tablet 500 mg PO DAILY 03/10/24 08/14/24 multivitamin 1 tab PO DAILY 03/10/24 08/14/24 turmeric 400 mg capsule 800 mg PO DAILY 03/10/24 08/14/24 vitamin B complex 1 cap PO DAILY 03/10/24 08/14/24 zinc acetate 50 mg (zinc) capsule 30 mg PO DAILY 03/10/24 08/14/24 (Galzin) oxybutynin chloride 5 mg 5 mg PO DAILY 07/10/24 08/14/24 tablet,extended release 24 hr ruxolitinib 10 mg tablet (Jakafi) 10 mg PO DAILY 07/11/24 08/14/24 Previous Rx's Medication Instructions Recorded sulfamethoxazole 800 1 tab PO BID 7 days #14 tabs 04/03/24 mg-trimethoprim 160 mg tablet (Bactrim DS) cyclobenzaprine 5 mg tablet 5 mg PO TID PRN muscle spasm 7 07/18/24 days #21 tabs Allergies Allergy/AdvReac Type Severity Reaction Status Date / Time Tetanus Vaccines and Toxoid Allergy Unknown Verified 08/14/24 16:14 Predisone Allergy Intermediate confusion Uncoded 08/14/24 16:14 PFSH ED PFSH: Medical History (Updated 08/22/24 @ 21:24 by OSVALDO Madison) History of chronic myeloid leukemia FH: total knee replacement Surgical History (Updated 07/20/24 @ 16:31 by Carline Alejandra MD) H/O tubal ligation History of appendectomy 1965 Family History Mother Diabetes Hypertension Sister CAD (coronary artery disease) Heart disease Hypertension Diabetes Father Lymphoma Brother Hypertension Denies family history of Colon cancer Ovarian cancer Hyperlipidemia Breast cancer Uterine cancer Thyroid disease Stroke Social History Smoking and tobacco/nicotine status: unknown if used tobacco/nicotine Alcohol intake: never Substance/Drug Use: never Household members: spouse Marital status: Marital status details: 18 Number of children: 4 Current 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 status: retired [employer]: [employer] Vital Signs: Vital signs: Vital Signs Temperature 98.2 F 08/22/24 16:59 Pulse Rate 118 H 08/22/24 23:04 Respiratory Rate 18 08/22/24 16:59 Blood Pressure 133/68 08/22/24 23:04 Pulse Oximetry 97 08/22/24 23:04 Oxygen Delivery Me thod Room Air 08/22/24 23:00 MDM - General Adult Medical Decision Making Patient presents with issue with PICC line, had heparin injected once in the past, though this was through provider that she is more well-known to. Here we placed a line and gave her her dose of bank, and set up an appointment with her for more appropriate PICC line replacement with GI on Sunday. Patient agrees with this plan, did give return precautions. This patient was originally seen by Mr. Magaly PA-C. I agree with his history, evaluation, and treatment. Discharge Plan Discharge Patient Disposition: Home Clinical Impression: Occluded PICC line Qualifiers: Encounter type: initial encounter Qualified Code(s): T82.898A - Other specified complication of vascular prosthetic devices, implants and grafts, initial encounter Condition: Stable Prescriptions: No Action clopidogrel 75 mg tablet 75 mg PO DAILY Hold Instructions: Resume on 07/14/24. Jakafi 10 mg tablet 10 mg PO BID multivitamin Tablet 1 tab PO DAILY Papaya Enzyme Tablet 1 tab PO TID Rx Instructions: administer with meals ketoconazole 2 % shampoo 1 applic topical Q14D PRN (Reason: Itching) Galzin 50 mg (zinc) capsule 30 mg PO DAILY Glucosamine-Chondroitin Complx Capsule 1 cap PO BID acetaminophen [Tylenol Extra Strength] 500 mg tablet 500 mg PO Q6H PRN (Reason: Pain) calcium carbonate 600 mg calcium (1,500 mg) tablet 1,200 mg PO BID ibuprofen 200 mg tablet 200 mg PO Q6H PRN (Reason: Pain) Hold Instructions: Resume on 07/14/24. docusate sodium [Colace] 100 mg capsule 100 mg PO DAILY PRN (Reason: Constipation) magnesium 250 mg tablet 500 mg PO DAILY clobetasol 0.05 % solution 1 applic topical DAILY loratadine [Allergy Relief (loratadine)] 10 mg tablet 10 mg PO DAILY cranberry 500 mg capsule 2,000 mg PO DAILY Rx Instructions: administer with meals vitamin B complex Capsule 1 cap PO DAILY cholecalciferol (vitamin D3) 50 mcg (2,000 unit) capsule 50 mcg PO DAILY turmeric 400 mg capsule 800 mg PO DAILY Folic Acid Vitamin B9 1,000 mg 1,000 mg PO DAILY Iron 36 mg plus VC 36 mg PO DAILY Rx Instructions: with 4 oz prune juice avmacol with myrosimax 1 tab PO DAILY Rx Instructions: daily with meal sulfamethoxazole-trimethoprim [Bactrim DS] 800-160 mg tablet 1 tab PO BID 7 Days Qty: 14 0RF Rx Instructions: x 7 days starting 07/08/2024 cyclobenzaprine 5 mg tablet 5 mg PO TID PRN (Reason: muscle spasm) 7 Days Qty: 21 0RF oxybutynin chloride 5 mg tablet extended release 24hr 5 mg PO DAILY Rx Instructions: TAKE 1 TABLET BY MOUTH DAILY Jakafi 10 mg tablet 10 mg PO DAILY Discharge Orders: Discharge ED (Routine); Ordered 08/22/24 Ordered By: Blade Mckenzie Referrals: Sandra Platt MD [Primary Care Provider] - Patient Instructions: Pain Management Activity Restrictions/Additional Instructions: Follow-up with GI on Sunday to have new PICC line placed, await call to get a time for this appointment. Return with any new or concerning symptoms you may have. Coding Level of Care Code ED Strategy Planning Consultant for [facility]
[2024-08-22 23:00] VITALS: BP 133/68; PULSE 118; O2SAT 97
[2024-08-22 23:04] VITALS: BP 133/68; PULSE 118; O2SAT 97
== END 2024-08-22 23:07 | disposition home or self-care (01) ==
PROVIDERS: Emergency Provider Physician Assistant; PCP Family Medicine
DX: T82.898A Other specified complication of vascular prosthetic devices, implants and grafts, initial encounter (principal); Z79.02 Long term (current) use of antithrombotics/antiplatelets; X58.XXXA Exposure to other specified factors, initial encounter
CPT/HCPCS: 96365; 96366; 99284; J3370

== ENCOUNTER → 2024-08-25 08:42 | Day surgery (SDC) | payer MEDICARE, OTHER, SELFPAY ==
--- OUTSIDE RECORDS SUMMARY | 2024-08-25 07:00 | XMS_ITS ---
Author Name Unknown Organization [facility] Address [address] [place] [address] Care Team Providers Care Bid Clerk Name Role Phone Giulia Sandra Primary Care Provider UnavailNazanin Dee Unavailable [phone] Tony Bingham JR Unavailable [phone] Allergies Allergen (clinical drug ingredient) Drug/Non Drug Allergy documented on EMR Reaction Allergy Type Onset Date Status prednisone Prednisone Unknown Drug Allergy Activ e Substance with sulfonamide structure and antibacterial mechanism of action (substance) Sulfa Antibiotics Unknown Drug Allergy Active Results Component Value Reference Range Notes CBC w\ Auto Diff [id number] (Not yet reviewed by provider) Interpretation: Performing Lab: Notes/Report: Diagnosis Description: Infection following a procedure, other surgical site, initial encounter WBC 15.9 4.5-11.0 X10'3 RBC 3.10 4.00-5.20 X10'6 Hgb 9.8 12.0-16.0 G/DL Hct 31.1 36.0-46.0 % MCV 100.3 80.0-100.0 FL MCH 31.6 27.0-31.0 PG MCHC 31.5 31.0-37.0 G/DL Platelet 362 150-400 X10'3 RDW-SD 55.4 35.0-49.0 FL RDW-CV 15.3 12.2-15.6 % MPV 10.8 9.2-12.0 FL Neutro Auto% 39.7 40.0-70.0 % Lymph Auto% 21.9 22.0-44.0 % [place] Auto% 25.6 3.0-7.0 % Eos Auto% 11.5 2.0-4.0 % Baso Auto% 0.2 0.0-1.0 % Imm Gran% 1.1 .0-.4 % Neutro Abs 6.32 .80-7.70 Absolute Neutrophil Count 6320 Lymph Abs 3.48 .10-4.10 [place] Abs 4.07 .20-1.00 Eos Abs 1.83 .00-.40 Baso Abs .03 .00-.20 Imm Gran Abs .18 .00-.10 NRBC# .00 .00-.20 X10'3 NRBC% .00 .00-.20 /100 int act WBC's Comprehensive Metabolic Pane l [id number] (Not yet reviewed by provider) Interpretation: Performing Lab: Notes/Report: Diagnosis Description: Infection following a procedure, other surgical site, initial encounter Glucose Serum 124 71-110 MG/DL Testing perfor med at [facility], [address] [place] [address] [place] [address]. CLIA ID#: [id number] BUN 18 7-21 MG/DL Creat .65 .51-1.17 MG/DL R-tvgimw-h-benzoquinone imine (NAPQI) is a metabolite of acetaminophen, NAPQI concentrations of apparoximately 10 mg/L correlation to toxic levels of acetaminophen demonstrates a greater than or equil to 10% change in results. NAPQI concentrations greater than this may lead to falsely depressed results for patient samples. Use of this assay is not recommended for patients undergoing treatment with phenindione, due to the potential for falsely depressed results. GFR 88.9 Calculation per formed from GFR calculator provided by the [employer]. Glomerular Filtration rate(GRF) is the best overall index of kidney function. Normal GFR varies according to age,sex, body size, and declines with age. The [employer] recommends using the CKD-EPI Creatinine Equation(2021) to estimate GFR. BUN/Creat Ratio 27.7 12.0-20.0 % Total Protein 7.4 5.8-8.0 G/DL Albumin 4.6 3.2-4.8 G/DL Globulin 2.7 2.3-3.5 G/DL Alb/Glob 1.7 0.8-2.2 Calcium 9.9 8.7-10.4 MG/DL Sodium 138 136-145 MMOL/L Potassium 3.9 3.5-5.1 MMOL/L Chloride 103 98-107 MMOL/L CO2 23.8 20.0-31.0 MMOL/L Anion Gap 15 5-15 Alk Phos 152 46-116 Bili Total .3 .3-1.2 MG/DL Use of this ass ay is not recommended for patients undergoing treatment with eltrombopag due to the potential for falsely elevated results. AST/SGOT <8 15-37 UNIT/L ALT/SGPT 7 12-78 UNIT/L Osmo Serum,Calculated 289 280-300 MOSM/KG CRP [id number] (Not yet reviewed by provider) Interpretation: Performing Lab: Notes/Report: Diagnosis Description: Infection following a procedure, other surgical site, initial encounter CRP 1.14 .40-1.00 MG/DL REASON FOR VISIT [id number] 1 week f/u - Picc Line Medications Medication SIG (Take, Route, Frequency, Duration) Notes Start Date End Date Status Cyclobenzaprine HCl 5 MG 1 tablet at bed time as needed Orally TID 08/05/2024 Active Folic Acid 400 MCG 1 tablet Orally Once a day Active Furosemide 20 MG 1 tablet Orally Once a day Active Clobetasol & Clobetasol Emul 0.05 & 0.05 % as directed Externally Acti ve Clopidogrel Bisulfate 75 MG 1 tablet Ora lly Once a day Active Magnesium Gluconate 250 MG 1 tablet Oral ly Once a day 08/05/2024 Active Calcium Carbonate 600 MG 1 tablet with f ood Orally once daily Active oxyBUTYnin Chloride ER 5 MG 1 tablet Ora lly Once a day Active cefTRIAXone Sodium 2 GM as directed Injection Active Vancomycin HCl 2 GM as directed Intravenous Active Ketoconazole 2 % as directed Externally Active HYDROcodone-Acetaminophen 5-325 MG 1 tablet as needed Orally every 6 hrs Active Jakafi 10 MG 1 tablet Orally Twic e a day Active Social History Tobacco Use: Social History Observation Description Date Details (start date - stop date) Former Smoker NA - NA Tobacco Control (Standard) Question Answer Notes Tobacco use: Former smoker Vital Signs Temperature 96.5 degrees Fahrenheit 08/12/20 24 Blood pressure systolic 150 mm Hg 08/12/20 24 Blood pressure diastolic 82 mm Hg 024 Heart Rate 68 /min 08/12/2024 Respiratory Rate 18 /min 08/12/2024 Oximetry 96 % 08/12/2024 Encounters Encounter Location Date Provider Diagnosis [facility] Internal Medicine & Infectious Disease [address] [place] [address], [place] [address] 08/12/2024 Tony Bingham Osteomyelitis of vertebra M46.20 and Infection following a procedure, other surgical site, initial encounter T81.49XA Assessments Encounter Date Diagnosis (ICD Code) Assessment Notes Treat ment Notes Treatment Clinical Notes 08/12/2024 Osteomyelitis of vertebra (ICD-10 - M46.20) 08/12/2024 Infection following a procedure, other surgical site, initial encounter (ICD-10 - T81.49XA) Plan Of Treatment Pending Test Test Name Order Date CBC w\ Auto Diff [id number] 08/12/2024 Comprehensive Metabolic Panel 65850 07/23 CRP 17773 08/12/2024 Next Appt Details Follow Up: 1 Week, Reason: Provider Name:Tony sofia, 08/26/2024 01:30:00 PM, [address] [place] [address], [facility]], [place], [address], Provider Name:Tony sofia, 09/02/2024 02:30:00 PM, [address] [place] [address], [facility]], [place], [address], Provider Name:Tony sofia, 09/09/2024 01:45:00 PM, [address] [place] [address], [facility]], [place], [address], Provider Name:Tony Hinojosa Des sofia, 09/16/2024 01:45:00 PM, [address] [place] [address], [facility]], [place], [address], Progress Notes * Marizol CORTÉS MDOB:1944 (79 yo F)Acc No.[id number]:08/12/2024 Progress Notes Patient:?Marizol CORTÉS Provider:?Tony Bingham MD :1945???Age:79 Y???Sex:Female D ate:08/12/2024 Address:[address] [place], [place] [id number] Pcp:Sandra Platt Check Out:02:20 PM 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 She underwent a vertebroplasty and laminectomy 07-11-24.She had a compound L4 compression fracture but denies trauma or fall.? [place] were [place] [facility] revealed a low back infection. She does not have hardware in place. She has had improvement in her pain, but continues to experience pain in her lower lumbar area in her hips. She??is severely limited with her ROM.MRI is not available. She does have severe spinal stenosis ?She is currently staying at a nursing facility in [place].?There are no labs or records to review today.?She reports she has been receiving her IV medications in the facility. 08-12-24: Hospital follow up w/Dr. Bingham today.Feeling good, walking a few steps but not as good as she wants. * ROS:?General - Multi System:?Constitutional?Denies, fever, chills, weakness, fatigue, poor appetite, unexplained weight loss.?Ear, Nose, Mouth, Throat?Denies any ear pain, sore throat, sinus congestion, or nasal drainage.?Cardiovascular?Denies any recent chest pain, palpitations or syncope.?Respiratory?Denies any shortness of breath, cough, or hemoptysis.?Gastrointestinal?Denies heartburn, constipation, diarrhea, nausea, blood in stools, or abdominal pain.?Genitourinary?Denies dysuria, urinary frequency, or hematuria.?Musculoskeletal?Denies any joint pain or swelling, no recent trauma.?Integumentary?Denies any rashes, bruising, or skin changes.? * Medical History:? * Surgical History:?tonsillect denise appendectomy knee replacement Abdominal adhesion * Hospitalization/Major Diagno stic Procedure:?see above * Family History:?Father: dece ased 78 yrs, Cancer.?Mother: 76 yrs, Diabetes.? * Social History:?Tobacco Use:?Tobacco Control (Standard)?Tobacco use:?Former smoker * Medications:?TakingCalcium C arbonate 600 MG Tablet 1 tablet with food Orally once daily cefTRIAXone Sodium 2 GM Solution Reconstituted as directed Injection Clobetasol & Clobetasol Emul 0.05 & 0.05 % Miscellaneous as directed Externally Clopidogrel Bisulfate 75 MG Tablet 1 tablet Orally Once a day Cyclobenzaprine HCl 5 MG Tablet 1 tablet at bedtime as needed Orally TID Folic Acid 400 MCG Tablet 1 tablet Orally Once a day Furosemide 20 MG Tablet 1 tablet Orally Once a day HYDROcodone- Acetaminophen 5-325 MG Tablet 1 tablet as needed Orally every 6 hrs Jakafi 10 MG Tablet 1 tablet Orally Twice a day Ketoconazole 2 % Shampoo as directed Externally Magnesium Gluconate 250 MG Tablet 1 tablet Orally Once a day oxyBUTYnin Chloride ER 5 MG Tablet Extended Release 24 Hour 1 tablet Orally Once a day Vancomycin HCl 2 GM Solution Reconstituted as directed Intravenous Medication List reviewed and reconciled with the patientTaking Calcium Carbonate 600 MG Tablet 1 tablet with food Orally once daily Taking cefTRIAXone Sodium 2 GM Solution Reconstituted as directed Injection Taking Clobetasol & Clobetasol Emul 0.05 & 0.05 % Miscellaneous as directed Externally Taking Clopidogrel Bisulfate 75 MG Tablet 1 tablet Orally Once a day Taking Cyclobenzaprine HCl 5 MG Tablet 1 tablet at bedtime as needed Orally TID Taking Folic Acid 400 MCG Tablet 1 tablet Orally Once a day Taking Furosemide 20 MG Tablet 1 tablet Orally Once a day Taking HYDROcodone-Acetaminophen 5-325 MG Tablet 1 tablet as needed Orally every 6 hrs Taking Jakafi 10 MG Tablet 1 tablet Orally Twice a day Taking Ketoconazole 2 % Shampoo as directed Externally Taking Magnesium Gluconate 250 MG Tablet 1 tablet Orally Once a day Taking oxyBUTYnin Chloride ER 5 MG Tablet Extended Release 24 Hour 1 tablet Orally Once a day Taking Vancomycin HCl 2 GM Solution Reconstituted as directed Intravenous Medication List reviewed and reconciled with the patient * Allergies:?Prednisone: Aller gySulfa Antibiotics: Allergyno[Allergies Verified] Objective: * Vitals:?Temp:96.5F, BP:150/8 2mm Hg, HR:68/min, RR:18/min, Oxygen sat %:96%. * Examination: ???General Examination: ?GENERAL APPEARANCE:?alert, well hydrated, in no distress.?HEAD:?normocephalic, atraumatic.?HEART:?regular rate and rhythm, S1, S2 normal, no heaves, lifts or gallops. PMI at/near 5th left intercostal space at anterior axillary line.?LUNGS:?clear anteriorly and posteriorly.?CHEST:?atraumatic, no deformities, no pain to palpation.?ABDOMEN:?bowel sounds present, soft, nontender, nondistended.?NEUROLOGIC:?alert and oriented, cerebellar function normal, cognitive exam grossly normal, gait normal Low back;? wound completely healed.? Assessment: * Assessment: 1.?Osteomyelitis of vertebra - M46.20 (Primary)???2.?Infection following a procedure, other surgical site, initial encounter - T81.49XA??? 1. 79 yo white female with a history of CML, who presented from [place] where she presented with severe progressive back pain, elevated CRP, low grade fever and elevated WBC. 2. vertebroplasty and laminectomy 07-11-24. 3. Low back infection- no cultures are available for review 4.antibiotics: day #22Vancomycin, and rocephin.- duration of therapy determined by patient response, probably 6 weeks of IV therapy5. biggest obstacle iss placement CBC, CMP and CRP draw today LABS 24 W 20.5, CRP 4.39 --24 W 17.6, PARENT[employer] .74, CRP 1.59 Follow up: 1 week Plan: * Treatment: * Procedure Codes:? * Follow Up:?1 Week * Billing Information: * Visit Code:? 37821 Office Visit, Est Pt., Level 3. * Procedure Codes:? Care Plan Details* * Sign off status: Completed true * Provider:?Tony Bingham MD Date:?07/23 Generated for Sandip chen/Brooke/eTransmitting on:?08/25/2024 07:00 AM WIRE STRANDER History and Physical Notes * Examination Category Sub-Category Detail Notes General Examination GENERAL APPEARANCE: alert, w ell hydrated, in no distress HEAD: normocephalic, atrau matic HEART: regular rate and rhy thm, S1, S2 normal, no heaves, lifts or gallops. PMI at/near 5th left intercostal space at anterior axillary line CHEST: atraumatic, no defor mities, no pain to palpation LUNGS: clear anteriorly and posteriorly ABDOMEN: bowel sounds present , soft, nontender, nondistended NEUROLOGIC: alert and oriented, cerebellar function normal, cognitive exam grossly normal, gait normal Low back; wound completely healed
--- OUTSIDE RECORDS SUMMARY | 2024-08-25 07:00 | XMS_ITS ---
Author Name Unknown Organization [facility] Address [address] [place] [address] Care Team Providers Care Health Care Specialist Name Role Phone Sandra Platt Primary Care Provider UnavailNazanin Dee Unavailable [phone] Veronica Moses Unavailable [phone] REASON FOR VISIT s/p 07/20/2024 Encounters Encounter Location Date Provider Diagnosis [facility] [place] [address] [place] [address] 08/08/2024 Veronica Moses Plan Of Treatment Next Appt Details Provider Name:Tony Nunes kimberlyn, 08/26/2024 01:30:00 PM, [address], [address] [address], [place], [address], Provider Name:Tony Nunes kimberlyn, 09/02/2024 02:30:00 PM, [address], [place], [place], [address], Provider Name:Tony Nunes kimberlyn, 09/09/2024 01:45:00 PM, [facility] [address], [place] [address], [place], [address], Provider Name:Tony sofia, 09/16/2024 01:45:00 PM, [facility] [address], [address] [address], [place], [address], Progress Notes * Marizol CORTÉS MDOB:1944 (79 yo F)Acc No.[id number]:08/08/2024 Patient:?Marizol CORTÉS Provider:?ARTHUR Almodovar FNP :1945???Age:79 Y???Sex:Female D ate:08/08/2024 Address:[address] [place], [place] [id number] Pcp:Sandra Platt Subjective: * Chief Complaints: * ???1. S/p 07/20/2024. * Medical History:? Objective: * Vitals:? Assessment: Plan: * Treatment: Forms: * Billing Information: * Visit Code:? * Procedure Codes:? * Electronic signature of Tao Moses APRN on 08/25/2024 at 07:00 AM HEALTH NAVIGATOR Sign off status: Pending * Provider:?ARTHUR Almodovar FNP Date:? 08/08/2024 Generated for Sandip chen/Brooke/eTsarahitting on:?08/25/2024 07:00 AM HEALTH NAVIGATOR
--- OUTSIDE RECORDS SUMMARY | 2024-08-25 07:00 | XMS_ITS ---
Author Name Unknown Organization [facility] Address [address] [place] [address] Care Team Providers Care Project Manager Retail Name Role Phone Giulia Sandra Primary Care Provider UnavailNazanin Dee Unavailable [phone] Tony Bingham JR Unavailable [phone] Allergies Allergen (clinical drug ingredient) Drug/Non Drug Allergy documented on EMR Reaction Allergy Type Onset Date Status prednisone Prednisone Unknown Drug Allergy Activ e Substance with sulfonamide structure and antibacterial mechanism of action (substance) Sulfa Antibiotics Unknown Drug Allergy Active Results Component Value Reference Range Notes CBC w\ Auto Diff [id number] Reviewed date:08/19/2024 05:36:46 PM Interpretation: Performing Lab: Notes/Report: Diagnosis Description: Osteomyelitis of vertebra, site unspecified WBC 14.1 4.5-11.0 X10'3 RBC 3.02 4.00-5.20 X10'6 Hgb 9.5 12.0-16.0 G/DL Hct 29.7 36.0-46.0 % MCV 98.3 80.0-100.0 FL MCH 31.5 27.0-31.0 PG MCHC 32.0 31.0-37.0 G/DL Platelet 330 150-400 X10'3 RDW-SD 53.9 35.0-49.0 FL RDW-CV 14.9 12.2-15.6 % MPV 10.9 9.2-12.0 FL Neutro Auto% 32.8 40.0-70.0 % Lymph Auto% 21.0 22.0-44.0 % Dale Auto% 31.1 3.0-7.0 % Eos Auto% 13.7 2.0-4.0 % Baso Auto% 0.2 0.0-1.0 % Imm Gran% 1.2 .0-.4 % Neutro Abs 4.61 .80-7.70 Absolute Neutrophil Count 4610 Lymph Abs 2.97 .10-4.10 Dale Abs 4.39 .20-1.00 Eos Abs 1.94 .00-.40 Baso Abs .03 .00-.20 Imm Gran Abs .17 .00-.10 NRBC# .00 .00-.20 X10'3 NRBC% .00 .00-.20 /100 int act WBC's Comprehensive Metabolic Pane l [id number] Reviewed date:08/19/2024 05:36:49 PM Interpretation: Performing Lab: Notes/Report: Diagnosis Description: Osteomyelitis of vertebra, site unspecified Glucose Serum 123 71-110 MG/DL Testing perfor med at [facility], [address] [place] [address] [place] [address]. CLIA ID#: [id number] BUN 14 7-21 MG/DL Creat .62 .51-1.17 MG/DL V-qjfbvk-k-benzoquinone imine (NAPQI) is a metabolite of acetaminophen, [...] the potential for falsely depressed results. GFR 89.9 Calculation per formed from GFR calculator provided by the [employer]. Glomerular Filtration rate(GRF) is the best overall index of kidney function. Normal GFR varies according to age,sex, body size, and declines with age. The [employer] recommends using the CKD-EPI Creatinine Equation(2020) to estimate GFR. BUN/Creat Ratio 22.6 12.0-20.0 % Total Protein 6.9 5.8-8.0 G/DL Albumin 4.4 3.2-4.8 G/DL Globulin 2.4 2.3-3.5 G/DL Alb/Glob 1.8 0.8-2.2 Calcium 9.4 8.7-10.4 MG/DL Sodium 139 136-145 MMOL/L Potassium 3.6 3.5-5.1 MMOL/L Chloride 107 98-107 MMOL/L CO2 24.1 20.0-31.0 MMOL/L Anion Gap 12 5-15 Alk Phos 140 46-116 Bili Total .3 .3-1.2 MG/DL Use of this ass ay is not recommended for patients undergoing treatment with eltrombopag due to the potential for falsely elevated results. AST/SGOT <8 15-37 UNIT/L ALT/SGPT <7 12-78 UNIT/L Osmo Serum,Calculated 290 280-300 MOSM/KG CRP [id number] Reviewed date:08/19/2024 05:36:43 PM Interpretation: Performing Lab: Notes/Report: Diagnosis Description: Osteomyelitis of vertebra, site unspecified CRP 1.64 .40-1.00 MG/DL REASON FOR VISIT [id number] 1 week f/u - Picc Line Medications Medication SIG (Take, Route, Frequency, Duration) Notes Start Date End Date Status Ketoconazole 2 % as directed Externally Active Magnesium Gluconate 250 MG 1 tablet Oral ly Once a day 08/05/2024 Active oxyBUTYnin Chloride ER 5 MG 1 tablet Ora lly Once a day Active Vancomycin HCl 2 GM as directed Intravenous Active Jakafi 10 MG 1 tablet Orally Twic e a day Active Clopidogrel Bisulfate 75 MG 1 tablet Ora lly Once a day Active Cyclobenzaprine HCl 5 MG 1 tablet at bed time as needed Orally TID 08/05/2024 Active Furosemide 20 MG 1 tablet Orally Once a day Active Folic Acid 400 MCG 1 tablet Orally Once a day Active HYDROcodone-Acetaminophen 5-325 MG 1 tablet as needed Orally every 6 hrs Active cefTRIAXone Sodium 2 GM as directed Injection Active Calcium Carbonate 600 MG 1 tablet with f ood Orally once daily Active Clobetasol & Clobetasol Emul 0.05 & 0.05 % as directed Externally Acti ve Social History Tobacco Use: Social History Observation Description Date Details (start date - stop date) Former Smoker NA - NA Tobacco Control (Standard) Question Answer Notes Tobacco use: Former smoker Vital Signs Temperature 97.4 degrees Fahrenheit 08/19/20 24 Blood pressure systolic 141 mm Hg 08/19/20 24 Blood pressure diastolic 75 mm Hg 024 Heart Rate 112 /min 08/19/2024 Respiratory Rate 18 /min 08/19/2024 Weight 142.86 lbs 08/19/2024 Oximetry 92 % 08/19/2024 Weight-kg 64.8 kg 08/19/2024 Encounters Encounter Location Date Provider Diagnosis [facility] [address] [place] [address], [place] [address] 08/19/2024 Tony Bingham Osteomyelitis of vertebra M46.20 and Infection following a procedure, other surgical site, initial encounter T81.49XA Assessments Encounter Date Diagnosis (ICD Code) Assessment Notes Treat ment Notes Treatment Clinical Notes 08/19/2024 Osteomyelitis of vertebra (ICD-10 - M46.20) 08/19/2024 Infection following a procedure, other surgical site, initial encounter (ICD-10 - T81.49XA) Plan Of Treatment Next Appt Details Follow Up: 1 Week, Reason: Provider Name:Tony Nunes kimberlyn, 08/26/2024 01:30:00 PM, [address] [place] [address], [facility], [place], [address], Provider Name:Tony Nunes kimberlyn, 09/02/2024 02:30:00 PM, [address] [place] [address], [facility], [place], [address], Provider Name:oTny Nunes kimberlyn, 09/09/2024 01:45:00 PM, [address] [place] [address], [facility], [place], [address], Provider Name:Tony sofia, 09/16/2024 01:45:00 PM, [address] [place] [address], [facility], [place], [address], Progress Notes * Marizol CORTÉS MDOB:1944 (79 yo F)Acc No.[id number]:08/19/2024 Progress Notes Patient:?Marizol CORTÉS Provider:?Tony Bingham MD :1945???Age:79 Y???Sex:Female D ate:08/19/2024 Address:[address] [place], [place] [id number] Pcp:Sandra Platt Check Out:02:25 PM TENDER COORDINATOR Subjective: * Chief Complaints: * ???1. [id number] 1 week f/u - Picc Line. * HPI: ???::?The patient is a 79 year old white female with a history of CML, who presented from to [facility] via transfer from [place] where she presented with severe progressive back pain, elevated CRP, low grade fever and elevated WBC. She underwent a vertebroplasty and laminectomy 07-11-24.She had a compound L4 compression fracture but denies trauma or fall.? Records were reviewed from [facility] her MRI revealed a low back infection. She does not have hardware in place. She has had improvement in her pain, but continues to experience pain in her lower lumbar area in her hips. She??is severely limited with her ROM.MRI is not available. She does have severe spinal stenosis ?She is currently staying at a nursing facility in [place].?There are no labs or records to review today.?She reports she has been receiving her IV medications in the facility. 08-12-24: Hospital follow up w/Dr. Bingham today.Feeling good, walking a few steps but not as good as she wants. 08-19-24; doing ok, in retirement facility. Facility hasnt been flushing her port. Back is not doing well.States compression fractures in pelvis. MRI on Sunday. * ROS:?General - Multi System:?Constitutional?Denies, fever, chills, [...] rashes, bruising, or skin changes.? * Medical History:?Measles, Ch icken Pox, Arthritis, Glaucoma, Back Trouble, Cancer. * Surgical History:?tonsillect denise , appendectomy , knee replacement , Abdominal adhesion . * Hospitalization/Major Diagno stic Procedure:?see above . * Family History:?Father: dece ased 78 yrs, Cancer.?Mother: 76 yrs, Diabetes.? * Social History:?Tobacco Use:?Tobacco Control (Standard)?Tobacco use:?Former smoker * Medications:?Taking Calcium Carbonate 600 MG Tablet 1 tablet with food Orally once daily , Taking cefTRIAXone Sodium 2 GM Solution Reconstituted as directed Injection , Taking Clobetasol & Clobetasol Emul 0.05 & 0.05 % Miscellaneous as directed Externally , Taking Clopidogrel Bisulfate 75 MG Tablet 1 tablet Orally Once a day , Taking Cyclobenzaprine HCl 5 MG Tablet 1 tablet at bedtime as needed Orally TID , Taking Folic Acid 400 MCG Tablet 1 tablet Orally Once a day , Taking Furosemide 20 MG Tablet 1 tablet Orally Once a day , Taking HYDROcodone-Acetaminophen 5-325 MG Tablet 1 tablet as needed Orally every 6 hrs , Taking Jakafi 10 MG Tablet 1 tablet Orally Twice a day , Taking Ketoconazole 2 % Shampoo as directed Externally , Taking Magnesium Gluconate 250 MG Tablet 1 tablet Orally Once a day , Taking oxyBUTYnin Chloride ER 5 MG Tablet Extended Release 24 Hour 1 tablet Orally Once a day , Taking Vancomycin HCl 2 GM Solution Reconstituted as directed Intravenous , Medication List reviewed and reconciled with the patient * Allergies:?Prednisone: Aller gy, Sulfa Antibiotics: Allergy. Objective: * Vitals:?Wt:142.86lbs, Wt-k.8 kg, Temp:97.4F, BP:141/75mm Hg, HR:112/min, RR:18/min, Oxygen sat %:92%. * Examination: ???General Examination: ?GENERAL APPEARANCE:?alert, well hydrated, in no distress.?HEAD:?normocephalic, atraumatic.?HEART:?regular rate and rhythm, S1, S2 normal, no heaves, lifts or gallops. PMI at/near 5th left intercostal space at anterior axillary line.?LUNGS:?clear anteriorly and posteriorly.?CHEST:?atraumatic, no deformities, no pain to palpation.?ABDOMEN:?bowel sounds present, soft, nontender, nondistended.?NEUROLOGIC:?alert and oriented, cerebellar function normal, cognitive exam grossly normal, gait normal.? Assessment: * Assessment: 1.?Osteomyelitis of vertebra - M46.20 (Primary)???2.?Infection following a procedure, other surgical site, initial encounter - T81.49XA??? 1. 79 yo white female with a history of CML, who presented from [place] where she presented with severe progressive back pain, elevated CRP, low grade fever and elevated WBC. 2. vertebroplasty and laminectomy 07-11-24. 3. Low back infection 4. antibiotics: day #29 Vancomycin, and rocephin.- duration of therapy determined by patient response, probably 6 weeks of IV therapy5. biggest obstacle is placement -labs are improving Labs ordered today 24 CBC, CMP, CRP LABS 07-21-24 W 20.5, CRP 4.39 10--24 W 17.6, ACID STRENGTH INSPECTOR .74, CRP 1.59 08-12-24 W 15.9, ACID STRENGTH INSPECTOR .65, CRP 1.14 Follow up: Isis Villegas Plan: * Treatment: * Follow Up:?1 Week Forms: * Billing Information: * Visit Code:? 51141 Office Visit, Est Pt., Level 3. * Procedure Codes:? Care Plan Details* * Electronic signature of Janell Bingham JR, MD on 08/25/2024 at 07:00 AM TENDER COORDINATOR Sign off status: Pending * Provider:?Tony Bingham MD Date:?07/23 Generated for Sandip chen/Brooke/Haleysmitting on:?08/25/2024 07:00 AM TENDER COORDINATOR History and Physical Notes * Examination Category [...]
--- OUTSIDE RECORDS SUMMARY | 2024-08-25 07:01 | XMS_ITS | Patient Health Record ---
Author Name Unknown Organization [facility] Address [address] [place] [address] Care Team Providers Care Biological Science Technician Name Role Phone Sandra Platt Primary Care Provider Unavailab Nazanin Brooks Unavailable [phone] Tony Bingham JR Unavailable [phone] Veronica Moses Unavailable [phone] Allergies Allergen (clinical drug ingredient) Drug/Non Drug Allergy documented on EMR Reaction Allergy Type Onset Date Status prednisone Prednisone Unknown Drug Allergy Activ e Substance with sulfonamide structure and antibacterial mechanism of action (substance) Sulfa Antibiotics Unknown Drug Allergy Active Results Component Value Reference Range Notes CBC w\ Auto Diff [id number] Reviewed date:08/19/2024 05:36:46 PM Interpretation: Performing Lab: [...] 40.0-70.0 % Lymph Auto% 21.0 22.0-44.0 % [place] Auto% 31.1 3.0-7.0 % Eos Auto% 13.7 2.0-4.0 % Baso Auto% 0.2 0.0-1.0 % Imm Gran% 1.2 .0-.4 % Neutro Abs 4.61 .80-7.70 Absolute Neutrophil Count 4610 Lymph Abs 2.97 .10-4.10 [place] Abs 4.39 .20-1.00 Eos Abs 1.94 .00-.40 Baso Abs .03 .00-.20 Imm Gran Abs .17 .00-.10 NRBC# .00 .00-.20 X10'3 NRBC% .00 .00-.20 /100 intact WBC's Comprehensive Metabolic Pane l [id number] Reviewed date:08/19/2024 05:36:49 PM Interpretation: Performing Lab: Notes/Report: Diagnosis Description: Osteomyelitis of vertebra, site unspecified Glucose Serum 123 71-110 MG/DL Testing perfor med at [facility], [address] [place] [address] [place] [address]. CLIA ID#: [id number] BUN 14 7-21 MG/DL Creat .62 .51-1.17 MG/DL F-xggztw-t-benzoquinon e imine (NAPQI) is a metabolite of acetaminophen, [...] UNIT/L Osmo Serum,Calculated 290 280-300 MOSM/KG CRP [id number] Reviewed date:08/19/2024 05:36:43 PM Interpretation: Performing Lab: Notes/Report: Diagnosis Description: Osteomyelitis of vertebra, site unspecified CRP 1.64 .40-1.00 MG/DL Comprehensive Metabolic Pane l 08459 Reviewed date:08/08/2024 11:43:16 AM Interpretation: Performing Lab: Notes/Report: Diagnosis Description: Elevated C-reactive protein (CRP) Glucose Serum 96 71-110 MG/DL Testing perfor med at [facility], [address] [place] [address] [place] [address]. CLIA ID#: [id number] BUN 18 7-21 MG/DL Creat .74 .51-1.17 MG/DL R-iqhtyj-y-benzoquinon e imine (NAPQI) is a metabolite of acetaminophen, [...] the potential for falsely depressed results. GFR 81.6 Calculation per formed from GFR calculator provided by the National Kidney Foundation. Glomerular Filtration rate(GRF) is the best overall index of kidney function. Normal GFR varies according to age,sex, body size, and declines with age. The National Kidney Foundation recommends using the CKD-EPI Creatinine Equation(2020) to estimate GFR. BUN/Creat Ratio 24.3 12.0-20.0 % Total Protein 7.6 5.8-8.0 G/DL Albumin 4.7 3.2-4.8 G/DL Globulin 3.0 2.3-3.5 G/DL Alb/Glob 1.6 0.8-2.2 Calcium 10.1 8.7-10.4 MG/DL Sodium 138 136-145 MMOL/L Potassium 4.3 3.5-5.1 MMOL/L Chloride 102 98-107 MMOL/L CO2 23.4 20.0-31.0 MMOL/L Anion Gap 17 5-15 Alk Phos 189 46-116 Bili Total .3 .3-1.2 MG/DL Use of this ass ay is not recommended for patients undergoing treatment with eltrombopag due to the potential for falsely elevated results. AST/SGOT 11 15-37 UNIT/L ALT/SGPT 9 12-78 UNIT/L Osmo Serum,Calculated 288 280-300 MOSM/KG Vancomycin Trough 11745 Reviewed date:08/08/2024 11:43:16 AM Interpretation: Performing Lab: Notes/Report: Diagnosis Description: Elevated C-reactive protein (CRP) Vanco Tr 17.8 8.0-20.0 MCG/ML CRP 77490 Reviewed date:08/08/2024 11:43:16 AM Interpretation: Performing Lab: Notes/Report: Diagnosis Description: Elevated C-reactive protein (CRP) CRP 1.59 .40-1.00 MG/DL CBC w\ Auto Diff 86466 (Not yet reviewed by provider) Interpretation: Performing [...] 40.0-70.0 % Lymph Auto% 21.9 22.0-44.0 % [place] Auto% 25.6 3.0-7.0 % Eos Auto% 11.5 2.0-4.0 % Baso Auto% 0.2 0.0-1.0 % Imm Gran% 1.1 .0-.4 % Neutro Abs 6.32 .80-7.70 Absolute Neutrophil Count 6320 Lymph Abs 3.48 .10-4.10 [place] Abs 4.07 .20-1.00 Eos Abs 1.83 .00-.40 Baso Abs .03 .00-.20 Imm Gran Abs .18 .00-.10 NRBC# .00 .00-.20 X10'3 NRBC% .00 .00-.20 /100 intact WBC's Comprehensive Metabolic Pane l 15667 (Not yet reviewed by provider) Interpretation: Performing Lab: Notes/Report: Diagnosis Description: Infection following a procedure, other surgical site, initial encounter Glucose Serum 124 71-110 MG/DL Testing perfor med at [facility], [address] [place] [address] [place] [address]. CLIA ID#: [id number] BUN 18 7-21 MG/DL Creat .65 .51-1.17 MG/DL N-svqkbn-n-benzoquinon e imine (NAPQI) is a metabolite of acetaminophen, [...] Kidney Foundation recommends using the CKD-EPI Creatinine Equation(202) to estimate GFR. BUN/Creat Ratio 27.7 12.0-20.0 [...] UNIT/L Osmo Serum,Calculated 289 280-300 MOSM/[place] 25735 (Not yet reviewed by provider) Interpretation: Performing Lab: Notes/Report: Diagnosis Description: Infection following a procedure, other surgical site, initial encounter CRP 1.14 .40-1.00 MG/DL Basic Metabolic Panel (BMP) 88050 (Not yet reviewed by provider) Interpretation: Performing Lab: Notes/Report: Sodium 141 136-145 MMOL/L Potassium 3.5 3.5-5.1 MMOL/L Chloride 108 98-107 MMOL/L CO2 23.4 20.0-31.0 MMOL/L Glucose Serum 85 71-110 MG/DL Testing perfor med at [facility], [address] [place] [address] [place] [address]. CLIA ID#: [id number] BUN 10 7-21 MG/DL Creat .66 .51-1.17 MG/DL Y-yqntkq-r-benzoquinon e imine (NAPQI) is a metabolite of acetaminophen, [...] the potential for falsely depressed results. GFR 88.5 Calculation per formed from GFR calculator provided by the National Kidney Foundation. Glomerular Filtration rate(GRF) is the best overall index of kidney function. Normal GFR varies according to age,sex, body size, and declines with age. The National Kidney Foundation recommends using the CKD-EPI Creatinine Equation(2020) to estimate GFR. Anion Gap 13 5-15 BUN/Creat Ratio 15.2 12.0-20.0 % Calcium 9.2 8.7-10.4 MG/DL Osmo Serum,Calculated 290 280-300 MOSM/KG [place] [address], 8 5007 (Not yet reviewed by provider) Interpretation: Performing Lab: Notes/Report: WBC 20.5 4.5-11.0 X10'3 RBC 3.10 4.00-5.20 X10'6 Hgb 9.8 12.0-16.0 G/DL Hct 30.6 36.0-46.0 % MCV 98.7 80.0-100.0 FL MCH 31.6 27.0-31.0 PG MCHC 32.0 31.0-37.0 G/DL Platelet 410 150-400 X10'3 RDW-SD 53.1 35.0-49.0 FL RDW-CV 14.6 12.2-15.6 % MPV 11.0 9.2-12.0 FL Review Man Diff WBC Differential Manual--850 07 (Not yet reviewed by provider) Interpretation: Performing Lab: Notes/Report: Differential ordered by Discern Expert Rules system. Band/Segs Man 62 40-70 % Lymph Man 13 22-44 % Monocyte Man 20 3-7 % Eos Man 5 2-4 % Basophil Man 0 0-1 % PLT Appear Increased RBC Morph Normal Morph Elliptocytes Occasional Giant Platelets Present Schistocyte Occasional Smudge Cells 9 Prothrombin Time 14305 (Not yet reviewed by provider) Interpretation: Performing Lab: Notes/Report: ProTime 14.0 9.1-11.9 SEC Normal Range: 9 .1-11.9 INR 1.35 .90-1.20 Therapeutic Range: 2.0-3.0 Therapaeutic Range for heart valve replacement: 2.5-3.50 CBC w\ Auto Diff 11855 (Not yet reviewed by provider) Interpretation: Performing Lab: Notes/Report: WBC 16.9 4.5-11.0 X10'3 RBC 3.00 4.00-5.20 X10'6 Hgb 9.7 12.0-16.0 G/DL Hct 29.5 36.0-46.0 % MCV 98.3 80.0-100.0 FL MCH 32.3 27.0-31.0 PG MCHC 32.9 31.0-37.0 G/DL Platelet 395 150-400 X10'3 RDW-SD 52.3 35.0-49.0 FL RDW-CV 14.6 12.2-15.6 % MPV 11.0 9.2-12.0 FL Neutro Auto% 43.8 40.0-70.0 % Lymph Auto% 13.8 22.0-44.0 % [place] Auto% 36.0 3.0-7.0 % Eos Auto% 3.9 2.0-4.0 % Baso Auto% 0.1 0.0-1.0 % Imm Gran% 2.4 .0-.4 % Neutro Abs 7.40 .80-7.70 Absolute Neutrophil Count 7400 Lymph Abs 2.34 .10-4.10 [place] Abs 6.08 .20-1.00 Eos Abs .66 .00-.40 Baso Abs .01 .00-.20 Imm Gran Abs .41 .00-.10 NRBC# .00 .00-.20 X10'3 NRBC% .00 .00-.20 /100 intact WBC's Partial Thromboplastin Time 80877 (Not yet reviewed by provider) Interpretation: Performing Lab: Notes/Report: PTT 31.3 22.6-31.8 SEC Therapeutic Range: 60-100. Critical Value Starting at > 100. [place] 18986 (Not yet reviewed by provider) Interpretation: Performing Lab: Notes/Report: CRP 4.39 .40-1.00 MG/DL Chest PA/Lat-61659 (Not yet reviewed by provider) Interpretation: Performing Lab: Notes/Report: xii=[id number]&org=iSite bin=[id number] &org=iSite Chest AP/Lateral (Not yet re viewed by provider) Interpretation: Performing Lab: Notes/Report: fmr=[id number]&org=iSite lcs=[id number] &org=iSite Chest PA/Lat-57929 (Not yet reviewed by provider) Interpretation: Performing Lab: Notes/Report: See Below For Report Chest PA/Lat Read See Below For Report UA Reflex Micro, Reflex Cult 31363, 99230, 35095 (Not yet reviewed by provider) Interpretation: Performing Lab: Notes/Report: Color UA Yellow Clarity UA Clear Specific gravity UA 1.019 1.005-1.030 Urine pH 5.5 5.0-8.0 Urine Glucose Negative Urine Bilirubin Negative Urine Ketone 1+ Urine Blood Negative Urine Protein Negative Urobilinogen 0.2 0.1-1.0 Urine Nitrite Negative Urine Leukocyte Negative Normal UA Yes Urine Culture No CBC w\ Auto Diff 76866 Reviewed date:08/08/2024 11:43:16 AM Interpretation: Performing Lab: Notes/Report: Diagnosis Description: Elevated C-reactive protein (CRP) WBC 17.6 4.5-11.0 X10'3 RBC 3.31 4.00-5.20 X10'6 Hgb 10.6 12.0-16.0 G/DL Hct 33.8 36.0-46.0 % MCV 102.1 80.0-100.0 FL MCH 32.0 27.0-31.0 PG MCHC 31.4 31.0-37.0 G/DL Platelet 358 150-400 X10'3 RDW-SD 57.8 35.0-49.0 FL RDW-CV 15.6 12.2-15.6 % MPV 11.0 9.2-12.0 FL Neutro Auto% 38.5 40.0-70.0 % Lymph Auto% 24.4 22.0-44.0 % [place] Auto% 27.3 3.0-7.0 % Eos Auto% 8.5 2.0-4.0 % Baso Auto% 0.2 0.0-1.0 % Imm Gran% 1.1 .0-.4 % Neutro Abs 6.75 .80-7.70 Absolute Neutrophil Count 6750 Lymph Abs 4.29 .10-4.10 [place] Abs 4.80 .20-1.00 Eos Abs 1.50 .00-.40 Baso Abs .03 .00-.20 Imm Gran Abs .19 .00-.10 NRBC# .00 .00-.20 X10'3 NRBC% .00 .00-.20 /100 intact WBC's Schedule Confirmation Reviewed date:08/21/2024 01:39:08 PM Interpretation: Performing Lab: Notes/Report: CRP 06406 Reviewed date:07/24/2024 08:27:00 AM Interpretation: Performing Lab: Notes/Report: CRP 1.80 .40-1.00 MG/DL Vancomycin Trough 82935 Reviewed date:07/24/2024 08:27:02 AM Interpretation: Performing Lab: Notes/Report: Vanco Tr 13.5 8.0-20.0 MCG/ML CRP 22431 Reviewed date:07/30/2024 05:32:15 PM Interpretation: Performing Lab: Notes/Report: CRP 3.15 .40-1.00 MG/DL Comprehensive Metabolic Pane l 36317 Reviewed date:07/30/2024 05:32:17 PM Interpretation: Performing Lab: Notes/Report: Glucose Serum 104 71-110 MG/DL Testing perfor med at [facility], [address] [place] [address] [place] [address]. CLIA ID#: [id number] BUN 7 7-21 MG/DL Creat .56 .51-1.17 MG/DL W-rytsle-b-benzoquinon e imine (NAPQI) is a metabolite of acetaminophen, [...] the potential for falsely depressed results. GFR 92.3 Calculation per formed from GFR calculator provided by the National Kidney Foundation. Glomerular Filtration rate(GRF) is the best overall index of kidney function. Normal GFR varies according to age,sex, body size, and declines with age. The National Kidney Foundation recommends using the CKD-EPI Creatinine Equation(2020) to estimate GFR. BUN/Creat Ratio 12.5 12.0-20.0 % Total Protein 7.1 5.8-8.0 G/DL Albumin 4.1 3.2-4.8 G/DL Globulin 3.0 2.3-3.5 G/DL Alb/Glob 1.4 0.8-2.2 Calcium 9.4 8.7-10.4 MG/DL Sodium 141 136-145 MMOL/L Potassium 2.8 3.5-5.1 MMOL/L Chloride 108 98-107 MMOL/L CO2 22.8 20.0-31.0 MMOL/L Anion Gap 13 5-15 Alk Phos 164 46-116 Bili Total .5 .3-1.2 MG/DL Use of this ass ay is not recommended for patients undergoing treatment with eltrombopag due to the potential for falsely elevated results. AST/SGOT 11 15-37 UNIT/L ALT/SGPT 11 12-78 UNIT/L Osmo Serum,Calculated 290 280-300 MOSM/KG Scan--83745 (Not yet reviewe d by provider) Interpretation: Performing Lab: Notes/Report: PLT Appear Adequate RBC Morph Normal Morph Giant Platelets Present Hypochrom Slight Polychrom Occasional CBC w\ Auto Diff 70290 Reviewed date:07/30/2024 05:32:21 PM Interpretation: Performing Lab: Notes/Report: WBC 18.6 4.5-11.0 X10'3 RBC 3.40 4.00-5.20 X10'6 Hgb 10.7 12.0-16.0 G/DL Hct 33.3 36.0-46.0 % MCV 97.9 80.0-100.0 FL MCH 31.5 27.0-31.0 PG MCHC 32.1 31.0-37.0 G/DL Platelet 405 150-400 X10'3 RDW-SD 52.5 35.0-49.0 FL RDW-CV 14.6 12.2-15.6 % MPV 10.8 9.2-12.0 FL Neutro Auto% 50.8 40.0-70.0 % Lymph Auto% 10.4 22.0-44.0 % [place] Auto% 31.8 3.0-7.0 % Eos Auto% 3.7 2.0-4.0 % Baso Auto% 0.2 0.0-1.0 % Imm Gran% 3.1 .0-.4 % Neutro Abs 9.45 .80-7.70 Absolute Neutrophil Count 9450 Lymph Abs 1.92 .10-4.10 [place] Abs 5.90 .20-1.00 Eos Abs .68 .00-.40 Baso Abs .03 .00-.20 Imm Gran Abs .57 .00-.10 NRBC# .00 .00-.20 X10'3 NRBC% .00 .00-.20 /100 intact WBC's Vancomycin Trough 59277 (Not yet reviewed by provider) Interpretation: Performing Lab: Notes/Report: Vanco Tr 13.2 8.0-20.0 MCG/ML Creatinine (B) 03200 (Not ye t reviewed by provider) Interpretation: Performing Lab: Notes/Report: Creat .57 .51-1.17 MG/DL Q-zhxuhi-q-benzoquinon e imine (NAPQI) is a metabolite of acetaminophen, [...] the potential for falsely depressed results. GFR 91.9 Calculation per formed from GFR calculator provided by the National Kidney Foundation. Glomerular Filtration rate(GRF) is the best overall index of kidney function. Normal GFR varies according to age,sex, body size, and declines with age. The National Kidney Foundation recommends using the CKD-EPI Creatinine Equation(2020) to estimate GFR. CRP [id number] Reviewed date:07/30/2024 05:28:55 PM Interpretation: Performing Lab: Notes/Report: CRP 1.41 .40-1.00 MG/DL CRP 74057 Reviewed date:07/23/2024 08:24:33 AM Interpretation: Performing Lab: Notes/Report: CRP 2.47 .40-1.00 MG/DL Comprehensive Metabolic Pane l 66935 Reviewed date:07/23/2024 08:24:37 AM Interpretation: Performing Lab: Notes/Report: Glucose Serum 89 71-110 MG/DL Testing perfor med at [address] [place] [address]. CLIA ID#: [id number] BUN 7 7-21 MG/DL Creat .58 .51-1.17 MG/DL D-sruegk-p-benzoquinon e imine (NAPQI) is a metabolite of acetaminophen, [...] the potential for falsely depressed results. GFR 91.4 Calculation per formed from GFR calculator provided by the National Kidney Foundation. Glomerular Filtration rate(GRF) is the best overall index of kidney function. Normal GFR varies according to age,sex, body size, and declines with age. The National Kidney Foundation recommends using the CKD-EPI Creatinine Equation(2020) to estimate GFR. BUN/Creat Ratio 12.1 12.0-20.0 % Total Protein 6.2 5.8-8.0 G/DL Albumin 3.8 3.2-4.8 G/DL Globulin 2.4 2.3-3.5 G/DL Alb/Glob 1.6 0.8-2.2 Calcium 9.0 8.7-10.4 MG/DL Sodium 141 136-145 MMOL/L Potassium 3.8 3.5-5.1 MMOL/L Chloride 109 98-107 MMOL/L CO2 21.8 20.0-31.0 MMOL/L Anion Gap 14 5-15 Alk Phos 162 46-116 Bili Total .5 .3-1.2 MG/DL Use of this ass ay is not recommended for patients undergoing treatment with eltrombopag due to the potential for falsely elevated results. AST/SGOT 9 15-37 UNIT/L ALT/SGPT 13 12-78 UNIT/L Osmo Serum,Calculated 289 280-300 MOSM/KG CBC w\ Auto Diff 00260 Reviewed date:07/23/2024 08:24:40 AM Interpretation: Performing Lab: Notes/Report: WBC 15.4 4.5-11.0 X10'3 RBC 3.10 4.00-5.20 X10'6 Hgb 9.9 12.0-16.0 G/DL Hct 30.0 36.0-46.0 % MCV 96.8 80.0-100.0 FL MCH 31.9 27.0-31.0 PG MCHC 33.0 31.0-37.0 G/DL Platelet 363 150-400 X10'3 RDW-SD 50.8 35.0-49.0 FL RDW-CV 14.5 12.2-15.6 % MPV 11.0 9.2-12.0 FL Neutro Auto% 43.4 40.0-70.0 % Lymph Auto% 17.4 22.0-44.0 % [place] Auto% 32.2 3.0-7.0 % Eos Auto% 4.2 2.0-4.0 % Baso Auto% 0.1 0.0-1.0 % Imm Gran% 2.7 .0-.4 % Neutro Abs 6.67 .80-7.70 Absolute Neutrophil Count 6670 Lymph Abs 2.67 .10-4.10 [place] Abs 4.95 .20-1.00 Eos Abs .65 .00-.40 Baso Abs .02 .00-.20 Imm Gran Abs .42 .00-.10 NRBC# .00 .00-.20 X10'3 NRBC% .00 .00-.20 /100 intact WBC's Reason For Referral No Information Medications Medication SIG (Take, Route, Frequency, Duration) Notes Start Date End Date Status cefTRIAXone Sodium 2 GM as directed Injection Active Calcium Carbonate 600 MG 1 tablet with f ood Orally once daily Active Ketoconazole 2 % as directed Externally Active Clopidogrel Bisulfate 75 MG 1 tablet Ora lly Once a day Active Clobetasol & Clobetasol Emul 0.05 & 0.05 % as directed Externally Acti ve Magnesium Gluconate 250 MG 1 tablet Oral ly Once a day 08/05/2024 Active Cyclobenzaprine HCl 5 MG 1 tablet at bed time as needed Orally TID 08/05/2024 Active oxyBUTYnin Chloride ER 5 MG 1 tablet Ora lly Once a day Active Furosemide 20 MG 1 tablet Orally Once a day Active Vancomycin HCl 2 GM as directed Intravenous Active Folic Acid 400 MCG 1 tablet [...] Question Answer Notes Tobacco use: Former smoker Problems Problem Type SNOMED Code ICD Code Onset Dates Problem Status W/U Status Risk Notes Problem [id number] CRP elevated (R79.82) Active confirmed Problem Spinal stenosis of lumbar region (45476551) 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) Active confirmed Vital Signs Heart Rate 112 /min 08/19/2024 Temperature 97.4 degrees Fahrenheit 08/19/2024 Respiratory Rate 18 /min 08/19/2024 Oximetry 92 % 08/19/2024 Blood pressure diastolic 75 mm Hg 08/19/2024 Weight-kg 64.8 kg 08/19/2024 Blood pressure systolic 141 mm Hg 08/19/2024 Weight 142.86 lbs 08/19/2024 Encounters Encounter Location Date Provider Diagnosis [facility] [address] [place] [address], [place] [address] 08/19/2024 Tony Zachery Osteomyelitis of vertebra M46.20 and Infection following a procedure, other surgical site, initial encounter T81.49XA [facility] [address] [place] [address], [place] [address] 08/05/2024 [facility] CRP elevated R79.82 and Osteomyelitis of vertebra M46.20 [facility] [address] [place] [address], [place] [address] 08/12/2024 Tony Zachery Osteomyelitis of vertebra M46.20 and Infection following a procedure, other surgical site, initial encounter T81.49XA [facility] [address] [place] [address], [place] [address] 08/05/2024 [facility] [address] [place] [address], [place] [address] 08/05/2024 [facility] Assessments Encounter Date Diagnosis (ICD Code) Assessment Notes Treat ment Notes Treatment Clinical Notes 08/05/2024 CRP elevated (ICD-10 - R79.82) 08/05/2024 Osteomyelitis of vertebra (ICD-10 - M46.20) 08/12/2024 Infection following a procedure, other surgical site, initial encounter (ICD-10 - T81.49XA) 08/12/2024 Osteomyelitis of vertebra (ICD-10 - M46.20) 08/19/2024 Osteomyelitis of vertebra (ICD-10 - M46.20) 08/19/2024 Infection following a procedure, other surgical site, initial encounter (ICD-10 - T81.49XA) Plan Of Treatment Pending Test Test Name Order Date Prothrombin Time 63288 07/21/2024 Basic Metabolic Panel (BMP) 37268 2023 CBC w\ Auto Diff 71219 08/12/2024 CBC w\ Auto Diff 02466 07/21/2024 Comprehensive Metabolic Panel 29973 07/23 Creatinine (B) 75863 07/22/2024 Partial Thromboplastin Time 27863 2023 Vancomycin Trough 32242 07/22/2024 CBC Reflex Man Diff 38785, 53356 024 UA Reflex Micro, Reflex Cult 00623, 8101 5, 58781 07/21/2024 CRP 81575 07/21/2024 CRP 77260 08/12/2024 Chest PA/Lat-67382 07/21/2024 Chest PA/Lat-94380 07/21/2024 WBC Differential Manual--87621 4 Scan--91886 08/12/2024 Chest AP/Lateral 07/21/2024 Next Appt Details Provider Name:Tony sofia, 08/26/2024 01:30:00 PM, [facility] [address], [facility], [place], [address], Provider Name:Tony sofia, 09/02/2024 02:30:00 PM, [facility] [address], [facility], [place], [address], Provider Name:Tony sofia, 09/09/2024 01:45:00 PM, [facility] [address], [facility], [place], [address], Provider Name:Tony sofia, 09/16/2024 01:45:00 PM, [facility] [address], [facility], [place], [address], Insurance Providers Payer Name Payer Address Payer Phone Subscriber Number Group Number Insured Name Patient Relationship to Insured Coverage Start Date Coverage End Date [place] Medicare [address] [place] [phone] [id number] Marizol Cortés Self - patient is the insured [employer] [address] [place] [phone] [id number] Marizol Cortés Self - patient is the insured Medical (General) History Medical History History ICD Code measles Chicken Pox Arthritis glaucoma Back Trouble cancer Surgical History Surgery Date(Month/Year) tonsillectomy appendectomy knee replacement Abdominal adhesion Hospitalization History Reason Date(Month/Year) see above
--- NOTE | 2024-08-25 08:44 | XR_ITS ---
WS: [id number] PORTABLE CHEST HISTORY: PICC not flushing COMPARISON: 07/20/2024 RIGHT PICC line in good position. Tip ends in the mid SVC. Slight elevation RIGHT hemidiaphragm. No pneumonia. Small calcified granulomata RIGHT lower lobe. No pleural effusion or pneumothorax. Cardiac size: Normal. Mediastinum/Aorta: Mild atherosclerosis aorta. No osseous abnormality seen. XR/XR chest 1V portable 56995 IMPRESSION: Satisfactory position of the RIGHT PICC line.
[2024-08-25] MEDS: alteplase 1 mg/mL SDV 2 mL 2 MG INTRACATH (09:25)
[2024-08-25 09:33] VITALS: BP 135/75; PULSE 102; RESP 16; TEMP 36.2; O2SAT 96
--- NOTE | 2024-08-25 09:36 | PICC.NOTE ---
Pt to vascular access nurse for evaluation of right PICC line. [facility] sent order for evaluation due to inability to flush line. CXR ordered with PICC tip noted in mid-SVC, in good position for use per radiologist. Attempted flush to line. Line flushed with some difficulty, but able to flush. Cathflo used per protocol. Will allow dwell for 30 minutes and will reevaluate line.
--- NOTE | 2024-08-25 10:02 | PICC.NOTE ---
Following dwell time of 30 minutes with cathflo, good blood return noted. 4 mL wasted. Flushed without difficulty with 10 mL NS and locked with hep lock flush. Sterile dressing change performed to right upper extremity insertions site. Site clear without redness, drainage, or swelling. [facility] to [facility]. Pt to be taken back to [facility] via personal vehicle by .
== END ==
PROVIDERS: PCP Family Medicine; Visit Provider Internal Medicine
DX: Z45.2 Encounter for adjustment and management of vascular access device (principal)
CPT/HCPCS: 36593; 71045; J1642; J2997

== ENCOUNTER → 2024-08-28 09:07 | Outpatient (BNVA) | payer MEDICARE, OTHER, SELFPAY | PROVIDERS: PCP Family Medicine; Visit Provider Orthopaedic Surgery | DX: S32.10XD Unspecified fracture of sacrum, subsequent encounter for fracture with routine healing (principal); X58.XXXD Exposure to other specified factors, subsequent encounter | CPT/HCPCS: 72100; 99024 ==

== ENCOUNTER → 2024-09-01 09:55 | Outpatient (BNVA) | payer MEDICARE, OTHER, SELFPAY | PROVIDERS: PCP Family Medicine; Visit Provider Family Medicine | DX: M81.0 Age-related osteoporosis without current pathological fracture (principal) | CPT/HCPCS: 80048; 82306 ==

== ENCOUNTER → 2024-10-09 11:08 | Outpatient (BNVA) | payer MEDICARE, OTHER, SELFPAY | PROVIDERS: PCP Family Medicine; Visit Provider Orthopaedic Surgery | DX: S32.10XD Unspecified fracture of sacrum, subsequent encounter for fracture with routine healing (principal); X58.XXXD Exposure to other specified factors, subsequent encounter | CPT/HCPCS: 72170 ==

== ENCOUNTER 2024-10-09 11:32 | Outpatient (CLI) | payer MEDICARE, OTHER, SELFPAY ==
[2024-10-09 12:41] LABS: Basophils % 0.2 %; Eosinophils # 1.6 10^3/uL (0.0-0.8); Eosinophils % 10.4 %; Hematocrit 32.1 % (36-47); Lymphocytes # 3.4 10^3/uL (0.8-4.8); Lymphocytes % 22.1 %; Mean Corpuscular HGB Conc 31.5 g/dL (30-55); Mean Corpuscular Hemoglobin 30.7 pg (27-33); Mean Corpuscular Volume 97.6 fl (85-98); Mean Platelet Volume 10.7 fL (7.4-10.4); Monocytes % 32.6 %; Neutrophils # 5.23 10^3/uL (1.8-7.7); Neutrophils % 33.9 %; Nucleated Red Blood Cells % 0 %; Platelet Count 434 10^3/cmm (157-399); Red Blood Count 3.29 10^6/uL (3.85-5.65); White Blood Count 15.45 10^3/uL (3.29-11.43)
[2024-10-09 13:06] LABS: Alanine Aminotransferase 7 U/L (0-33); Albumin Level 4.3 g/dL (3.5-5.2); Alkaline Phosphatase 128 U/L (35-105); Anion Gap 13.6 (5-19); Aspartate Amino Transferase 9 U/L (0-32); Blood Urea Nitrogen 17 mg/dL (8-23); Calcium 9.6 mg/dL (8.5-10.5); Carbon Dioxide 24 mmol/L (22-29); Chloride 106 mmol/L (98-107); Ferritin 284 ng/mL (15-150); Globulin 3.1 g/dL (1.3-4.6); Glucose 93 mg/dL (65-115); Iron 33 ug/dL (37-145); Osmolality Calculated 291 mOsm/kg (285-295); Percent Saturation 22.1 % (20-50); Potassium 3.6 mmol/L (3.5-5.1); Sodium 140 mmol/L (136-145); Total Bilirubin 0.3 mg/dL (0.15-1.2); Total Iron Binding Capacity 149 mcg/dl; Total Protein 7.4 g/dL (6.6-8.7); Unsaturated Iron Binding 116 ug/dL (112-347)
== END 2024-10-09 11:33 | disposition home or self-care (01) ==
PROVIDERS: PCP Family Medicine; Visit Provider Family Medicine
DX: C93.10 Chronic myelomonocytic leukemia not having achieved remission (principal)
CPT/HCPCS: 80053; 82728; 83540; 83550; 85025; 99213

== ENCOUNTER → 2024-11-03 12:35 | Outpatient (BNVA) | payer MEDICARE, OTHER, SELFPAY | PROVIDERS: PCP Family Medicine; Visit Provider Family Medicine | DX: R30.0 Dysuria (principal) | CPT/HCPCS: 81000 ==

== ENCOUNTER → 2024-11-04 12:33 | Outpatient (BNVA) | payer MEDICARE, OTHER, SELFPAY | PROVIDERS: PCP Family Medicine; Visit Provider Family Medicine | DX: R19.7 Diarrhea, unspecified (principal) | CPT/HCPCS: 87493 ==

== ENCOUNTER → 2024-11-19 14:56 | Outpatient (BNVA) | payer MEDICARE, OTHER, SELFPAY | PROVIDERS: PCP Family Medicine; Visit Provider Nurse Practitioner Family | DX: L57.8 Other skin changes due to chronic exposure to nonionizing radiation (principal); L81.4 Other melanin hyperpigmentation; D22.39 Melanocytic nevi of other parts of face; Z85.820 Personal history of malignant melanoma of skin; Z08 Encounter for follow-up examination after completed treatment for malignant neoplasm; Z85.828 Personal history of other malignant neoplasm of skin; L57.0 Actinic keratosis | CPT/HCPCS: 17000; 99213 ==

== ENCOUNTER → 2024-11-28 11:46 | Outpatient (BNVA) | payer MEDICARE, OTHER, SELFPAY | PROVIDERS: PCP Family Medicine; Visit Provider Family Medicine | DX: Z01.818 Encounter for other preprocedural examination (principal); I49.3 Ventricular premature depolarization; R94.31 Abnormal electrocardiogram [ECG] [EKG] | CPT/HCPCS: 80053; 81003; 85025; 93005 ==

== ENCOUNTER 2024-12-02 11:33 | Observation (INO) | payer MEDICARE, OTHER, SELFPAY ==
--- NOTE | 2024-11-27 11:02 | P.ANESASSM_ITS ---
Pre-Anesthetic Assessment Height/Weight: Height 1.57 m Operation Date: 12/02/24 11:40 Proposed Procedures p Anterior Colporrhaphy 93866, 75666,74323, N81.10, N81.6, N39.46(Not Applicable) - Derick Maxwell MD s Posterior Repair Posterior Colporrhaphy(Not Applicable) - MD leola Mendez Sling Single Incision Sling(Not Applicable) - MD leola Mendez Sacrospinous Ligament Suspension Sacrospinous Fixation(Not Applicable) - Derick Maxwell MD Familial anesthetic complications: None Social No alcohol and No tobacco Exam alert, oriented x 3, clear to auscultation bilaterally and regular rate & rhythm Airway Mallampati: Class I Dentition: full Neuropsych takes plavix for stroke prevention; possibly had a TIA Anesthetic Plan ASA status: 2 Anesthesia: General Other: Hx traumatic head injury - L pupil is fixed and does not dilate, and R eye does not look down Risk of > 500 ml blood loss (7ml/kg in children): No Medications/Allergies Home Medications ?Medication ?Instructions ?Recorded ?Confirmed ?Last Taken ?Type Folic Acid Vitamin B9 1,000 mg PO DAILY 03/10/24 0 11/27/24 11/27/24 History Iron 36 mg plus VC 36 mg PO DAILY 03/10/24/04/1511/27/24 History acetaminophen 500 mg tablet 500 mg PO Q6H PRN Pain 11/21/24 08/24/24 History (Tylenol Extra Strength) avmacol with myrosimax 1 tab PO DAILY 03/10/2410/2408/24/24 History calcium carbonate 1,200 mg PO BID 03/10/2408/24/24 History carica papaya (Papaya Enzyme 1 tab PO TID 03/10/2404/1511/27/24 History tablet) cholecalciferol (vitamin D3) 50 50 mcg PO DAILY 11/27/24 11/27/24 History mcg (2,000 unit) capsule clobetasol 0.05 % scalp solution 1 applic topical JUDITH Y 03/10/24 11/27/24 08/24/24 History cranberry 500 mg capsule 2,000 mg PO DAILY 03/10/24 0 11/27/24 11/27/24 History docusate sodium 100 mg capsule 100 mg PO DAILY PRN Con stipation 03/10/24 11/27/24 08/24/24 History (Colace) [id number] C-Mn 1 cap PO BID 03/10/24 0 11/27/24 11/27/24 History capsule (Glucosamine-Chondroitin Complex capsule) ibuprofen 200 mg tablet 200 mg PO Q6H PRN Pain 03/1011/27/24 08/24/24 History ketoconazole 2 % shampoo 1 applic topical Q14D PRN It allan 03/10/24 11/27/24 08/24/24 History loratadine 10 mg tablet (Allergy 10 mg PO DAILY 11/27/24 08/24/24 History Relief (loratadine)) magnesium 250 mg tablet 500 mg PO DAILY 03/10/2404/1511/27/24 History multivitamin 1 tab PO DAILY 03/10/2404/1511/27/24 History turmeric 400 mg capsule 800 mg PO DAILY 03/10/2404/1511/27/24 History vitamin B complex 1 cap PO DAILY 03/10/2404/1511/27/24 History zinc acetate 50 mg (zinc) capsule 30 mg PO DAILY 03/1011/27/24 11/27/24 History (Galzin) ruxolitinib 10 mg tablet (Jakafi) 10 mg PO DAILY 07/1111/27/24 11/27/24 History clopidogrel 75 mg tablet 75 mg PO DAILY #90 tabs 10/2211/27/24 11/27/24 Rx oxybutynin chloride 5 mg 5 mg PO DAILY mixed incontin ence 11/21/24 11/27/24 11/27/24 Rx tablet,extended release 24 hr #90 tabs furosemide 20 mg tablet 40 mg PO DAILY 11/27/2404/1511/27/24 History Allergies Allergy/AdvReac Type Severity Reaction Status Date / Time Tetanus Vaccines and Toxoid Allergy Unknown Verified 11/21/24 14:35 Predisone Allergy Intermediate confusion Uncoded 11/21/24 14:35 PFS Anesthesia Medical History History of chronic myeloid leukemia FH: total knee replacement Surgical History H/O tubal ligation History of appendectomy 1965 Family History Mother Diabetes Hypertension Sister CAD (coronary artery disease) Heart disease Hypertension Diabetes Father Lymphoma Brother Hypertension Denies family history of Colon cancer Ovarian cancer Hyperlipidemia Breast cancer Uterine cancer Thyroid disease Stroke Social History Smoking and tobacco/nicotine status: never used tobacco/nicotine Alcohol intake: never Substance/Drug Use: never Household members: spouse Marital status: Marital status details: 18 Number of children: 4 Current 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 status: retired Pam/Judaism: Sabianism Data Anesthesia Cardiac Studies: No Data to Display
--- NOTE | 2024-11-27 11:02 | ANES.PREANE2 ---
Pre-Anesthetic Assessment Height/Weight: Height 1.57 m Operation Date: 12/02/24 11:40 Proposed Procedures p Anterior Colporrhaphy 25363, 48036,27773, N81.10, N81.6, N39.46(Not Applicable) - Derick Maxwell MD s Posterior Repair Posterior Colporrhaphy(Not Applicable) - MD leola Mendez Sling Single Incision Sling(Not Applicable) - MD leola Mendez Sacrospinous Ligament Suspension Sacrospinous Fixation(Not Applicable) - Derick Maxwell MD Familial anesthetic complications: None Social No alcohol and No tobacco Exam alert, oriented x 3, clear to auscultation bilaterally and regular rate & rhythm Airway Mallampati: Class I Dentition: full Neuropsych takes plavix for stroke prevention; possibly had a TIA Anesthetic Plan ASA status: 2 Anesthesia: General Other: Hx traumatic head injury - L pupil is fixed and does not dilate, and R eye does not look down Risk of > 500 ml blood loss (7ml/kg in children): No Medications/Allergies Home Medications ?Medication ?Instructions ?Recorded ?Confirmed ?Last Taken ?Type Folic Acid Vitamin B9 1,000 mg PO DAILY 03/10/24 11/27/24 11/27/24 History Iron 36 mg plus VC 36 mg PO DAILY 03/10/24 11/27/24 11/27/24 History acetaminophen 500 mg tablet 500 mg PO Q6H PRN Pain 03/10/24 11/21/24 08/24/24 History (Tylenol Extra Strength) avmacol with myrosimax 1 tab PO DAILY 03/10/24 11/21/24 08/24/24 History calcium carbonate 1,200 mg PO BID 03/10/24 11/21/24 08/24/24 History carica papaya (Papaya Enzyme 1 tab PO TID 03/10/24 11/27/24 11/27/24 History tablet) cholecalciferol (vitamin D3) 50 50 mcg PO DAILY 03/10/24 11/27/24 11/27/24 History mcg (2,000 unit) capsule clobetasol 0.05 % scalp solution 1 applic topical DAILY 03/10/24 11/27/24 08/24/24 History cranberry 500 mg capsule 2,000 mg PO DAILY 03/10/24 11/27/24 11/27/24 History docusate sodium 100 mg capsule 100 mg PO DAILY PRN Constipation 03/10/24 11/27/24 08/24/24 History (Colace) [id number] C-Mn 1 cap PO BID 03/10/24 11/27/24 11/27/24 History capsule (Glucosamine-Chondroitin Complex capsule) ibuprofen 200 mg tablet 200 mg PO Q6H PRN Pain 03/10/24 11/27/24 08/24/24 History ketoconazole 2 % shampoo 1 applic topical Q14D PRN Itching 03/10/24 11/27/24 08/24/24 History loratadine 10 mg tablet (Allergy 10 mg PO DAILY 03/10/24 11/27/24 08/24/24 History Relief (loratadine)) magnesium 250 mg tablet 500 mg PO DAILY 03/10/24 11/27/24 11/27/24 History multivitamin 1 tab PO DAILY 03/10/24 11/27/24 11/27/24 History turmeric 400 mg capsule 800 mg PO DAILY 03/10/24 11/27/24 11/27/24 History vitamin B complex 1 cap PO DAILY 03/10/24 11/27/24 11/27/24 History zinc acetate 50 mg (zinc) capsule 30 mg PO DAILY 03/10/24 11/27/24 11/27/24 History (Galzin) ruxolitinib 10 mg tablet (Jakafi) 10 mg PO DAILY 07/11/24 11/27/24 11/27/24 History clopidogrel 75 mg tablet 75 mg PO DAILY #90 tabs 11/03/24 11/27/24 11/27/24 Rx oxybutynin chloride 5 mg 5 mg PO DAILY mixed incontinence 11/21/24 11/27/24 11/27/24 Rx tablet,extended release 24 hr #90 tabs furosemide 20 mg tablet 40 mg PO DAILY 11/27/24 11/27/24 11/27/24 History Allergies Allergy/AdvReac Type Severity Reaction Status Date / Time Tetanus Vaccines and Toxoid Allergy Unknown Verified 11/21/24 14:35 Predisone Allergy Intermediate confusion Uncoded 11/21/24 14:35 [facility] Anesthesia Medical History History of chronic myeloid leukemia FH: total knee replacement Surgical History H/O tubal ligation History of appendectomy 1965 Family History Mother Diabetes Hypertension Sister CAD (coronary artery disease) Heart disease Hypertension Diabetes Father Lymphoma Brother Hypertension Denies family history of Colon cancer Ovarian cancer Hyperlipidemia Breast cancer Uterine cancer Thyroid disease Stroke Social History Smoking and tobacco/nicotine status: never used tobacco/nicotine Alcohol intake: never Substance/Drug Use: never Household members: spouse Marital status: Marital status details: 18 Number of children: 4 Current 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 status: retired Pam/Moravian: Denominational Data Anesthesia Cardiac Studies: No Data to Display
[2024-12-02] VITALS (13 sets, daily range): BP systolic 110–153; BP diastolic 51–78; PULSE 66–107; RESP 16–17; TEMP 36.3–36.8; O2SAT 91–97
--- NOTE | 2024-12-02 10:23 | ANES.PREANE2 ---
Pre-Anesthetic Assessment Height/Weight: Height 5 ft 2 in Weight 135 lb Temp Pulse Resp BP Pulse Ox O2 Del Method 97.5 F L 107 H 17 150/61 97 Room Air 12/02/24 10:18 12/02/24 10:18 12/02/24 10:18 12/02/24 10:18 12/02/24 10:18 12/02/24 10:18 Preop Diagnosis: cystocele, rectocele, mixed incontinence Operation Date: 12/02/24 11:40 Proposed Procedures p Anterior Colporrhaphy 03184, 74752,88629, N81.10, N81.6, N39.46(Not Applicable) - Derick Maxwell MD s Posterior Repair Posterior Colporrhaphy(Not Applicable) - MD leola Mendez Sling Single Incision Sling(Not Applicable) - Derick Maxwell MD s Sacrospinous Ligament Suspension Sacrospinous Fixation(Not Applicable) - Derick Maxwell MD Was Beta Alka taken within 24 hours: N/A Was Clonidine taken within 24 hours: N/A Last intake: Intake Last Liquid Date 12/02/24 Last Liquid Time 12:01 Last Solid Date 12/01/24 Last Solid Time 19:00 Social No alcohol and No tobacco Exam alert, oriented x 3, clear to auscultation bilaterally and regular rate & rhythm Airway Submandibular: within normal limits Cervical ROM: within normal limits Mallampati: Class I Comments: Comments: Upper dentures Anesthetic Plan ASA status: 2 Anesthesia: General Other: No prior issues with anesthesia NPO since yesterday Prior TIA, on chronic Plavix. Patient has recently had a sinus infection. Was placed on doxycycline on 11/28/2024. States that the symptoms have cleared up. Repeat CBC pending EKG show sinus tachycardia with PVCs Plan for general anesthetic Medications/Allergies Home Medications ?Medication ?Instructions ?Recorded ?Confirmed ?Last Taken ?Type Folic Acid Vitamin B9 1,000 mg PO DAILY 03/10/24 12/02/24 11/25/24 History Iron 36 mg plus VC 36 mg PO DAILY 03/10/24 12/02/24 08/24/24 History acetaminophen 500 mg tablet 500 mg PO Q6H PRN Pain 03/10/24 12/02/24 08/24/24 History (Tylenol Extra Strength) avmacol with myrosimax 1 tab PO DAILY 03/10/24 11/30/24 11/25/24 History calcium carbonate 1,200 mg PO BID 03/10/24 12/02/24 12/01/24 History carica papaya (Papaya Enzyme 1 tab PO TID 03/10/24 12/02/24 11/25/24 History tablet) cholecalciferol (vitamin D3) 50 50 mcg PO DAILY 03/10/24 12/02/24 11/25/24 History mcg (2,000 unit) capsule cranberry 500 mg capsule 2,000 mg PO DAILY 03/10/24 12/02/24 11/25/24 History docusate sodium 100 mg capsule 100 mg PO DAILY PRN Constipation 03/10/24 12/02/24 08/24/24 History (Colace) [id number] C-Mn 1 cap PO BID 03/10/24 12/02/24 11/25/24 History capsule (Glucosamine-Chondroitin Complex capsule) ibuprofen 200 mg tablet 200 mg PO Q6H PRN Pain 03/10/24 11/30/24 08/24/24 History loratadine 10 mg tablet (Allergy 10 mg PO DAILY 03/10/24 12/02/24 08/24/24 History Relief (loratadine)) magnesium 250 mg tablet 500 mg PO DAILY 03/10/24 12/02/24 11/25/24 History multivitamin 1 tab PO DAILY 03/10/24 12/02/24 11/25/24 History turmeric 400 mg capsule 800 mg PO DAILY 03/10/24 12/02/24 11/25/24 History vitamin B complex 1 cap PO DAILY 03/10/24 12/02/24 11/25/24 History zinc acetate 50 mg (zinc) capsule 30 mg PO DAILY 03/10/24 12/02/24 11/25/24 History (Galzin) clopidogrel 75 mg tablet 75 mg PO DAILY #90 tabs 11/03/24 11/30/24 11/27/24 Rx oxybutynin chloride 5 mg 5 mg PO DAILY mixed incontinence 11/21/24 12/02/24 11/30/24 Rx tablet,extended release 24 hr #90 tabs furosemide 20 mg tablet 40 mg PO DAILY 11/27/24 12/02/24 Unknown History dicyclomine 10 mg capsule 10 mg PO BID #60 caps 11/28/24 12/02/24 12/01/24 Rx doxycycline hyclate 100 mg tablet 100 mg PO DAILY #7 tabs 11/28/24 12/02/24 12/01/24 Rx Allergies Allergy/AdvReac Type Severity Reaction Status Date / Time Tetanus Vaccines and Toxoid Allergy Unknown Verified 11/30/24 15:24 Predisone Allergy Intermediate confusion Uncoded 11/30/24 15:24 [facility] Anesthesia Medical History History of chronic myeloid leukemia FH: total knee replacement Surgical History H/O tubal ligation History of appendectomy 1965 Family History Mother Diabetes Hypertension Sister CAD (coronary artery disease) Heart disease Hypertension Diabetes Father Lymphoma Brother Hypertension Denies family history of Colon cancer Ovarian cancer Hyperlipidemia Breast cancer Uterine cancer Thyroid disease Stroke Social History Smoking and tobacco/nicotine status: never used tobacco/nicotine Alcohol intake: never Substance/Drug Use: never Household members: spouse Marital status: Marital status details: 18 Number of children: 4 Current 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 status: retired Pam/Episcopalian: Rastafarian Data Anesthesia 12/02/24 10:30 12/02/24 10:30 Cardiac Studies: No Data to Display
[2024-12-02] MEDS: sodium chloride 0.9% 1,000 ML 30 ML IV (10:31)
[2024-12-02] MEDS: enoxaparin 40 mg/0.4 mL Syringe SUBCUT (10:39)
[2024-12-02] MEDS: ceFAZolin 2,000 mg SDV 2000 MG IVP (10:49)
[2024-12-02] MEDS: metroNIDAZOLE IV 500 MG/100 ML PREMIX 100 MG IV (10:56)
[2024-12-02 10:57] LABS: Basophils % 0.1 %; Eosinophils # 1.8 10^3/uL (0.0-0.8); Eosinophils % 13.2 %; Hematocrit 30.6 % (36-47); Lymphocytes # 1.9 10^3/uL (0.8-4.8); Lymphocytes % 13.8 %; Mean Corpuscular HGB Conc 32.7 g/dL (30-55); Mean Corpuscular Hemoglobin 30.7 pg (27-33); Mean Corpuscular Volume 93.9 fl (85-98); Mean Platelet Volume 12.5 fL (7.4-10.4); Monocytes # 6.9 10^3/uL (0.2-0.9); Monocytes % 51.5 %; Neutrophils # 2.72 10^3/uL (1.8-7.7); Neutrophils % 20.3 %; Nucleated Red Blood Cells % 0 %; Platelet Count 216 10^3/cmm (157-399); Red Blood Count 3.26 10^6/uL (3.85-5.65); Red Cell Distribution Width 15.8 % (12.1-15.1); White Blood Count 13.46 10^3/uL (3.29-11.43)
[2024-12-02 11:11] LABS: Alanine Aminotransferase 9 U/L (0-33); Albumin Level 4.3 g/dL (3.5-5.2); Alkaline Phosphatase 139 U/L (35-105); Anion Gap 19.8 (5-19); Aspartate Amino Transferase 13 U/L (0-32); Blood Urea Nitrogen 16 mg/dL (8-23); Calcium 9.6 mg/dL (8.5-10.5); Carbon Dioxide 22 mmol/L (22-29); Chloride 99 mmol/L (98-107); Globulin 3.4 g/dL (1.3-4.6); Glucose 109 mg/dL (65-115); Osmolality Calculated 286 mOsm/kg (285-295); Potassium 3.8 mmol/L (3.5-5.1); Sodium 137 mmol/L (136-145); Total Bilirubin 0.7 mg/dL (0.15-1.2); Total Protein 7.7 g/dL (6.6-8.7)
[2024-12-02 11:12] LABS: Urine Appearance Clear (CLEAR)
[2024-12-02 11:13] LABS: Add Urine Culture? No; Add Urine Microscopic? YES; Bacteria Urine 1+ /hpf; Squamous Epithelial Cell Urine 0-4 /hpf (0-5); UA Manual Slide Review YES; WBC Urine 0-4 /hpf (0-5)
[2024-12-02 11:14] LABS: Urine Color Yellow (Yellow)
--- NOTE | 2024-12-02 11:46 | W.PM.OPSUD ---
Surgery/Procedure H&P Update DATE OF PROCEDURE: December 02, 2024 DATE H&P PERFORMED: 11/21/24 H&P UPDATE INFORMATION: I have reviewed H&P completed within last 30 days, I have examined patient prior to procedure and No changes to prior documentation PREOP DIAGNOSIS: cystocele, rectocele, mixed incontinence PLANNED PROCEDURE: Operation Date: 12/02/24 11:40 Proposed Procedures p Anterior Colporrhaphy 71598, 89082,35404, N81.10, N81.6, N39.46(Not Applicable) - Derick Maxwell MD s Posterior Repair Posterior Colporrhaphy(Not Applicable) - Derick Maxwell MD s Sling Single Incision Sling(Not Applicable) - Derick Maxwell MD s Sacrospinous Ligament Suspension Sacrospinous Fixation(Not Applicable) - Derick Maxwell MD
[2024-12-02] MEDS: lidocaine-epi 2% PF 1:200,000 20 mL SDV 10 ML INJECTION (12:59)
--- NOTE | 2024-12-02 14:27 | P.BOP_ITS ---
Date of Procedure: 12/02/24 Surgeon: Derick Maxwell MD Surgical Assistant(s): Procedure(s) performed: Anterior colporrhaphy augmented with allograft, mid urethral sling Findings of the procedure(s): Cystocele stage III Estimated blood loss: 50 Specimen(s) removed: Post-operative diagnosis: Status post anterior colporrhaphy and mid urethral sling
--- NOTE | 2024-12-02 14:28 | PM.OP ---
Operative Report Date of procedure: December 02, 2024 Pre-op diagnosis: Cystocele stage III Mixed urinary incontinence Rectocele Post-op diagnosis: Cystocele stage III Mixed urinary incontinence Procedure done: Anterior colporrhaphy augmented with allograft Mid urethral sling Implants: Coloplast dermis allograft Coloplast Altis sling Surgeon: Derick Maxwell MD Estimated blood loss (mL): 50 IV fluids (mL): 800 Urine output (mL): 200 Procedure: After obtaining informed consent, the patient was taken to the operating room and placed in the supine position, given general anesthesia, and prepped and draped in sterile fashion. The abdomen, vulva and vagina were prepped and draped in a sterile manner. A time out procedure was performed. The anterior vaginal mucosa beneath the midurethra was infiltrated with 2% lidocaine with epinephrine. A vertical midline incision was made beneath the midurethra, nearly 1.5 cm length. Careful submucosal dissection was performed bilaterally up to the interior portion of the inferior pubic ramus. The insertion of adductor longus tendon on the patient?s pubic ramus was identified as reference land brooke. Palpated the notch along the internal edge of ischiopubic ramus where the adductor longus tendon and the inferior pubic ramus meet. The Altis single incision sling (SIS) was selected. Then the needle of the SIS inserted aiming at the location of this notch. One of the integrated self-fixating tips place onto the needle by sliding it over the end of the needle. The needle/sling assembly was inserted toward the location of identified reference notch making sure that the flat of the handle is perpendicular to the desired path. The needle was tracked along the posterior surface of the ischiopubic ramus until the midline brooke on the mesh is approximately at the midline position under the urethra. The needle was removed and the same was repeated on the contralateral side until the appropriate sling tension under the urethra was achieved ensuring that the mesh lays flat. The needle was removed and vaginal incision was closed in a running interlocking fashion with 2-0 Vicryl. The vaginal mucosa was then injected in the midline with 2% lidocaine with epinephrine. The vaginal mucosa was scored in the midline with the Bovie approximately 1 cm medial to the urethral meatus to 1 cm distal to the cervix. This vaginal mucosa was then undermined and then incised in the midline with the Metzenbaum scissors. The lateral aspects of the vaginal mucosa were then grasped with the Allis clamps and the vaginal mucosa was then dissected off the underlying fascia with the Metzenbaum scissors. Again, there was noted to be quite a bit of oozing at the incision, which was controlled with cautery. After adequate dissection was performed, bilaterally. A coloplast Dermis allograft was modified at time of application to fit spacea, 3 x 3 cm piece. The Coloplast allograft was placed in front of cystocele ready to be implanted facing the vagina mucosa. Suture is placed at distal end of graft and placed towards vaginal cuff. Final suture is placed on proximal portion of the graft to complete the placement overlying the bladder. Then Interrupted vertical mattress sutures of 0 Vicryl were used to elevate the cystocele superiorly. The excessive vaginal mucosa was then trimmed with the Metzenbaum scissors and the vaginal mucosa was then reapproximated in the running interlocking fashion with 2-0 Vicryl. Then the Goodman catheter was removed and cystoscope was inserted. The bladder was filled with sterile water. Complete evaluation of the bladder mucosa was performed noting no lacerations, dimpling, tears, bleeding of the mucosa or muscular layers. Both ureteral orifices were identified. Prompt excretion of urine from both ureteral orifices was noted. Cystoscope was withdrawn. The Goodman catheter was replaced. Excellent hemostasis was obtained. A vaginal pack is placed overnight as postoperative support for the vaginal tissues after graft placement and closure of vaginal incisions. Sponge, lap, needle, and instrument counts were correct times three. The patient was taken to the recovery room, awake and in stable condition.
--- NOTE | 2024-12-02 14:35 | ANE.PACU2 ---
Inpatient post-anesthesia follow up: Airway intact: Yes Vital signs: Temperature 98.3 F Pulse Rate 108 Respiratory Rate 16 Blood Pressure 121/68 Pulse Oximetry 98 Oxygen Delivery Me thod Room Air Oxygen Flow Rate Fraction of Inspir ed Oxygen Hydration adequate: Yes Nausea and vomiting: No Pain level: 1 Mental status: Baseline
[2024-12-02] MEDS: dextrose 5%-lactated ringers 1,000 ML 125 ML IV (15:31)
[2024-12-02] MEDS: ondansetron 2 mg/ML SDV 2 mL 4 MG IVP (15:31)
[2024-12-02] MEDS: ketorolac 30 mg/mL INJ IVP ×2 (15:31→21:05)
[2024-12-02] MEDS: docusate sodium 100 mg Capsule PO (18:29)
[2024-12-02] MEDS: dicyclomine 10 mg Capsule PO (18:30)
[2024-12-02] MEDS: calcium carbonate 600 mg Tablet 1200 MG PO (18:30)
[2024-12-02] MEDS: sodium chloride 0.9% 500 ML IV (22:17)
[2024-12-03] MEDS: dextrose 5%-lactated ringers 1,000 ML 125 ML IV (00:20)
[2024-12-03] MEDS: sodium chloride 0.9% 500 ML IV (02:24)
[2024-12-03] MEDS: FUROsemide 10 mg/mL SDV 2mL 20 MG IVP (02:27)
[2024-12-03] MEDS: ketorolac 30 mg/mL INJ IVP (03:00)
[2024-12-03 04:17] VITALS: BP 124/65; PULSE 67; RESP 15; TEMP 36.6; O2SAT 95
--- NOTE | 2024-12-03 05:47 | PC.NURSE ---
vaginal packing removed at this time. pt tolerated well
[2024-12-03 05:49] LABS: Hematocrit 25.2 % (36-47); Mean Corpuscular HGB Conc 32.1 g/dL (30-55); Mean Corpuscular Hemoglobin 30.6 pg (27-33); Mean Corpuscular Volume 95.1 fl (85-98); Mean Platelet Volume 12.1 fL (7.4-10.4); Platelet Count 165 10^3/cmm (157-399); Red Blood Count 2.65 10^6/uL (3.85-5.65); Red Cell Distribution Width 15.7 % (12.1-15.1)
--- NOTE | 2024-12-03 08:09 | P.DS_ITS ---
Discharge Providers ENT CONSULTANT Date of Admission: 12/02/24 11:33 Date of Discharge: 12/03/24 Attending Provider at Admission: Derick Maxwell MD Attending Provider at Discharge: Derick Maxwell MD Primary Care Provider: Sandra Platt MD Reason for Visit Reason for Visit: N81.10 Hospital Course Hospital Course Mrs. Cortés 79-year-old female with a history of a mixed urinary incontinence, cystocele and rectocele. Admitted for planned anterior colporrhaphy, mid urethral sling, posterior colporrhaphy. Anterior colporrhaphy and mid urethral sling were performed without complications. After anterior colporrhaphy it was noted no need for posterior colporrhaphy. Overnight observation significant for low urine output 1 time that resolved after IV fluid bolus. She is afebrile and hemodynamically stable postoperative day 1. Ambulating without difficulty. Tolerating diet well. She was counseled regarding pelvic rest for 6 weeks (no sex, no tampons, no vaginal douches). Return to the emergency room if any fever, increased bleeding or pain. She was also advised against heavy weight lifting limitation to 10 pounds. Physical Exam Narrative: GA: Alert and oriented ?3. HEENT: WNL. Heart: Regular rate and rhythm. Lungs: Clear to auscultation bilaterally. Abdomen: Bowel sounds present, nontender. [employer]: spotting bleeding. Extremities: No edema, no cyanosis, no calves pain. Urinary Catheter Management: Goodman: Cath Placed During This Visit: yes, but has since been removed by the nurse Reason for Continuing Indwelling Catheter: Decision to DC Catheter Urinary Catheter Date of Insertion: 12/02/24 Urinary Catheter Time of Insertion: 12:51 Date Urinary Catheter Removed: 12/03/24 Time Urinary Catheter Discontinued: 05:30 History History History 2 Term 1 0 Miscarriages/Ectopic 1 Living Children 1 Discharge Data Studies Completed and Pending Laboratory Results WBC 17.30 10^3/uL (3.29-11.43) H 12/03/24 05:40 RBC 2.65 10^6/uL (3.85-5.65) L 12/03/24 05:40 Hgb 8.10 g/dL (11.27-16.99) L 12/03/24 05:40 Hct 25.2 % (36-47) L 12/03/24 05:40 MCV 95.1 fl (85-98) 12/03/24 05:40 MCH 30.6 pg (27-33) 12/03/24 05:40 MCHC 32.1 g/dL (30-55) 12/03/24 05:40 RDW 15.7 % (12.1-15.1) H 12/03/24 05:40 Plt Count 165 10^3/cmm (157-399) 12/03/24 05:40 MPV 12.1 fL (7.4-10.4) H 12/03/24 05:40 Neut % (Auto) 20.3 % 12/02/24 10:30 Lymph % (Auto) 13.8 % 12/02/24 10:30 [place] % (Auto) 51.5 % 12/02/24 10:30 Eos % (Auto) 13.2 % 12/02/24 10:30 Baso % (Auto) 0.1 % 12/02/24 10:30 Neut # (Auto) 2.72 10^3/uL (1.8-7.7) 12/02/24 10:30 Lymph # (Auto) 1.9 10^3/uL (0.8-4.8) 12/02/24 10:30 [place] # (Auto) 6.9 10^3/uL (0.2-0.9) H 12/02/24 10:30 Eos # (Auto) 1.8 10^3/uL (0.0-0.8) H 12/02/24 10:30 Baso # (Auto) 0.0 10^3/uL (0.0-0.1) 12/02/24 10:30 Nucleated RBC % (auto) 0 % 12/02/24 10:30 Nucleated RBCs # 0.0 /100WBC 12/02/24 10:30 Sodium 137 mmol/L (136-145) 12/02/24 10:30 Potassium 3.8 mmol/L (3.5-5.1) 12/02/24 10:30 Chloride 99 mmol/L (98-107) 12/02/24 10:30 Carbon Dioxide 22 mmol/L (22-29) 12/02/24 10:30 Anion Gap 19.8 (5-19) H 12/02/24 10:30 BUN 16 mg/dL (8-23) 12/02/24 10:30 Creatinine 0.8 mg/dL (0.5-0.9) 12/02/24 10:30 GFR Calculation Not Reportable 12/02/24 10:30 Glucose 109 mg/dL (65-115) 12/02/24 10:30 Calculated Osmolality 286 mOsm/kg (285-295) 12/02/24 10:30 Calcium 9.6 mg/dL (8.5-10.5) 12/02/24 10:30 Total Bilirubin 0.7 mg/dL (0.15-1.2) 12/02/24 10:30 AST 13 U/L (0-32) 12/02/24 10:30 ALT 9 U/L (0-33) 12/02/24 10:30 Alkaline Phosphatase 139 U/L (35-105) H 12/02/24 10:30 Total Protein 7.7 g/dL (6.6-8.7) 12/02/24 10:30 Albumin 4.3 g/dL (3.5-5.2) 12/02/24 10:30 Globulin 3.4 g/dL (1.3-4.6) 12/02/24 10:30 Urine Color Yellow (Yellow) 12/02/24 10:05 Urine Appearance Clear (CLEAR) 12/02/24 10:05 Urine pH TNP 12/02/24 10:05 Ur Specific [place] TNP 12/02/24 10:05 Urine Protein TNP 12/02/24 10:05 Urine Glucose (UA) TNP 12/02/24 10:05 Urine Ketones TNP 12/02/24 10:05 Urine Blood TNP 12/02/24 10:05 Urine Nitrate TNP 12/02/24 10:05 Urine Bilirubin TNP 12/02/24 10:05 Urine Urobilinogen TNP 12/02/24 10:05 Ur Leukocyte Esterase TNP 12/02/24 10:05 Urine RBC None /hpf (0-2) 12/02/24 10:05 Urine WBC 0-4 /hpf (0-5) H 12/02/24 10:05 Ur Squamous Epith Cells 0-4 /hpf (0-5) H 12/02/24 10:05 Amorphous Sediment Not Reportable 12/02/24 10:05 Urine Bacteria 1+ /hpf (NONE) H 12/02/24 10:05 Blood Type B Positive 12/02/24 10:30 Rho(D) Type Rh positive 12/02/24 10:30 Antibody Screen Negative 12/02/24 10:30 Vitals Last Vital Signs Temp 98 F 12/03/24 04:17 Pulse 67 12/03/24 04:17 Resp 15 12/03/24 04:17 BP 124/65 12/03/24 04:17 Pulse Ox 95 12/03/24 04:17 O2 Del Method Room Air 12/03/24 04:17 Results Labs OB ([facility]): Blood Type B Positive 12/02/24 Antibody Screen Negative 12/02/24 Hct 25.2 % (36-47) L 12/03/24 Hgb 8.10 g/dL (11.27-16.99) L 12/03/24 Rho(D) Type Rh positive 12/02/24 Plt Count 165 10^3/cmm (157-399) 12/03/24 Discharge Plan Discharge Patient Disposition: Home Condition: Stable Prescriptions: New hydrocodone-acetaminophen 5-325 mg tablet 1 tab PO Q4H PRN (Reason: pain) Qty: 20 0RF ferrous sulfate [Iron (ferrous sulfate)] 325 mg (65 mg iron) tablet 325 mg PO BID Qty: 60 0RF ibuprofen 800 mg tablet 800 mg PO TID PRN (Reason: pain) Qty: 60 0RF acetaminophen 325 mg capsule 325 mg PO Q4H PRN (Reason: fever or pain) Qty: 60 0RF docusate sodium [Colace] 100 mg capsule 100 mg PO BID Qty: 60 0RF nitrofurantoin macrocrystal 100 mg capsule 100 mg PO BID 7 Days Qty: 14 0RF Rx Instructions: must administer with a meal/food Continued doxycycline hyclate 100 mg tablet 100 mg PO DAILY Qty: 7 0RF dicyclomine 10 mg capsule 10 mg PO BID Qty: 60 0RF multivitamin Tablet 1 tab PO DAILY Papaya Enzyme Tablet 1 tab PO TID Rx Instructions: administer with meals Galzin 50 mg (zinc) capsule 30 mg PO DAILY Glucosamine-Chondroitin Complx Capsule 1 cap PO BID acetaminophen [Tylenol Extra Strength] 500 mg tablet 500 mg PO Q6H PRN (Reason: Pain) calcium carbonate 600 mg calcium (1,500 mg) tablet 1,200 mg PO BID ibuprofen 200 mg tablet 200 mg PO Q6H PRN (Reason: Pain) docusate sodium [Colace] 100 mg capsule 100 mg PO DAILY PRN (Reason: Constipation) magnesium 250 mg tablet 500 mg PO DAILY loratadine [Allergy Relief (loratadine)] 10 mg tablet 10 mg PO DAILY cranberry 500 mg capsule 2,000 mg PO DAILY Rx Instructions: administer with meals vitamin B complex Capsule 1 cap PO DAILY cholecalciferol (vitamin D3) 50 mcg (2,000 unit) capsule 50 mcg PO DAILY turmeric 400 mg capsule 800 mg PO DAILY Folic Acid Vitamin B9 1,000 mg 1,000 mg PO DAILY Iron 36 mg plus VC 36 mg PO DAILY Rx Instructions: with 4 oz prune juice avmacol with myrosimax 1 tab PO DAILY Rx Instructions: daily with meal clopidogrel 75 mg tablet 75 mg PO DAILY Qty: 90 1RF oxybutynin chloride 5 mg tablet extended release 24hr 5 mg PO DAILY Qty: 90 3RF Rx Instructions: TAKE 1 TABLET BY MOUTH DAILY furosemide 20 mg tablet 40 mg PO DAILY Discharge Orders: Discharge Order (Routine); Ordered 12/03/24 Ordered By: Derick Maxwell Referrals: Derick Maxwell MD [Physician] - 2 weeks Discharge Diet: Soft Mechanical Discharge Activity: Limit activity as instructed Patient Instructions: Acute Wound Care (DC), Cystoscopy (DC), Bladder Sling for Women (DC), Anterior Vaginal Repair (DC), Opioid Safety, Post Anesthesia Care Activity Restrictions/Additional Instructions: 1. Please call [facility] on next working day to make your post-operative appointment in 2 weeks. 2. Please stay home until you come back to the clinic on first post-hospatiliza tion check up. 3. Please follow instructions on your medications CAREFULLY. 4. If you have abdominal incision, do not cover it unless dressing is necessary because of drainage. OK to shower, but avoid bath. Leave steri-strips until they fall off. If they are still on one week after surgery, you may remove them. 5. If you had vaginal surgery or vaginal repair, Dr. Maxwell may instruct you to take SITZ bath. 6. Yellow, blood tinged odorous vaginal discharge is usually normal after hysterectomy or vaginal surgeries. 7. No SEXUAL INTERCOURSE, tampons, or douches until you are completely released from the post-operative care. 8. Avoid constipation by eating right and maybe using some Metamucil or Milk of Magnesia. 9. All prescription refills are given during the working hours. Please do no wait till it runs out. Call the clinic at [phone] before your medication runs out. The clinic will get in touch with your doctor to prescribe medications if necessary. 10. Please remain within 40 mile radius from our hospital because emergencies do happen now and then during the post-operative period. 11. If you have stairs at home, take one step at a time slowly and minimize the number of trips. It helps to stay in one floor for the next few days. No lifting except what you can lift by one hand until you are released from the post-operative care. 12. Driving is discouraged until you are well healed. It may be 3-4 weeks before you feel strong enough to drive. You should be able to turn and look through the rear window without pain and you should be able to push the brake pedal very hard without pain before you drive. No fast rules, but SAFETY should be your primary concern. DO NOT drive if you are on sedating medications such as narcotics. 13. Call the clinic (during working hours) to make urgent appointment or go to the Emergency room, if any of the following occurs: i. Vaginal bleeding becomes heavy, more than a period. ii. Incision becomes red and sore, or drains pus. iii. Your TEMPERATURE is over 100.4F or you have chill. iv. IV site becomes red and swollen (a little ``knot?? is usually OK) v. Persistent nausea and vomiting vi. Persistent constipation or diarrhea vii. Rash or allergic reaction to medications. Discharge Attestations ENT CONSULTANT Time Spent in Discharge Care*: greater than 30 min Coding Level of Care Code Acute Code for Chg Fwd
[2024-12-03 09:45] VITALS: BP 121/68; PULSE 108; RESP 16; TEMP 36.8; O2SAT 98
== END 2024-12-03 09:45 | disposition home or self-care (01) ==
LOC: OBGYN 11:33
PROVIDERS: Admitting Provider Obstetrics & Gynecology; PCP Family Medicine; Visit Provider Obstetrics & Gynecology
PROC: 0JQC0ZZ Repair Pelvic Region Subcutaneous Tissue and Fascia, Open Approach (ICD-10-PCS; CPT 57240; principal; 2024-12-02 11:30)
PROC: (CPT 57288; 2024-12-02 11:30)
PROC: (CPT 57282; 2024-12-02 11:30)
PROC: 0TJB8ZZ Inspection of Bladder, Via Natural or Artificial Opening Endoscopic (ICD-10-PCS; CPT 52000; 2024-12-02 11:30)
DX: N81.10 Cystocele, unspecified (principal); N39.46 Mixed incontinence; N81.6 Rectocele; Z79.899 Other long term (current) drug therapy; Z88.8 Allergy status to other drugs, medicaments and biological substances
CPT/HCPCS: 57288; 57240; 36415; 51798; 80053; 81001; 85025; 85027; 86850; 86900; 96374; A4216; C1713; C1762; G0378; J0690; J1650; J1885; J1940; J2405; J2704; J3010; J3490; J7030; J7040; J7121

== ENCOUNTER → 2024-12-15 11:13 | Outpatient (BNVA) | payer MEDICARE, OTHER, SELFPAY | PROVIDERS: PCP Family Medicine; Visit Provider Family Medicine | DX: D64.9 Anemia, unspecified (principal) | CPT/HCPCS: 82728; 83540; 85025 ==

== ENCOUNTER → 2025-01-06 08:48 | Outpatient (BNVA) | payer MEDICARE, OTHER, SELFPAY | PROVIDERS: PCP Family Medicine; Visit Provider Orthopaedic Surgery | DX: S32.10XD Unspecified fracture of sacrum, subsequent encounter for fracture with routine healing (principal); X58.XXXD Exposure to other specified factors, subsequent encounter | CPT/HCPCS: 72170; 99213 ==

== ENCOUNTER 2025-01-23 09:35 | Outpatient (RCR) | payer MEDICARE, OTHER, SELFPAY | END 2025-02-04 15:25 | disposition home or self-care (01) | LOC: SPT 09:35 | PROVIDERS: Visit Provider Orthopaedic Surgery | DX: S32.000D Wedge compression fracture of unspecified lumbar vertebra, subsequent encounter for fracture with routine healing (principal); X58.XXXD Exposure to other specified factors, subsequent encounter | CPT/HCPCS: 97110; 97161 ==

== ENCOUNTER 2025-02-11 14:44 | Outpatient (CLI) | payer MEDICARE, OTHER, SELFPAY ==
--- NOTE | 2025-02-11 14:45 | CT_ITS ---
WS: [id number] CT ABDOMEN AND PELVIS WITH CONTRAST HISTORY: weight loss, gi sx, active leukemia TECHNIQUE: Imaging performed of the abdomen and pelvis with IV contrast. Single phase imaging of the abdomen. Coronal and sagittal reformats are submitted. All CT scans at [facility] use at least one of these dose optimization techniques: automated exposure control; mA and/or kV adjustment per patient size (includes targeted exams where dose is matched to clinical indication); or iterative reconstruction. IV CONTRAST: Omnipaque 350; 100 mL IV. Oral contrast: Yes. DLP: 307.46 mGy.cm COMPARISON: 06/24/2024 Lower thorax: 2 mm nodule RIGHT middle lobe. Linear subsegmental atelectasis at the RIGHT lung base. RIGHT lung base granuloma. Heart is normal size. Small hiatal hernia. Liver/biliary system: Stable liver. Prominent diaphragmatic band to the RIGHT lobe superiorly. No intrahepatic dilatation. Gallbladder: Normal. No gallstones or wall thickening. No pericholecystic fluid. Pancreas: Normal size pancreas and pancreatic duct. No adjacent inflammation. Spleen: Spleen is enlarged measuring 15.2 cm in length. Spleen is increased in size from 13.6 cm on the prior exam. There is mild heterogeneity within the spleen which may be secondary to lymphomatous involvement. Adrenal glands: Normal. Right kidney: Normal size kidney. Nonobstructing 3 mm calcification mid kidney. There are a few tiny cortical hypodensities which are too small to characterize. Left kidney: Normal size kidney with nonobstructing calcifications. Aorta: Extensive atherosclerotic plaque throughout the abdominal aorta. Mild plaque extends into the celiac axis and SMA. More moderately calcified splenic artery. There are also a few splenic varices noted. Lymphadenopathy: Numerous small mesenteric and retroperitoneal lymph nodes have developed since 07/21/2024. These lymph nodes are new and noted at several levels including the celiac axis. Celiac axis lymph nodes are poorly defined without oral contrast. There does appear to be numerous lymph nodes new since the prior study. RIGHT lower quadrant lymph nodes are new and subcentimeter. Numerous retroperitoneal lymph nodes are now identified including periaortic and aortocaval. The largest lymph node measures 9 mm in diameter. There are a few more centrally located lymph nodes extending into the pelvis. Lymph nodes within the central pelvis are new but subcentimeter. Free fluid: None. GI tract: No obstruction. Prior appendectomy. Sigmoid diverticular disease without acute diverticulitis. Abdominal wall: Unremarkable abdominal wall. No hernia. Pelvis: Negative urinary bladder. No inguinal enlarged lymph nodes. Bones: L4 osteoporotic fracture with vertebroplasty. CT/CT abdomen pelvis w con* [id number] IMPRESSION: 1. New small but numerous mesenteric and retroperitoneal lymph nodes since 06/24. As the patient does have a history of leukemia these are probably relate d to leukemia. 2. Enlarging spleen with mild heterogeneity. Spleen now measures 15.2 [facility], increased from 13.6 cm on the prior study. 3. No renal obstruction. 4. No ascites. 5. Prior appendectomy. 6. Sigmoid diverticulosis. 7. L4 osteoporotic fracture with vertebroplasty.
[2025-02-11] MEDS: iohexol 350 mg/mL 500 mL Btl (per mL) IV (15:23)
[2025-02-11 15:57] LABS: Blood Urea Nitrogen 11 mg/dL (8-23)
== END 2025-02-11 14:45 | disposition home or self-care (01) ==
PROVIDERS: PCP Family Medicine; Visit Provider Family Medicine
DX: R63.4 Abnormal weight loss (principal); R19.4 Change in bowel habit; R19.7 Diarrhea, unspecified; R63.0 Anorexia; R59.0 Localized enlarged lymph nodes; R16.1 Splenomegaly, not elsewhere classified; D73.89 Other diseases of spleen; Z98.890 Other specified postprocedural states; K57.30 Diverticulosis of large intestine without perforation or abscess without bleeding; M80.88XA Other osteoporosis with current pathological fracture, vertebra(e), initial encounter for fracture; R91.1 Solitary pulmonary nodule; J98.11 Atelectasis; J84.10 Pulmonary fibrosis, unspecified; K44.9 Diaphragmatic hernia without obstruction or gangrene; N28.89 Other specified disorders of kidney and ureter; I70.0 Atherosclerosis of aorta; I70.8 Atherosclerosis of other arteries; I86.8 Varicose veins of other specified sites
CPT/HCPCS: 74177; 82565; 84520

== ENCOUNTER → 2025-02-27 11:30 | Outpatient (BNVA) | payer MEDICARE, OTHER, SELFPAY | PROVIDERS: PCP Family Medicine; Visit Provider Family Medicine | DX: Z79.899 Other long term (current) drug therapy (principal) | CPT/HCPCS: 80048 ==

== ENCOUNTER → 2025-04-16 14:19 | Outpatient (BNVA) | payer MEDICARE, OTHER, SELFPAY | PROVIDERS: PCP Family Medicine; Visit Provider Orthopaedic Surgery | DX: M46.1 Sacroiliitis, not elsewhere classified (principal); M16.0 Bilateral primary osteoarthritis of hip; Z98.890 Other specified postprocedural states | CPT/HCPCS: 72170; 99213 ==

== ENCOUNTER 2025-04-23 09:10 | Outpatient (CLI) | payer MEDICARE, OTHER, SELFPAY ==
[2025-04-23 09:54] LABS: Hematocrit 33.3 % (36-47); Hemoglobin 10.80 g/dL (11.27-16.99); Mean Corpuscular HGB Conc 32.4 g/dL (30-55); Mean Corpuscular Hemoglobin 31.9 pg (27-33); Mean Corpuscular Volume 98.2 fl (85-98); Nucleated Red Blood Cells % 0 %; Platelet Count 278 10^3/cmm (157-399); Red Blood Count 3.39 10^6/uL (3.85-5.65); White Blood Count 20.79 10^3/uL (3.29-11.43)
[2025-04-23 10:20] LABS: Slide Review Slide Review Perform
[2025-04-23 10:29] LABS: Ferritin 368 ng/mL (15-150); Iron 46 ug/dL (37-145); Total Iron Binding Capacity 195 mcg/dl; Unsaturated Iron Binding 149 ug/dL (112-347)
== END 2025-04-23 09:11 | disposition home or self-care (01) ==
PROVIDERS: PCP Family Medicine; Visit Provider Internal Medicine
DX: C93.10 Chronic myelomonocytic leukemia not having achieved remission (principal)
CPT/HCPCS: 36415; 82728; 83540; 83550; 85025

== ENCOUNTER → 2025-05-07 10:42 | Outpatient (BNVA) | payer MEDICARE, OTHER, SELFPAY | PROVIDERS: PCP Family Medicine; Visit Provider Nurse Practitioner Family | DX: L57.8 Other skin changes due to chronic exposure to nonionizing radiation (principal); L81.4 Other melanin hyperpigmentation; D22.39 Melanocytic nevi of other parts of face; L82.1 Other seborrheic keratosis; Z85.820 Personal history of malignant melanoma of skin; Z85.828 Personal history of other malignant neoplasm of skin; Z92.25 Personal history of immunosuppression therapy; Z08 Encounter for follow-up examination after completed treatment for malignant neoplasm; Z85.6 Personal history of leukemia; L57.0 Actinic keratosis | CPT/HCPCS: 17000; 99213 ==

== ENCOUNTER 2025-05-15 13:14 | Outpatient (CLI) | payer MEDICARE, OTHER, SELFPAY ==
--- NOTE | 2025-05-15 | MM_ITS ---
WS: [id number] BILATERAL 3D TOMOSYNTHESIS DIGITAL SCREENING MAMMOGRAPHY WITH CAD CLINICAL INFORMATION: ANNUAL SCREENING HISTORY: Screening mammogram. No current complaints. COMPARISON: 2023 TECHNIQUE: Bilateral CC and MLO views. FINDINGS: Scattered fibroglandular densities bilaterally. No suspicious focal mass, asymmetry, calcifications, or architectural distortion. No evidence of malignancy. Vascular calcification. A few incidental punctate and lucent centered calcifications. MM/MM [facility] tomosynthesis [id number] IMPRESSION: DENSITY: There are scattered areas of fibroglandular density. BI-RADS: 2 - Benign. FOLLOW UP: 1 Year Follow-up Recommend return to annual screening mammography.
== END 2025-05-15 13:15 | disposition home or self-care (01) ==
LOC: RAD 13:15
PROVIDERS: PCP Family Medicine; Visit Provider Family Medicine
DX: Z12.31 Encounter for screening mammogram for malignant neoplasm of breast (principal); R92.323 Mammographic fibroglandular density, bilateral breasts; R92.1 Mammographic calcification found on diagnostic imaging of breast
CPT/HCPCS: 77063; 77067

== ENCOUNTER 2025-05-28 10:22 | Outpatient (CLI) | payer MEDICARE, OTHER, SELFPAY ==
[2025-05-28 11:29] LABS: Alanine Aminotransferase 7 U/L (0-33); Albumin Level 4.3 g/dL (3.5-5.2); Alkaline Phosphatase 136 U/L (35-105); Anion Gap 14.9 (5-19); Aspartate Amino Transferase 7 U/L (0-32); Blood Urea Nitrogen 18 mg/dL (8-23); Calcium 9.3 mg/dL (8.5-10.5); Carbon Dioxide 24 mmol/L (22-29); Chloride 102 mmol/L (98-107); Globulin 3.3 g/dL (1.3-4.6); Glucose 91 mg/dL (65-115); Osmolality Calculated 285 mOsm/kg (285-295); Potassium 3.9 mmol/L (3.5-5.1); Sodium 137 mmol/L (136-145); Total Protein 7.6 g/dL (6.6-8.7)
[2025-05-28 17:32] LABS: Hematocrit 30.3 % (36-47); Hemoglobin 10.10 g/dL (11.27-16.99); Mean Corpuscular HGB Conc 33.3 g/dL (30-55); Mean Corpuscular Hemoglobin 32.2 pg (27-33); Mean Corpuscular Volume 96.5 fl (85-98); Nucleated Red Blood Cells % 0 %; Platelet Count 229 10^3/cmm (157-399); Red Blood Count 3.14 10^6/uL (3.85-5.65); White Blood Count 14.56 10^3/uL (3.29-11.43)
== END 2025-05-28 10:23 | disposition home or self-care (01) ==
LOC: LAB 10:29
PROVIDERS: PCP Family Medicine; Visit Provider Internal Medicine
DX: Z01.89 Encounter for other specified special examinations (principal)
CPT/HCPCS: 36415; 80053; 83615; 85025

== ENCOUNTER → 2025-06-11 13:14 | Outpatient (BNVA) | payer MEDICARE, OTHER, SELFPAY | PROVIDERS: PCP Family Medicine; Visit Provider Nurse Practitioner Family | DX: L57.8 Other skin changes due to chronic exposure to nonionizing radiation (principal); L81.4 Other melanin hyperpigmentation; D22.39 Melanocytic nevi of other parts of face; L82.1 Other seborrheic keratosis; D48.5 Neoplasm of uncertain behavior of skin; Z85.820 Personal history of malignant melanoma of skin; Z85.828 Personal history of other malignant neoplasm of skin; Z92.25 Personal history of immunosuppression therapy | CPT/HCPCS: 11102; 99213 ==

== ENCOUNTER 2025-06-29 13:46 | Outpatient (CLI) | payer MEDICARE, OTHER, SELFPAY ==
[2025-06-29 14:30] LABS: Hematocrit 32.7 % (36-47); Hemoglobin 10.70 g/dL (11.27-16.99); Mean Corpuscular HGB Conc 32.7 g/dL (30-55); Mean Corpuscular Hemoglobin 31.5 pg (27-33); Mean Corpuscular Volume 96.2 fl (85-98); Nucleated Red Blood Cells % 0 %; Platelet Count 250 10^3/cmm (157-399); Red Blood Count 3.40 10^6/uL (3.85-5.65); White Blood Count 16.26 10^3/uL (3.29-11.43)
[2025-06-29 14:49] LABS: Alanine Aminotransferase 7 U/L (0-33); Albumin Level 4.5 g/dL (3.5-5.2); Alkaline Phosphatase 148 U/L (35-105); Anion Gap 13.8 (5-19); Aspartate Amino Transferase 11 U/L (0-32); Blood Urea Nitrogen 14 mg/dL (8-23); Calcium 9.4 mg/dL (8.5-10.5); Carbon Dioxide 24 mmol/L (22-29); Chloride 105 mmol/L (98-107); Globulin 3.5 g/dL (1.3-4.6); Glucose 97 mg/dL (65-115); Osmolality Calculated 288 mOsm/kg (285-295); Potassium 3.8 mmol/L (3.5-5.1); Sodium 139 mmol/L (136-145); Total Protein 8.0 g/dL (6.6-8.7)
== END 2025-06-29 13:47 | disposition home or self-care (01) ==
LOC: LAB 13:48
PROVIDERS: PCP Family Medicine; Visit Provider Internal Medicine
DX: C93.10 Chronic myelomonocytic leukemia not having achieved remission (principal)
CPT/HCPCS: 36415; 80053; 83615; 85025

== ENCOUNTER → 2025-07-08 12:37 | Outpatient (BNVA) | payer MEDICARE, OTHER, SELFPAY | PROVIDERS: PCP Family Medicine; Visit Provider Family Medicine | DX: K52.9 Noninfective gastroenteritis and colitis, unspecified (principal); Z85.6 Personal history of leukemia; R10.9 Unspecified abdominal pain | CPT/HCPCS: 85025 ==

== ENCOUNTER → 2025-07-09 12:30 | Outpatient (BNVA) | payer MEDICARE, OTHER, SELFPAY | PROVIDERS: PCP Family Medicine; Visit Provider Family Medicine | DX: K52.9 Noninfective gastroenteritis and colitis, unspecified (principal); Z85.6 Personal history of leukemia; R10.9 Unspecified abdominal pain; D64.9 Anemia, unspecified | CPT/HCPCS: 80053; 83735; 83993; 84443; 85025; 86364; 87177; 87209; 87328; 87329; 87493 ==

== ENCOUNTER 2025-07-14 06:54 | Outpatient (CLI) | payer MEDICARE, OTHER, SELFPAY ==
--- NOTE | 2025-07-14 08:00 | CT_ITS ---
WS: [id number] CT ABDOMEN AND PELVIS WITH CONTRAST HISTORY: f/u mesenteric lymphadenopathy, abd pain, diarrhea TECHNIQUE: Imaging performed of the abdomen and pelvis with IV contrast. Single phase imaging of the abdomen. Coronal and sagittal reformats are submitted. All CT scans at [facility] use at least one of these dose optimization techniques: automated exposure control; mA and/or kV adjustment per patient size (includes targeted exams where dose is matched to clinical indication); or iterative reconstruction. IV CONTRAST: Omnipaque 350; 100 mL IV. Oral contrast: Yes. DLP: 348.38 mGy.cm COMPARISON: 02/11/2025 Lower thorax: There are few very tiny nodules at the lung bases. Some of these are calcified. No change. Heart is normal size. Small hiatal hernia. Liver/biliary system: The entire liver is not included. RIGHT diaphragm is elevated and the liver is high riding. Gallbladder: Normal. No gallstones or wall thickening. No pericholecystic fluid. Pancreas: Normal size pancreas and pancreatic duct. No adjacent inflammation. Spleen: Enlarged spleen measures 15.5 cm in length. Heterogeneous enhancement of the spleen with areas of decreased attenuation. The areas of decreased attenuation have increased. Adrenal glands: Normal. Right kidney: No change. No obstruction. Nonobstructing calcifications on cortical hypodensities are stable. Left kidney: No change. No obstruction. Nonobstructing calcifications are stable. Aorta: Moderate atherosclerosis with no aneurysm. Moderate calcification in the mid to distal SMA. Calcified plaque extends into the celiac axis and branches. Lymphadenopathy: Reidentified are numerous mildly enlarged central mesenteric and retroperitoneal lymph nodes. Lymph nodes have's to slightly increased in size and number since 02/11/2025. Largest lymph node 13 mm in the aortocaval location. Paraesophageal lymph node as slightly increased in size and is hyperemic. Free fluid: None. GI tract: Mild thickening at the GE junction may be due to under distention of the stomach. No small bowel obstruction. No colon obstruction. There is diffuse constipation within the colon but greatest in the cecum and ascending colon. Mild sigmoid diverticulosis without acute diverticulitis. Prior appendectomy. Abdominal wall: Thinning of the abdominal wall musculature. Pelvis: No free fluid in the pelvis. No pathologically enlarged lymph nodes in the inguinal region. Bones: Sequela from prior sacral insufficiency fractures. Fractures were previously described on MRI from 08/22/2024. L4 fracture with vertebroplasty. CT/CT abdomen pelvis w con* [id number] IMPRESSION: 1. There has been a slight increase in size and number of the central mesenter ic and retroperitoneal lymph nodes since 02/11/2025. 2. Splenomegaly. Size of the spleen as not increased but there is more heterog eneity within the spleen. Infiltrating neoplasm cannot be excluded. 3. Extensive atherosclerotic calcification within the aorta and mesenteric art eries. 4. No GI tract obstruction. 5. Remote, known sacral insufficiency fracture.
[2025-07-14] MEDS: iohexol 350 mg/mL 500 mL Btl (per mL) PO (08:09)
[2025-07-14] MEDS: iohexol 350 mg/mL 500 mL Btl (per mL) IV (08:33)
== END 2025-07-14 06:55 | disposition home or self-care (01) ==
LOC: RAD 06:55
PROVIDERS: PCP Family Medicine; Visit Provider Family Medicine
DX: K52.9 Noninfective gastroenteritis and colitis, unspecified (principal); Z85.6 Personal history of leukemia; K44.9 Diaphragmatic hernia without obstruction or gangrene; R16.1 Splenomegaly, not elsewhere classified; R59.1 Generalized enlarged lymph nodes; K59.00 Constipation, unspecified; K57.30 Diverticulosis of large intestine without perforation or abscess without bleeding; Z90.49 Acquired absence of other specified parts of digestive tract
CPT/HCPCS: 74177

== ENCOUNTER → 2025-07-21 12:48 | Outpatient (BNVA) | payer MEDICARE, OTHER, SELFPAY | PROVIDERS: PCP Family Medicine; Visit Provider Dermatology | DX: C44.319 Basal cell carcinoma of skin of other parts of face (principal); C44.41 Basal cell carcinoma of skin of scalp and neck | CPT/HCPCS: 12042; 12052; 17311 ==

== ENCOUNTER → 2025-07-31 11:29 | Outpatient (BNVA) | payer MEDICARE, OTHER, SELFPAY | PROVIDERS: PCP Family Medicine; Visit Provider Dermatology | DX: D04.4 Carcinoma in situ of skin of scalp and neck (principal); D48.5 Neoplasm of uncertain behavior of skin | CPT/HCPCS: 11102; 99213 ==

== ENCOUNTER → 2025-08-05 11:00 | Outpatient (BNVA) | payer MEDICARE, OTHER, SELFPAY | PROVIDERS: PCP Family Medicine; Visit Provider Nurse Practitioner Women's Health | DX: N39.3 Stress incontinence (female) (male) (principal) | CPT/HCPCS: 81000; 87086 ==

== ENCOUNTER 2025-08-07 09:26 | Outpatient (CLI) | payer MEDICARE, OTHER, SELFPAY ==
--- NOTE | 2025-08-07 10:00 | NM_ITS ---
WS: [id number] NUCLEAR MEDICINE HIDA SCAN WITH GALLBLADDER EJECTION FRACTION HISTORY: RUQ pain diarrhea, neg gallbladder on ct COMPARISON: CT 07/14/2025 TECHNIQUE: The patient was intravenously injected with 7.8 mCi of TC99m Mebrofenin. Immediate imaging over the right upper quadrant was followed by 5 minute image and additional images for a total of 60 minutes. Normal uptake of radiotracer throughout the liver. Activity identified in the gallbladder at 20 minutes and well distended by 60 minutes. Activity in the proximal small bowel was seen by 20 minutes. Good washout of the radiotracer from the liver by 60 minutes. The patient then drank 8 ounces of Ensure Plus. Ejection fraction at 60 minutes was 37%. Normal GB ejection fraction is 35-75%. Post fatty meal symptoms: None. NM/NM hepatobiliary w phar* [id number] IMPRESSION: 1. Normal HIDA scan. 2. Normal gallbladder ejection fraction. Low normal gallbladder ejection fract ion.
== END 2025-08-07 09:27 | disposition home or self-care (01) ==
LOC: RAD 09:29
PROVIDERS: PCP Family Medicine; Visit Provider Family Medicine
DX: R10.9 Unspecified abdominal pain (principal); K52.9 Noninfective gastroenteritis and colitis, unspecified
CPT/HCPCS: 78227; A9537

== ENCOUNTER → 2025-08-31 13:40 | Outpatient (BNVA) | payer MEDICARE, OTHER, SELFPAY | PROVIDERS: PCP Family Medicine; Visit Provider Family Medicine | DX: M81.0 Age-related osteoporosis without current pathological fracture (principal); S32.10XD Unspecified fracture of sacrum, subsequent encounter for fracture with routine healing; S32.040A Wedge compression fracture of fourth lumbar vertebra, initial encounter for closed fracture; X58.XXXA Exposure to other specified factors, initial encounter | CPT/HCPCS: 80048 ==

== ENCOUNTER → 2025-09-10 13:26 | Outpatient (BNVA) | payer MEDICARE, OTHER, SELFPAY | PROVIDERS: PCP Family Medicine; Visit Provider Dermatology | DX: C44.41 Basal cell carcinoma of skin of scalp and neck (principal) | CPT/HCPCS: 11623; 12042 ==

== ENCOUNTER → 2025-09-14 11:00 | Outpatient (BNVA) | payer MEDICARE, OTHER, SELFPAY | PROVIDERS: PCP Family Medicine; Visit Provider Family Medicine | DX: N39.0 Urinary tract infection, site not specified (principal) | CPT/HCPCS: 81003; 87086 ==

== ENCOUNTER → 2025-09-21 11:31 | Outpatient (BNVA) | payer MEDICARE, OTHER, SELFPAY | PROVIDERS: PCP Family Medicine; Visit Provider Dermatology | DX: Z85.820 Personal history of malignant melanoma of skin (principal); Z08 Encounter for follow-up examination after completed treatment for malignant neoplasm; Z85.828 Personal history of other malignant neoplasm of skin; Z92.25 Personal history of immunosuppression therapy; L57.0 Actinic keratosis | CPT/HCPCS: 17000; 99213 ==